=== PATIENT | female | born 1950 | race Caucasian/White ===

== ENCOUNTER 2023-02-02 08:36 | Outpatient (OUT) | payer MEDICARE, SELFPAY ==
[2023-02-02 08:59] LABS: Basophils Percent Auto 0.5 % (0.2-2.0); Eosinophils Absolute Auto 0.2 10^3/uL (0.0-0.7); Eosinophils Percent Auto 3.7 % (0.9-7.0); Hematocrit 41.5 % (36.0-48.0); Hemoglobin 13.6 g/dL (12.0-16.0); Lymphocytes Absolute Auto 1.5 10^3/uL (1.2-3.8); Lymphocytes Percent Auto 38.3 % (20.5-60.0); Mean Corpuscular HGB Conc 32.8 g/dL (29.9-35.2); Mean Corpuscular Hemoglobin 31.3 pg (26.7-34.0); Mean Corpuscular Volume 95.6 fL (81.0-99.0); Mean Platelet Volume 9.3 fL (9.5-13.5); Monocytes Absolute Auto 0.3 10^3/uL (0.3-0.8); Monocytes Percent Auto 7.7 % (1.7-12.0); Neutrophils Percent Auto 49.8 % (43.0-75.0); Platelet Count 244 10^3/uL (150-450); Red Blood Count 4.34 10^6/uL (4.20-5.40); Red Cell Distribution Width 13.1 % (11.0-15.0)
[2023-02-02 09:21] LABS: Estimated Average Glucose 111 mg/dL; Glycohemoglobin A1C 5.5 % (4.5-6.2)
[2023-02-02 10:05] LABS: Alanine Aminotransferase 24 U/L (14-59); Albumin Globulin Ratio 0.9; Albumin Level 3.5 g/dL (3.4-5.0); Alkaline Phosphatase 68 U/L (46-116); Anion Gap 12.9; Aspartate Amino Transferase 20 U/L (15-37); BUN Creatinine Ratio 22.3; Bilirubin Total 0.5 mg/dL (0.2-1.0); Calcium 8.8 mg/dL (8.5-10.1); Carbon Dioxide 26.5 mmol/L (21.0-32.0); Chloride 105 mmol/L (98-107); Chol HDL Ratio 3.3; Cholesterol 225 mg/dL (<=200); Estimated GFR (African America >60 (>=60); Estimated GFR (Non-African Ame 52 (>=60); Free T3 2.35 pg/mL (2.18-3.98); Glucose 94 mg/dL (74-106); HDL Cholesterol 68 mg/dL (40-60); Potassium 4.4 mmol/L (3.5-5.1); Sodium 140 mmol/L (136-145); Total Protein 7.5 g/dL (6.4-8.2); Triglycerides 143 mg/dL (<=150); VLDL CHOLESTEROL 28.6 mg/dL
== END 2023-02-02 08:37 | disposition home or self-care (01) ==
PROVIDERS: PCP Family Medicine; Visit Provider Family Medicine
DX: E78.00 Pure hypercholesterolemia, unspecified (principal); R53.83 Other fatigue; Z12.12 Encounter for screening for malignant neoplasm of rectum; R73.09 Other abnormal glucose
CPT/HCPCS: 36415; 80053; 80061; 83036; 84436; 84443; 84481; 85025

== ENCOUNTER 2023-02-03 10:23 | Outpatient (REF) | payer MEDICARE, SELFPAY ==
[2023-02-03 15:48] LABS: Occult Blood Negative
== END 2023-02-03 10:24 | disposition home or self-care (01) ==
LOC: LAB 10:23
PROVIDERS: PCP Family Medicine; Visit Provider Family Medicine
DX: Z12.12 Encounter for screening for malignant neoplasm of rectum (principal)
CPT/HCPCS: G0328

== ENCOUNTER 2023-07-15 14:00 | Outpatient (OUT) | payer MEDICARE, SELFPAY ==
--- NOTE | 2023-07-15 14:08 | XR_ITS ---
The [address] [address] Patient Name: MAGALI ALDRICH MRN: [id number] date: 1950 Sex: F Assigned Patient Location: [facility] Current Patient Location: Accession/Order Number: [id number] Exam Date: 07/15/2023 14:10 Report Date: 07/16/2023 11:09 At the request of: KERRIE ALVARES Procedure: XR cervical spine 2-3V PROCEDURE: XR cervical spine 2-3V DATE: 07/15/2023 2:10 PM EDT COMPARISONS: None. CLINICAL INDICATION: 72 years Female left arm numbness R20.0 FINDINGS: There is no evidence of fractures, subluxation or other acute osseous abnormalities. There is mild intervertebral disc space degenerative changes C5-6 and C6-7. There is minimal anterior subluxation C7 on T1, probably secondary to facet degenerative changes. There is mild scattered cervical facet degenerative changes. XR/XR cervical spine 2-3V IMPRESSION: These radiographic views of the cervical spine show no evidence of acute abnormalities. Scattered degenerative spondylosis. Electronically authenticated by: BK PARK Date: 07/16/2023 11:09
== END 2023-07-15 14:01 | disposition home or self-care (01) ==
LOC: RAD 14:03
PROVIDERS: PCP Family Medicine; Visit Provider Family Medicine
DX: R20.0 Anesthesia of skin (principal); M47.812 Spondylosis without myelopathy or radiculopathy, cervical region
CPT/HCPCS: 72040

== ENCOUNTER 2023-07-22 08:48 | Outpatient (RCR) | payer MEDICARE, SELFPAY | END 2023-08-20 17:10 | disposition home or self-care (01) | LOC: PT 08:48 | PROVIDERS: PCP Family Medicine; Visit Provider Family Medicine | DX: M54.9 Dorsalgia, unspecified (principal); R20.0 Anesthesia of skin | CPT/HCPCS: 97110; 97140; 97162 ==

== ENCOUNTER 2023-08-06 09:18 | Outpatient (OUT) | payer MEDICARE, SELFPAY ==
--- NOTE | 2023-08-06 09:23 | MM_ITS ---
Patient Name: MAGALI ALDRICH MR#: [id number] : 1950 Exam Date: 08/06/2023 Ordering Doctor: DR Rico Hammer . RADIOLOGY REPORT PROCEDURE: MM TOMOSYNTHESIS SCREENING BI COMPARISON: MG MAMM SCREEN 3D SANTANA CAD, 07/22/2021. MG MAMM SCREEN 3D SANTANA CAD, 07/24/2022. INDICATIONS: screening Calculator Name NCI Breast Cancer Risk Assessment Tool 5 Year Breast Cancer Risk 2.00% Lifetime Breast Cancer Risk 4.50% Personal Breast Cancer No Personal Ovarian Cancer No Treatments None Family Cancers Mother with lung cancer at age 80; Grandfather-maternal with colon cancer at age ~90. LOCATION: The [facility] BREAST COMPOSITION: The breasts are almost entirely fatty. FINDINGS: DIAGNOSTIC CATEGORY 1--NEGATIVE. NO CHANGE FROM COMPARISON ASSESSMENT. Scattered benign-appearing calcifications are present. Scattered benign-appearing lymph nodes are present. RIGHT BREAST: No significant suspicious finding. LEFT BREAST: No significant suspicious finding. RECOMMENDATIONS: ROUTINE MAMMOGRAM AND CLINICAL EVALUATION IN 12 MONTHS. PLEASE NOTE: A NORMAL MAMMOGRAM DOES NOT EXCLUDE THE POSSIBILITY OF BREAST CANCER. A CLINICALLY SUSPICIOUS PALPABLE LUMP SHOULD BE BIOPSIED. Dictated by: Ford Painter MD on 08/06/2023 at 10:21 Approved by: Ford Painter MD on 08/06/2023 at 10:22
--- OUTSIDE RECORDS SUMMARY | 2023-08-06 09:28 | XMS_ITS | CCD ---
Author Organization [facility] Care Team Providers Care Foam Fabricator Name Role Phone Kerrie Hammer Primary Care Physician Kerrie Hammer Referring Unavailable NILLNoam Attending Unavailable NILL, Noam Peter Attending Unavailable LueLorena Attending Unavailable LueLorena Attending Unavailable LueLorena Attending Unavailable LueLorena Attending Unavailable HOY ., DR SY Admitting Unavailable HOY ., DR SY Attending Unavailable HOY ., DR SY Consulting Unavailable HOY ., DR SY Primary Care Unavailable NILL ., DR JEONG Attending Unavailable NILL ., DR JEONG Consulting Unavailable NILL ., DR JEONG Admitting Unavailable HOY ., DR SY Primary Care Unavailable YARITZA II, TYLER Consulting Unavailable KOMA, SHANTHI Consulting Unavailable HOY ., DR SY Admitting Unavailable HOY ., DR SY Attending Unavailable HOY ., DR SY Consulting Unavailable HOY ., DR SY Primary Care Unavailable ZIEBER, DR RUTH Peter Consulting Unavailable HOY ., DR SY Primary Care Unavailable HOY ., DR SY Admitting Unavailable HOY ., DR SY Attending Unavailable HOY ., DR SY Consulting Unavailable [place], DR KENN Loyd Consulting Unavailable HOY ., DR SY Primary Care Unavailable HOY ., DR SY Admitting Unavailable HOY ., DR SY Attending Unavailable HOY ., DR SY Consulting Unavailable Allergies Allergy Classification Reported Allergen(s) Allergy Type Date of Onset Reaction(s) Facility (3 sources) Pseudoephedrine; Translations: [pseudoephedrine] Drug Allergy Eruption (morphologic abnormality) [facility] (3 sources) Sulfonamides (Antibiotic); Translations: [sulfa drugs] Drug allergy Unknown (qualifier value), Eruption of skin (disorder) [facility] (1 source) Pseudoephedrine Drug Allergy [facility] (1 source) Sulfonamides (Antibiotic) Drug allergy (disorder) [facility] Medications Current Medications Medication Drug Class(es) Dates Sig (Normalized) Sig (Original) cetirizine hydrochloride 10 mg oral tablet (1 source) Histamine-1 Receptor Antagonist Start: 04-08-2022 take 1 tablet by mouth at bedtime cetirizine 10 mg Tab 10 mg = 1 tab(s), Oral, Bedtime, Refills(s) 0 Start Date: 04/08/22 Status: Ordered fluticasone propionate 0.05 mg/actuat metered dose nasal spray (3 sources) Corticosteroid Start: 04-08-2022 Flonase 0.05 mg/inh [place] 1 spray(s), Nasal, BID, Refill(s) 0 Start Date: 04/08/22 Status: Ordered Start: 06-04-2021 fluticasone pr opionate Inhalation, Refills(s) 0 Start Date: 06/04/21 Status: Ordered Start: 06-04-2021 fluticasone fu roate 50 mcg inhalation powder Inhalation, q24hr, Refills(s) 0 Start Date: 06/04/21 Status: Ordered ICaps AREDS 2 (2 sources) Start: 06-04-2021 ICaps AREDS 2 Refill(s) 0 Start Date: 06/04/21 Status: Ordered predniSONE (1 source) Start: 10-08-2021 predniSONE Ora l, Daily, Refills(s) 0 Start Date: 10/08/21 Status: Ordered simvastatin 20 mg oral tablet (2 sources) HMG-CoA Reductase Inhibitor Start: 06-04-2021 take 1 mg by mouth once daily at bedtime simvastatin 20 mg Tab mg tab(s), Oral, Once a day (at bedtime), Refills(s) 0 Start Date: 06/04/21 Status: Ordered Problems Active Problems Problem Classification Problem Date Documented Da te Episodic/Chronic Abdominal pain (3 sources) Pelvic and perineal pain; Translations: [Pelvic and perineal pain] Onset: 10-08-2021 Episodic Asthma (1 source) Asthma 04-08-2022 Chronic Congestive heart failure; nonhypertensive (1 source) Unspecified diastolic (congestive) heart failure; Translations: [UNSPECIFIED DIASTOLIC HEART FAILURE] Onset: 07-30-2022 Chronic Disorders of lipid metabolism (5 sources) Hypercholesterolemia ; Translations: [Hyperlipidemia] Onset: 05-28-2022 06-04-2021 Chronic Diverticulosis and diverticulitis (1 source) Diverticulosis of large intestine without perforation or abscess without bleeding; Translations: [DVRTCLOS LG INT NO PERF/ABSC W/O BL] Onset: 05-28-2022 Chronic Hypertension with complications and secondary hypertension (1 source) Hypertensive heart disease with heart failure; Translations: [HTN HEART DISEASE W/HEART FAIL] Onset: 07-30-2022 Chronic Malaise and fatigue (4 sources) Other fatigue; Translations: [OTHER FATIGUE] Onset: 07-25-2022 Episodic Menopausal disorders (7 sources) Atrophic vaginitis; Translations: [Postmenopausal atrophic vaginitis] Onset: 10-08-2021 Chronic Nutritional deficiencies (4 sources) Vitamin D deficiency, unspecified; Translations: [VITAMIN D DEFICIENCY UNSPECIFIED] Onset: 12-02-2021 Chronic Osteoarthritis (3 sources) Arthritis; Translations: [Unspecified osteoarthritis, unspecified site] Onset: 05-28-2022 06-04-2021 Chronic Other aftercare (1 source) Other shelter (current) drug therapy; Translations: [OTH CUSTODIAL CURRENT DRUG THERAPY] Onset: 05-28-2022 Episodic Other diseases of bladder and urethra (3 sources) Urethral caruncle; Translations: [Urethral caruncle] Onset: 10-08-2021 Episodic Other diseases of veins and lymphatics (1 source) Venous insufficiency of leg 04-08-2022 Episodic Other diseases of veins and lymphatics (1 source) Other specified disorders of veins; Translations: [OTHER SPECIFIED DISORDERS OF VEINS] Onset: 05-28-2022 Episodic Other diseases of veins and lymphatics (1 source) Venous insufficiency (chronic) (peripheral); Translations: [VENOUS INSUFF CHRONIC PERIPHERAL] Onset: 05-28-2022 Episodic Other female genital disorders (1 source) Adenomatous polyp of cervix; Translations: [Polyp of cervix uteri] Onset: 10-08-2021 Episodic Other female genital disorders (2 sources) Polyp of cervix 06-24-2021 Episodic Other nutritional; endocrine; and metabolic disorders (1 source) Body mass index 30+ - obesity 06-04-2021 Chronic Other nutritional; endocrine; and metabolic disorders (1 source) Body mass index 40+ - severely obese 04-24-2022 Chronic Other screening for suspected conditions (not mental disorders or infectious disease) (6 sources) Screening for malignant neoplasm of colon done; Translations: [Encounter for screening for malignant neoplasm of colon] Onset: 04-24-2022 Episodic Other upper respiratory disease (1 source) Seasonal allergic rhinitis 04-08-2022 Chronic Prolapse of female genital organs (2 sources) Cystocele 06-24-2021 Chronic Residual codes; unclassified (1 source) Dependent edema 04-08-2022 Episodic Residual codes; unclassified (1 source) Family history of malignant neoplasm of digestive organs; Translations: [FAM HX MALIG NEOPLASM DIGESTIV ORGN] Onset: 07-29-2022 Episodic Residual codes; unclassified (1 source) Family history of malignant neoplasm of trachea, bronchus and lung; Translations: [FAM HX MALIG NEOPLSM TRACH BRON LNG] Onset: 07-29-2022 Episodic Residual codes; unclassified (1 source) Acquired absence of other specified parts of digestive tract; Translations: [ACQ ABSENCE OTH PART DIGESTV TRACT] Onset: 05-28-2022 Episodic Unclassified (1 source) Patient encounter status 04-24-2022 Past or Other Problems Problem Classification Problem Date Documented Da te Episodic/Chronic Deficiency and other anemia (1 source) Anemia, unspecified; Translations: [ANEMIA UNSPECIFIED] Onset: 12-04-2021 Episodic Diabetes mellitus without complication (1 source) Other abnormal glucose; Translations: [OTHER ABNORMAL GLUCOSE] Onset: 12-04-2021 Episodic Other nutritional; endocrine; and metabolic disorders (1 source) Overweight; Translations: [OVERWEIGHT] Onset: 12-04-2021 Episodic Residual codes; unclassified (1 source) Localized edema; Translations: [LOCALIZED EDEMA] Onset: 12-04-2021 Episodic Unclassified (2 sources) Finding of sensation of bladder 06-24-2021 Results Test Name Value Interpretation Reference Range Facility C. DIFF PCRon 07-25-2022 C. DIFFICILE PCR Negative Normal NEGATIVE [facility] Comment on above: Performed By: #### [facility] #### [facility] [address] [place] [address] Dr. Bhumi Lewis BNPon 07-24-2022 Natriuretic peptide B (Bld) [Mass/Vol] 381.0 pg/mL Normal <=900.0 [facility] Comment on above: Performed By: #### T SH, LIVER, T7, BNP, BMP #### [facility] [address] [place] [address] Dr. Bhumi Lewis CBC AUTO DIFFon 07-24-2022 BASO # 0.0 103/ul Normal 0.0-0.1 [facility] Comment on above: Performed By: #### C BC #### [facility] [address] [place] [address] Dr. Bhumi Lewis Basophils/100 WBC (Bld) 0.4 % Normal 0.2-2.0 [facility] Comment on above: Performed By: #### C BC #### [facility] [address] [place] [address] Dr. Bhumi Lewis EO # 0.1 103/ul Normal 0.0-0.7 [facility] Comment on above: Performed By: #### C BC #### [facility] [address] [place] [address] Dr. Bhumi Lewis Eosinophils/100 WBC (Bld) 2.7 % Normal 0.9-7.0 [facility] Comment on above: Performed By: #### C BC #### [facility] [address] [place] [address] Dr. Bhumi Lewis Erythrocyte distribution width (RBC) [Ratio] 13.1 % Normal 11.0-15.0 [facility] Comment on above: Performed By: #### C BC #### [facility] [address] [place] [address] Dr. Bhumi Lewis Hematocrit (Bld) [Volume fraction] 40.0 % Normal 36.0-48.0 [facility] Comment on above: Performed By: #### C BC #### [facility] [address] [place] [address] Dr. Bhumi Lewis Hemoglobin (Bld) [Mass/Vol] 13.2 g/dL Normal 12.0-16.0 [facility] Comment on above: Performed By: #### C BC #### [facility] [address] [place] [address] Dr. Bhumi Lewis IG # 0.02 10e3/ul Normal 0.00-0.03 [facility] Comment on above: Performed By: #### C BC #### [facility] [address] [place] [address] Dr. Bhumi Lewis IG % 0.4 % Normal 0.0-0.5 [facility] Comment on above: Performed By: #### C BC #### [facility] [address] [place] [address] Dr. Bhumi Lewis LYMPH # 1.4 103/ul Normal 1.2-3.8 [facility] Comment on above: Performed By: #### C BC #### [facility] [address] [place] [address] Dr. Bhumi Lewis Lymphocytes/100 WBC (Bld) 30.3 % Normal 20.5-60.0 [facility] Comment on above: Performed By: #### C BC #### [facility] [address] [place] [address] Dr. Bhumi Lewis MANUAL DIFF REQ NO Normal [facility] Comment on above: Performed By: #### C BC #### [facility] [address] [place] [address] Dr. Bhumi Lewis MCH (RBC) [Entitic mass] 31.1 pg Normal 26.7-34.0 [facility] Comment on above: Performed By: #### C BC #### [facility] [address] [place] [address] Dr. Bhumi Lewis MCHC (RBC) [Mass/Vol] 33.0 g/dL Normal 29.9-35.2 [facility] Comment on above: Performed By: #### C BC #### [facility] [address] [place] [address] Dr. Bhumi Lewis MCV (RBC) [Entitic vol] 94.3 fL Normal 81.0-99.0 [facility] Comment on above: Performed By: #### C BC #### [facility] [address] [place] [address] Dr. Bhumi Lewis MONO # 0.4 103/ul Normal 0.3-0.8 [facility] Comment on above: Performed By: #### C BC #### [facility] [address] [place] [address] Dr. Bhumi Lewis Monocytes/100 WBC (Bld) 9.3 % Normal 1.7-12.0 [facility] Comment on above: Performed By: #### C BC #### [facility] [address] [place] [address] Dr. Bhumi Lewis NEUT # 2.6 103/ul Normal 1.4-6.5 [facility] Comment on above: Performed By: #### C BC #### [facility] [address] [place] [address] Dr. Bhumi Lewis Neutrophils/100 WBC (Bld) 56.9 % Normal 43.0-75.0 [facility] Comment on above: Performed By: #### C BC #### [facility] [address] [place] [address] Dr. Bhumi Lewis Platelet mean volume (Bld) [Entitic vol] 9.2 fL Critically low 9.5-13.5 [facility] Comment on above: Performed By: #### C BC #### [facility] [address] [place] [address] Dr. Bhumi Lewis PLT 249 103/ul Normal 150-450 [facility] Comment on above: Performed By: #### C BC #### [facility] [address] [place] [address] Dr. Bhumi Lewis RBC 4.24 106/ul Normal 4.20-5.40 [facility] Comment on above: Performed By: #### C BC #### [facility] [address] [place] [address] Dr. Bhumi Lewis WBC 4.5 103/ul Normal 4.0-11.0 [facility] Comment on above: Performed By: #### C BC #### [facility] [address] [place] [address] Dr. Bhumi Lewis FREE THYROXINE INDEX T7on 04 -14-2023 FTI 2.18 Normal 1.30-4.50 [facility] Comment on above: Performed By: #### T SH, LIVER, T7, BNP, BMP #### [facility] [address] [address] [address] Bhumi Lewis T3U 33.0 % Normal 30.0-39.0 [facility] Comment on above: Performed By: #### T SH, LIVER, T7, BNP, BMP #### [facility] [address] [place] [address] Dr. Bhumi Lewis T4 [Mass/Vol] 6.60 ug/dL Normal 4.80-13.90 [facility] Comment on above: Performed By: #### T SH, LIVER, T7, BNP, BMP #### [facility] [address] [place] [address] Dr. Bhumi Lewis LIVER PROFILEon 07-24-2022 Albumin [Mass/Vol] 3.4 g/dL Normal 3.4-5.0 [facility] Comment on above: Performed By: #### T SH, LIVER, T7, BNP, BMP #### [facility] [address] [address] [address] Bhumi Lewis Albumin/Globulin [Mass ratio] 0.9 {ratio} Normal [facility] Comment on above: Performed By: #### T SH, LIVER, T7, BNP, BMP #### [facility] [address] [address] [address] Bhumi Lewis ALP [Catalytic activity/Vol] 66 U/L Normal 46-116 [facility] Comment on above: Performed By: #### T SH, LIVER, T7, BNP, BMP #### [facility] [address] [address] [address] Bhumi Lewis ALT [Catalytic activity/Vol] 26 U/L Normal 14-59 [facility] Comment on above: Performed By: #### T SH, LIVER, T7, BNP, BMP #### [facility] [address] [address] [address] Bhumi Lewis AST [Catalytic activity/Vol] 21 U/L Normal 15-37 [facility] Comment on above: Performed By: #### T SH, LIVER, T7, BNP, BMP #### [facility] [address] [place] [address] Dr. Bhumi DILLONI, CONJUGATED 0.1 mg/dL Normal 0.0-0.2 [facility] Comment on above: Performed By: #### T SH, LIVER, T7, BNP, BMP #### [facility] [address] [place] [address] Dr. Bhumi Lewis Bilirubin [Mass/Vol] 0.2 mg/dL Normal 0.2-1.0 [facility] Comment on above: Performed By: #### T SH, LIVER, T7, BNP, BMP #### [facility] [address] [place] [address] Dr. Bhumi Lewis Globulin (S) [Mass/Vol] 4.0 g/dL Normal [facility] Comment on above: Performed By: #### T SH, LIVER, T7, BNP, BMP #### [facility] [address] [place] [address] Dr. Bhumi Lewis Protein [Mass/Vol] 7.4 g/dL Normal 6.4-8.2 [facility] Comment on above: Performed By: #### T SH, LIVER, T7, BNP, BMP #### [facility] [address] [place] [address] Dr. Bhumi Lewis MG MAMM SCREEN 3D SANTANA CADon 07-24-2022 MG MAMM SCREEN 3D SANTANA CAD Patient: MAGALI ALDRICH Exam Date: 07/24/2022 : 1950 Gender:F Ordering : DR KERRIE HAMMER . Admission #: [id number] Family : Order #: [id number] CLICK HERE TO VIEW EXAM RADIOLOGY REPORT PROCEDURE: MAMMOGRAM SCREENING 3D BILATERAL CAD COMPARISON: MG MAMM SCREEN 3D SANTANA CAD, 07/16/2020. MG MAMM SCREEN 3D SANTANA CAD, 07/22/2021. INDICATIONS: Screening mammography Calculator Name NCI Breast Cancer Risk Assessment Tool 5 Year Breast Cancer Risk 2.00% Lifetime Breast Cancer Risk 4.80% Personal Breast Cancer No Personal Ovarian Cancer No Treatments None Family Cancers Mother with lung cancer at age 80; Grandfather-maternal with colon cancer at age 90. LOCATION: [facility] BREAST COMPOSITION: Almost entirely fatty. FINDINGS: DIAGNOSTIC CATEGORY 1--NEGATIVE. NO CHANGE FROM COMPARISON ASSESSMENT. Scattered benign-appearing calcifications are present. Scattered benign-appearing lymph nodes are present. RIGHT BREAST: No significant suspicious finding. LEFT BREAST: No significant suspicious finding. RECOMMENDATIONS: ROUTINE MAMMOGRAM AND CLINICAL EVALUATION IN 12 MONTHS. PLEASE NOTE: A NORMAL MAMMOGRAM DOES NOT EXCLUDE THE POSSIBILITY OF BREAST CANCER. A CLINICALLY SUSPICIOUS PALPABLE LUMP SHOULD BE BIOPSIED. Dictated by: Kenn Painter MD on 07/27/2022 at 09:51 Approved by: Kenn Pain[place] MD on 07/27/2022 at 09:52 Normal [facility] PROF CHEM 8 (BAS METB)on Anion gap [Moles/Vol] 15.0 mmol/L Normal [facility] Comment on above: Performed By: #### T SH, LIVER, T7, BNP, BMP #### [facility] [address] [place] [address] Dr. Bhumi Lewis Calcium [Mass/Vol] 9.0 mg/dL Normal 8.5-10.1 [facility] Comment on above: Performed By: #### T SH, LIVER, T7, BNP, BMP #### [facility] [address] [place] [address] Dr. Bhumi Lewis Chloride [Moles/Vol] 107 mmol/L Normal 98-107 [facility] Comment on above: Performed By: #### T SH, LIVER, T7, BNP, BMP #### [facility] [address] [place] [address] Dr. Bhumi Lewis CO2 [Moles/Vol] 26.7 mmol/L Normal 21.0-32.0 [facility] Comment on above: Performed By: #### T SH, LIVER, T7, BNP, BMP #### [facility] [address] [place] [address] Dr. Bhumi Lewis Creatinine [Mass/Vol] 1.01 mg/dL Normal 0.55-1.02 [facility] Comment on above: Performed By: #### T SH, LIVER, T7, BNP, BMP #### [facility] [address] [place] [address] Dr. Bhumi Lewis EGFR-AF [place] >60 Normal >=60 [facility] Comment on above: Performed By: #### T SH, LIVER, T7, BNP, BMP #### [facility] [address] [address] [address] Bhumi Lewis EGFR-NON AF [place] 54 mL/min/1.73m2 Critically low >=60 [facility] Comment on above: Performed By: #### T SH, LIVER, T7, BNP, BMP #### [facility] [address] [place] [address] Dr. Bhumi Lewis Glucose [Mass/Vol] 100 mg/dL Normal 74-106 [facility] Comment on above: Performed By: #### T SH, LIVER, T7, BNP, BMP #### [facility] [address] [place] [address] Dr. Bhumi Lewis Potassium [Moles/Vol] 4.7 mmol/L Normal 3.5-5.1 [facility] Comment on above: Performed By: #### T SH, LIVER, T7, BNP, BMP #### [facility] [address] [place] [address] Dr. Bhumi Lewis Sodium [Moles/Vol] 144 mmol/L Normal 136-145 [facility] Comment on above: Performed By: #### T SH, LIVER, T7, BNP, BMP #### [facility] [address] [place] [address] Dr. Bhumi Lewis Urea nitrogen [Mass/Vol] 22.0 mg/dL Critically high 7.0-18.0 [facility] Comment on above: Performed By: #### T SH, LIVER, T7, BNP, BMP #### [facility] [address] [place] [address] Dr. Bhumi Lewis Urea nitrogen/Creatinine [Mass ratio] 21.8 mg/mg Normal [facility] Comment on above: Performed By: #### T SH, LIVER, T7, BNP, BMP #### [facility] [address] [place] [address] Dr. Bhumi Lewis TSHon 07-24-2022 TSH 2.303 uIU/mL Normal 0.358-3.740 [facility] Comment on above: Performed By: #### T SH, LIVER, T7, BNP, BMP #### [facility] [address] [address] [address] Bhumi Lewis Reminderson 05-29-2022 Reminders - From: Hien White LPN To: GSN - Clinical; Sent: 05/29/2022 13:21:17 EST Show up: 04/26/2032 07:00:00 EST Subject: colonoscopy recall Due Date/Time: 05/27/2032 07:00:00 EST Reminder/Recall Patient is due for screening colonoscopy 05/27/2032. Normal [facility] Outside Colonoscopyon 2022 Outside Colonoscopy [id number] .[id number]:127 Normal [facility] Consent for Procedure/Surger yon 04-27-2022 Consent for Procedure/Surgery [id number] .[id number]:127 Normal [facility] XR DEXA BONE DENSITYon 02-25 XR DEXA BONE DENSITY EXAMINATION: XR DEX A BONE DENSITY, 02/25/2022 8:04 AM EST HISTORY: Primary ovarian failure COMPARISON: DEXA bone densitometry 09/25/2005 TECHNIQUE: Dual-energy X-ray absorptiometry (DEXA) bone density study performed for the axial skeleton. FINDINGS: SPINE ANALYSIS: Average bone mineral density is 1.155 g/cm2. T-score (standard deviation relative to young adult mean): -0.2 . +0.2% change since prior study. HIP ANALYSIS: Lowest bone mineral density is within the right femoral neck, 0.936 g/cm2. T-score (standard deviation relative to young adult mean): -0.7 . -10.0% change since prior study. IMPRESSION: World [employer] Organization Classification: Normal - Low Fracture Risk Electronically authenticated by: RUTH CARTER Date: 2022-02-25 08:56 Normal [facility] Physician Referralon 022 Physician Referral [id number] .[id number]:127 Normal [facility] INSULINon 12-03-2021 Insulin 10.4 uIU/mL Normal 2.6-24.9 [facility] Comment on above: Performed By: #### I NSULIN ####[facility] [id number] [place], [place] [address]GiDr. Bhumi Lewis T4, T3U, FTI [facility] 12-03 Free Thyroxine Index 1.4 Normal 1.2-4.9 [facility] Comment on above: Performed By: #### T HYLC #### [facility] [address] [address] [address] Bhumi Lewis T3 Uptake 23 % Critically low 24-39 [facility] Comment on above: Performed By: #### T HYLC #### [facility] [address] [address] [address] Bhumi Lewis T4 [Mass/Vol] 6.2 ug/dL Normal 4.5-12.[address] [facility] Comment on above: Performed By: #### T HYLC #### [facility] [address] [address] [address] Bhumi Lewis VIT D 25-OH [facility] 2021 Vitamin D, 25-Hydroxy 34.6 ng/mL Normal 30.0-100.0 [facility] Comment on above: Result Comment: Romy min D deficiency has been defined by the [place] of [employer] and an Endocrine Society practice guideline as a level of serum 25-OH vitamin D less than 20 ng/mL (1,2). The Endocrine Society went on to further define vitamin D insufficiency as a level between 21 and 29 ng/mL (2). 1. IOM ([place] [employer]). 2010. Dietary reference intakes for calcium and D. [place]: The National Academies Press. 2. Elizabeth BULLOCK, [place], Yumi JAIMES, et al. Evaluation, treatment, and prevention of vitamin D deficiency: an Endocrine Society clinical practice guideline. JCEM. 2011 Karl[place]; 96(7):1911-30. Performed By: #### V ITADLC ####[facility] [id number] [place], [place] [address]Dr. Bhumi Lewis BNPon 12-02-2021 Natriuretic peptide B (Bld) [Mass/Vol] 225.0 pg/mL Normal <=900.0 [facility] Comment on above: Performed By: #### T SH, BNP, CMP, LIPID ####[facility] [id number] [place], [place] [address]Dr. Bhumi Joshua CBC AUTO DIFFon 12-02-2021 BASO # 0.0 103/ul Normal 0.0-0.1 [facility] Comment on above: Performed By: #### C BC ####[facility] [id number] [place], [place] [address]Dr. Bhumi Lewis Basophils/100 WBC (Bld) 0.2 % Normal 0.2-2.0 [facility] Comment on above: Performed By: #### C BC ####[facility] [id number] [place], [place] [address]Dr. Bhumi Lewis EO # 0.1 103/ul Normal 0.0-0.7 [facility] Comment on above: Performed By: #### C BC ####[facility] [id number] [place], [place] [address]Dr. Bhumi Lewis Eosinophils/100 WBC (Bld) 2.9 % Normal 0.9-7.0 [facility] Comment on above: Performed By: #### C BC ####[facility] [address] [place], [place] [address]Dr. Bhumi Lewis Erythrocyte distribution width (RBC) [Ratio] 13.2 % Normal 11.0-15.0 [facility] Comment on above: Performed By: #### C BC ####[facility] [address] [place], [place] [address]Dr. Bhumi Lewis Hematocrit (Bld) [Volume fraction] 41.6 % Normal 36.0-48.0 [facility] Comment on above: Performed By: #### C BC ####[facility] [address] [place] [id number]. Bhumi Lewis Hemoglobin (Bld) [Mass/Vol] 13.4 g/dL Normal 12.0-16.0 [facility] Comment on above: Performed By: #### C BC ####[facility] [address]desykt[address] [place] [id number]. Bhumi Lewsi IG # 0.01 10e3/ul Normal 0.00-0.03 [facility] Comment on above: Performed By: #### C BC ####[facility] Qtwklxiygo0534 [place] [address]Dr. Bhumi Lewis IG % 0.2 % Normal 0.0-0.5 [facility] Comment on above: Performed By: #### C BC ####[facility] [address] [place] [address]Dr. Bhumi Lewis LYMPH # 1.5 103/ul Normal 1.2-3.8 [facility] Comment on above: Performed By: #### C BC ####[facility] Dyauvqeqfx[address] [place] [address]Dr. Bhumi Lewis Lymphocytes/100 WBC (Bld) 32.2 % Normal 20.5-60.0 [facility] Comment on above: Performed By: #### C BC ####[facility] [address]gcbl[address] [place] [address]Dr. Bhumi Lewis MANUAL DIFF REQ NO Normal [facility] Comment on above: Performed By: #### C BC ####[facility] Zr[address]uqeosp[address] [place] [address]Dr. Bhumi Lewis MCH (RBC) [Entitic mass] 31.7 pg Normal 26.7-34.0 [facility] Comment on above: Performed By: #### C BC ####[facility] [address]fly[address] [place] [address]Dr. Bhumi Lewis MCHC (RBC) [Mass/Vol] 32.2 g/dL Normal 29.9-35.2 [facility] Comment on above: Performed By: #### C BC ####[facility] [address] [place], [place] [address]Dr. Bhumi Joshua MCV (RBC) [Entitic vol] 98.3 fL Normal 81.0-99.0 [facility] Comment on above: Performed By: #### C BC ####[facility] [address]riwy[address] [place] [address]Dr. Bhumi Lewis MONO # 0.4 103/ul Normal 0.3-0.8 [facility] Comment on above: Performed By: #### C BC ####[facility] [address]tdc[address] [place] [address]Dr. Bhumi Joshua Monocytes/100 WBC (Bld) 7.4 % Normal 1.7-12.0 [facility] Comment on above: Performed By: #### C BC ####[facility] E[address] [place] [address]Dr. Bhumi Lewis NEUT # 2.7 103/ul Normal 1.4-6.5 [facility] Comment on above: Performed By: #### C BC ####[facility] Xpuysxmrcr[address] [place] [address]Dr. Kortneynanette Lewis Neutrophils/100 WBC (Bld) 57.1 % Normal 43.0-75.0 [facility] Comment on above: Performed By: #### C BC ####[facility] [address]xobsx[address] [place] [address]Dr. Bhumi Joshua Platelet mean volume (Bld) [Entitic vol] 9.1 fL Critically low 9.5-13.5 [facility] Comment on above: Performed By: #### C BC ####[facility] [address] [place] [address]Dr. Bhumi Joshua PLT 243 103/ul Normal 150-450 [facility] Comment on above: Performed By: #### C BC ####[facility] [address]ywcqwxx[address] [place] [address]Dr. Kortneynanette Joshua RBC 4.23 106/ul Normal 4.20-5.40 [facility] Comment on above: Performed By: #### C BC ####[facility] [address]ury[address] [place] [address]DrSuzy Lewis WBC 4.8 103/ul Normal 4.0-11.0 [facility] Comment on above: Performed By: #### C BC ####[facility] [address]xdxkp[address] [place] [address]Dr. Bhumi Lewis GLYCOHEMOGLOBIN A1Con 2021 ADA RECOMMENDATION SEE BELOW Normal [facility] Comment on above: Result Comment: ADA RECOMMENDED LIMIT 4.0 - 6.0 ADA THERAPEUTIC TARGET < 7.0 ACTION SUGGESTED > 7.0 Performed By: #### A 1C ####[facility] [address] [place] [address]Dr. Bhumi Lewis Glucose [Mass/Vol] 120 mg/dL Normal [facility] Comment on above: Performed By: #### A 1C ####[facility] [address] [place] [address]DrSuzy Lewis HbA1c (Bld) [Mass fraction] 5.8 % Normal 4.5-6.2 [facility] Comment on above: Performed By: #### A 1C ####[facility] [address] [place] [address]Dr. Bhumi Lewis IRONon 12-02-2021 Iron [Mass/Vol] 95.0 ug/dL Normal 50.0-170.0 [facility] Comment on above: Performed By: #### I HIWOT #### [facility] [address] [place], [place] [address] Dr. Bhumi Lewis LIPID PROFILEon 12-02-2021 CHOL-HDL RATIO NORM SEE BELOW Normal [facility] Comment on above: Result Comment: 3.3 - 4.4 LOW RISK 4.4 - 7.1 AVERAGE RISK 7.1 - 11.0 MODERATE RISK >11.0 HIGH RISK Performed By: #### T SH, BNP, CMP, LIPID ####[facility] [address]ks[address]ost[address] [place] [address]DrSuzy Lewis Cholesterol [Mass/Vol] 218 mg/dL Critically high <=200 [facility] Comment on above: Performed By: #### T SH, BNP, CMP, LIPID ####[facility] Ajvoxxkelz17[address] [place] [address]Dr. Bhumi Lewis Cholesterol in HDL [Mass/Vol] 62 mg/dL Critically high 40-60 [facility] Comment on above: Performed By: #### T SH, BNP, CMP, LIPID ####[facility] Uelvmircdc6916 [place] [address]Dr. Bhumi Lewis Cholesterol in LDL [Mass/Vol] 126.6 mg/dL Normal [facility] Comment on above: Performed By: #### T SH, BNP, CMP, LIPID ####[facility] Otdjmxyfkg23[address] [place] [address]Dr. Bhumi Lewis Cholesterol.total/Ch olesterol in HDL [Mass ratio] 3.5 {ratio} Normal [facility] Comment on above: Performed By: #### T SH, BNP, CMP, LIPID ####[facility] [address]xxjmj[address] [place] [address]Dr. Bhumi Lewis HDL NORMAL > or = 60 mg/dl - LO W CARDIOVASCULAR RISK <40 mg/dl - HIGH CARDIOVASCULAR RISK Normal [facility] Comment on above: Performed By: #### T SH, BNP, CMP, LIPID ####[facility] [address] [place] [address]Dr. Bhumi Lewis LDL CALC NORMAL SEE BELOW Normal [facility] Comment on above: Result Comment: <100 mg/dl OPTIMAL 100 - 129 mg/dl NEAR OR ABOVE OPTIMAL 130 - 159 mg/dl BORDERLINE HIGH 160 - 189 mg/dl HIGH >190 mg/dl VERY HIGH Performed By: #### T SH, BNP, CMP, LIPID ####[facility] [address] [place] [address]Dr. Bhumi Lewis Triglyceride [Mass/Vol] 147 mg/dL Normal <=150 [facility] Comment on above: Performed By: #### T SH, BNP, CMP, LIPID ####[facility] Vicxhwskji[address] [place] [address]Dr. Bhumi Lewis VLDL CALC 29.4 mg/dL Normal [facility] Comment on above: Performed By: #### T SH, BNP, CMP, LIPID ####[facility] M[address]vzoi[address] [place] [address]Dr. Bhumi Lewis PROF 14(COMP METB)on 022 Albumin [Mass/Vol] 3.6 g/dL Normal 3.4-5.0 [facility] Comment on above: Performed By: #### T SH, BNP, CMP, LIPID ####[facility] Ek[address]loob[address] [place] [address]Dr. Bhumi Lewis Albumin/Globulin [Mass ratio] 1.0 {ratio} Normal [facility] Comment on above: Performed By: #### T SH, BNP, CMP, LIPID ####[facility] [address]bi[address]ji[address] [place] [address]Dr. Bhumi Lewis ALP [Catalytic activity/Vol] 64 U/L Normal 46-116 [facility] Comment on above: Performed By: #### T SH, BNP, CMP, LIPID ####[facility] [address] [place], [place] [address]Dr. Bhumi Lewis ALT [Catalytic activity/Vol] 21 U/L Normal 14-59 [facility] Comment on above: Performed By: #### T SH, BNP, CMP, LIPID ####[facility] [address]mjosa[address] [place] [address]Dr. Bhumi Lewis Anion gap [Moles/Vol] 13.5 mmol/L Normal [facility] Comment on above: Performed By: #### T SH, BNP, CMP, LIPID ####[facility] [address] [place], [place] [address]Dr. Bhumi Lewis AST [Catalytic activity/Vol] 21 U/L Normal 15-37 [facility] Comment on above: Performed By: #### T SH, BNP, CMP, LIPID ####[facility] [address] [place] [address]Dr. Bhumi Lewis Bilirubin [Mass/Vol] 0.4 mg/dL Normal 0.2-1.0 [facility] Comment on above: Performed By: #### T SH, BNP, CMP, LIPID ####[facility] Ep[address]zail[address] [place] [address]Dr. Bhumi Lewis Calcium [Mass/Vol] 9.0 mg/dL Normal 8.5-10.1 [facility] Comment on above: Performed By: #### T SH, BNP, CMP, LIPID ####[facility] [address] [place] [address]Dr. Bhumi Lewis Chloride [Moles/Vol] 105 mmol/L Normal 98-107 [facility] Comment on above: Performed By: #### T SH, BNP, CMP, LIPID ####[facility] Ziel[address]xiflm[address] [place] [address]Dr. Bhumi Lewis CO2 [Moles/Vol] 24.7 mmol/L Normal 21.0-32.0 [facility] Comment on above: Performed By: #### T SH, BNP, CMP, LIPID ####[facility] Ed[address]dphl[address] [place] [address]Dr. Bhumi Lewis Creatinine [Mass/Vol] 1.04 mg/dL Critically high 0.55-1.02 [facility] Comment on above: Performed By: #### T SH, BNP, CMP, LIPID ####[facility] [address]ekl[address] [place] [address]Dr. Bhumi Lewis EGFR-AF JAMAICAN >60 Normal >=60 [facility] Comment on above: Performed By: #### T SH, BNP, CMP, LIPID ####[facility] [address]xdh[address] [place] [address]Dr. Bhumi Lewis EGFR-NON AF J[place] 52 mL/min/1.73m2 Critically low >=60 [facility] Comment on above: Performed By: #### T SH, BNP, CMP, LIPID ####[facility] [address]ismh[address] [place] [address]Dr. Bhumi Lewis Globulin (S) [Mass/Vol] 3.6 g/dL Normal [facility] Comment on above: Performed By: #### T SH, BNP, CMP, LIPID ####[facility] [address]cfyvl[address] [place] [address]Dr. Bhumi Lewis Glucose [Mass/Vol] 96 mg/dL Normal 74-106 [facility] Comment on above: Performed By: #### T SH, BNP, CMP, LIPID ####[facility] R[address]tf[address] [place] [address]Dr. Bhumi Lewis Potassium [Moles/Vol] 4.2 mmol/L Normal 3.5-5.1 [facility] Comment on above: Performed By: #### T SH, BNP, CMP, LIPID ####[facility] [address]teyevj[address] [place] [address]Dr. Bhumi Lewis Protein [Mass/Vol] 7.2 g/dL Normal 6.4-8.2 [facility] Comment on above: Performed By: #### T SH, BNP, CMP, LIPID ####[facility] [address]cfqca[address] [place] [address]Dr. Bhumi Lewis Sodium [Moles/Vol] 139 mmol/L Normal 136-145 [facility] Comment on above: Performed By: #### T SH, BNP, CMP, LIPID ####[facility] [address]fw[address] [place] [address]Dr. Bhumi Lewis Urea nitrogen [Mass/Vol] 20.0 mg/dL Critically high 7.0-18.0 [facility] Comment on above: Performed By: #### T SH, BNP, CMP, LIPID ####[facility] [address]trpp[address] [place] [address]Dr. Bhumi Lewis Urea nitrogen/Creatinine [Mass ratio] 19.2 mg/mg Normal [facility] Comment on above: Performed By: #### T SH, BNP, CMP, LIPID ####[facility] [address] [place] [address]Dr. Bhumi Lewis TSHon 12-02-2021 TSH 2.178 uIU/mL Normal 0.358-3.[address] [facility] Comment on above: Performed By: #### T SH, BNP, CMP, LIPID ####[facility] [address] [place] [address]Dr. Bhumi Lewis MRI Shoulder w/o Lefton 3 MRI Shoulder w/o Left HISTORY: Lateral left shoulder pain. Bruising laterally. TECHNIQUE: Routine non-contrast MRI of the shoulder , left side COMPARISON: Radiographs 10/08/2021. RESULT: Rotator Cuff Tendons: Mild to moderate tendinosis involving supraspinatus with area of high-grade partial-thickness articular sided tearing of the distal anterior fibers near the footplate measuring approximately 1.3 x 1.0 cm, with apparent few intact bursal sided fibers. Mild to moderate tendinosis involving infraspinatus with small areas of interstitial tearing. Mild tendinosis involving subscapularis, without tear. Teres minor appears intact. Long Head Biceps Tendon: Not visualized, likely torn with distal retraction. Muscle: Muscle bulk and signal intensity are within normal limits. Labrum: Areas of fraying/tearing. Bones and Marrow: No evidence of fracture or bone marrow replacing process. Glenohumeral Joint: Osteophytes without distinct full-thickness chondral defect. No joint effusion. Acromioclavicular Joint: Moderate degenerative changes with undersurface osteophytes. Other: No other significant abnormality. IMPRESSION: Rotator cuff tendinosis with area of high-grade partial-thickness tearing involving distal anterior supraspinatus as discussed, with few intact bursal sided fibers. Long head biceps tendon not well-visualized, likely torn with distal retraction. Report reported and signed by Claudio Rollins on 10/10/2021 1356 Normal [facility] Specialist Ambulatory Visit Summaryon 0 10-08-2021 Ambulatory Visit Summary MAGALI ALDRICH :1950 Visit Date:10/08/2021 Ambulatory Visit Instructions Your Diagnosis Urethral caruncle Vaginal atrophy Pelvic pain Cervical polyp Tests Performed Urnls Dip Stick Auto w/o Microscopy POC 42269 Your Care Team Attending Physician - Lorena Lee MD Primary Care Physician - Kerrie Hammer MD This Is Your Medications List estradiol topical (Estrace 0.1 mg/g Cream) Contact prescribing physician if questions or concerns fluticasone (fluticasone furoate 50 mcg inhalation powder) fluticasone (fluticasone propionate) multivitamin with minerals (ICaps AREDS 2) predniSONE simvastatin (simvastatin 20 mg Tab) Procedures Performed Cystoscopy (06/24/2021), Cholecystectomy, Colonoscopy, Hip replacement. Discharge Vitals Heart Rate (Peripheral) 61 Respiratory Rate 16 Blood Pressure 130/67 Height 160 cm Height 160.0 cm Weight 99 kg Weight 99.0 kg BMI 38.67 What to do next You Need to Schedule the Following Appointments Follow Up with Jesus WALSH, DOREEN Story, [facility] When: Where: [address] [place] [address] [phone] Medications What How Much When Instructions Unchanged estradiol topical (Estrace 0.1 mg/ g Cream) See instructions Apply pea size amount 3x a week for 2 weeks then 2x a week thereafter Unchanged fluticasone (fluticasone furoate 50 mcg inhalation powder) Inhalation Every 24 hours Contact prescribing physician if questions or concerns Unchanged fluticasone (fluticasone propionate) Inhalation Contact prescribing physician if questions or concerns Unchanged multivitamin with minerals (ICaps AREDS 2) Contact prescribing physician if questions or concerns Unchanged predniSONE By Mouth Every day Contact prescribing physician if questions or concerns Unchanged simvastatin (simvastatin 20 mg Tab) By Mouth Once a day (at bedtime) Contact prescribing physician if questions or concerns Test Results Urnls Dip Stick Auto w/o Microscopy POC 27478 (10/08/2021) Bilirubin Urine Dipstick - Negative Blood Urine Dipstick - Trace-intact Glucose Urine Dipstick - Negative Ketones Urine Dipstick - Negative Leukocytes Urine Dipstick - Negative Nitrite Urine Dipstick - Negative Protein Urine Dipstick - Negative Specific Tucker Urine Dipstick - >=1.030 Urine Appearance Urine Dipstick - Clear Urine Color Urine Dipstick - Yellow Urobilinogen Urine Dipstick - Normal 0.2-1 EU/dl pH Urine Dipstick - 5.5 Allergies Sudafed (Rash) sulfa drugs (Unknown) Problems Ongoing - Any problem that you are currently receiving treatment for. Arthritis BMI 38.0-38.9,adult Cervical polyp High cholesterol Pelvic pain Urethral caruncle Vaginal atrophy Historical - Any problem that you are no longer receiving treatment for. Female cystocele Incomplete bladder emptying Education Materials Abdominal Pain, Adult Many things can cause belly (abdominal) pain. Most times, belly pain is not dangerous. Many cases of belly pain can be watched and treated at home. Sometimes, though, belly pain is serious. Your doctor will try to find the cause of your belly pain. Follow these instructions at home: Medicines ? Take doqx-rdv-fvlbluf and prescription medicines only as told by your doctor. ? Do not take medicines that help you poop (laxatives) unless told by your doctor. General instructions ? Watch your belly pain for any changes. ? Drink enough fluid to keep your pee (urine) pale yellow. ? Keep all follow-up visits as told by your doctor. This is important. Contact a doctor if: ? Your belly pain changes or gets worse. ? You are not hungry, or you lose weight without trying. ? You are having trouble pooping (constipated) or have watery poop (diarrhea) for more than 2?3 days. ? You have pain when you pee or poop. ? Your belly pain wakes you up at night. ? Your pain gets worse with meals, after eating, or with certain foods. ? You are vomiting and cannot keep anything down. ? You have a fever. ? You have blood in your pee. Get help right away if: ? Your pain does not go away as soon as your doctor says it should. ? You cannot stop vomiting. ? Your pain is only in areas of your belly, such as the right side or the left lower part of the belly. ? You have bloody or black poop, or poop that looks like tar. ? You have very bad pain, cramping, or bloating in your belly. ? You have signs of not having enough fluid or water in your body (dehydration), such as: ? Dark pee, very little pee, or no pee. ? Cracked lips. ? Dry mouth. ? Sunken eyes. ? Sleepiness. ? Weakness. ? You have trouble breathing or chest pain. Summary ? Many cases of belly pain can be watched and treated at home. ? Watch your belly pain for any changes. ? Take twmp-axp-mxgnnbe and prescription medicines only as told by your do (more content not included)... Normal [facility] Patient Educationon 10-09-19 Patient Education Gastroenterology Abdominal Pain, Adult Many things can cause belly (abdominal) pain. Most times, belly pain is not dangerous. Many cases of belly pain can be watched and treated at home. Sometimes, though, belly pain is serious. Your doctor will try to find the cause of your belly pain. Follow these instructions at home: Medicines ? Take eykd-mjg-qaadune and prescription medicines only as told by your doctor. ? Do not take medicines that help you poop (laxatives) unless told by your doctor. General instructions ? Watch your belly pain for any changes. ? Drink enough fluid to keep your pee (urine) pale yellow. ? Keep all follow-up visits as told by your doctor. This is important. Contact a doctor if: ? Your belly pain changes or gets worse. ? You are not hungry, or you lose weight without trying. ? You are having trouble pooping (constipated) or have watery poop (diarrhea) for more than 2?3 days. ? You have pain when you pee or poop. ? Your belly pain wakes you up at night. ? Your pain gets worse with meals, after eating, or with certain foods. ? You are vomiting and cannot keep anything down. ? You have a fever. ? You have blood in your pee. Get help right away if: ? Your pain does not go away as soon as your doctor says it should. ? You cannot stop vomiting. ? Your pain is only in areas of your belly, such as the right side or the left lower part of the belly. ? You have bloody or black poop, or poop that looks like tar. ? You have very bad pain, cramping, or bloating in your belly. ? You have signs of not having enough fluid or water in your body (dehydration), such as: ? Dark pee, very little pee, or no pee. ? Cracked lips. ? Dry mouth. ? Sunken eyes. ? Sleepiness. ? Weakness. ? You have trouble breathing or chest pain. Summary ? Many cases of belly pain can be watched and treated at home. ? Watch your belly pain for any changes. ? Take hfph-vta-hxrqseg and prescription medicines only as told by your doctor. ? Contact a doctor if your belly pain changes or gets worse. ? Get help right away if you have very bad pain, cramping, or bloating in your belly. This information is not intended to replace advice given to you by your health care provider. Make sure you discuss any questions you have with your health care provider. Document Released: 09/14/2008 Document Revised: 08/07/2019 Document Reviewed: 08/07/2019 Elsevier Patient Education ? 2020 [employer] [facility] Urology Office/Clinic Noteon 10-08-2021 Urology Office/Clinic Note Chief Complaint 3 month f/u HPI Staff Pt is here for 3 month f/u. Previous dx of urethral caruncle, vaginal atrophy, pelvic pain and cervical polyp. Pt discontinued using the Estradiol cream after using it for about 2-3 weeks due to nausea and vertigo. She was concerned these were side effects from the cream. She states she is doing well at this time. She has not seen her disease management nurse as of yet for the cervical polyp. Dysuria: no Incomplete bladder emptying: rare Hematuria: no Frequency: no Urgency: no Nocturia: 1x Stream: good stream no straining Leaking: no Post void dripping: no Wearing pads/ Depends: no Urge incontinence: no Stress incontinence: no Incontinence without Sensory Awareness: no Abdominal pain: no Flank pain: no Sexual complaints: no History of Present Illness I have reviewed and verified the staff HPI to be accurate for this encounter. Review of Systems PHQ Score Initial Depression Screen Score: 0 ROS - Provider Constitutional: denies weight loss, denies hot flashes. Eyes: denies eye problems. Gastrointestinal: denies nausea, denies vomiting. Cardiovascular: denies chest pain or angina. Integumentary: no dryness Musculoskeletal: denies musculoskeletal symptoms. ENMT: denies otolaryngeal symptoms. Respiratory: no shortness of breath. Heme/Lymph: denies easy bleeding tendency, denies easy bruising tendency. Psychiatric: no confusion, no anxiety. Genitourinary: see HPI Physical Exam Vitals & Measurements HR: 61(Peripheral) RR: 16 BP: 130/67 HT: 160 cm HT: 160.0 cm WT: 99 kg WT: 99.0 kg BMI: 38.67 General Appearance: alert , no acute distress, well nourished, well developed female. Genitourinary: bladder nonpalpable, no flank pain. Assessment/Plan 1. Urethral caruncle (N36.2: Urethral caruncle) Cysto done 06/24/2021. Pt states that she has no urinary sxs at this time. Likely cause of prior urinary sx. Pt discontinued using the Estradiol cream after using it for about 2-3 weeks due to nausea and vertigo. She was concerned these were side effects from the cream. Discussed tx options, pt would like to observe at this time given asx. Will call for any concerns or issues 2. Vaginal atrophy (N95.2: Postmenopausal atrophic vaginitis) Pt discontinued using the Estradiol cream after using it for about 2-3 weeks due to nausea and vertigo. Asx 3. Pelvic pain (R10.2: Pelvic and perineal pain) Pt has no complaints at this time. pt stopped Estradiol. 4. Cervical polyp (N84.1: Polyp of cervix uteri) Noted on vaginoscopy has not seen her disease management nurse as of yet for the cervical polyp. Educated pt that she needs to see her APPLICATION SECURITY ENGINEER to f/u with this. Follow-up With When Contact Information Jesus WALSH, Lorena Morocho, URL, [facility] [address], [place] [address] [phone] Additional Instructions: PRN Patient Education Abdominal Pain, Adult, Wgje-br-[id number] I, Beba Rodriguez, personally scribed for Dr. Lee on 10/08/2021 10:05:52. . Documentation recorded by the scribe, Beba Rodriguez, accurately reflects the services(s) I performed and decisions made by me. Authenticated by Dr. Lee on 10/08/2021 10:13:02. Problem List/Past Medical History Ongoing Arthritis BMI 38.0-38.9,adult Cervical polyp High cholesterol Pelvic pain Urethral caruncle Vaginal atrophy Historical Female cystocele Incomplete bladder emptying Procedure/Surgical History Cystoscopy (06/24/2021), Cholecystectomy, Colonoscopy, Hip replacement. Medications Estrace 0.1 mg/g Cream, See Instructions, 2 refills, Not taking fluticasone furoate 50 mcg inhalation powder, Inhalation, q24hr fluticasone propionate, Inhalation ICaps AREDS 2 predniSONE, Oral, Daily simvastatin 20 mg Tab, Oral, Once a day (at bedtime) Allergies Sudafed (Rash) sulfa drugs (Unknown) Social History Tobacco Never (less than 100 in lifetime) Tobacco Use:. Never Smokeless Tobacco Use:., 06/04/2021 Family History Arthritis: Mother. Migraine: Father. Primary malignant neoplasm of lung: Mother. Immunizations Vaccine Date Status SARS-CoV-2 (COVID-19) Ad26 vaccine 01/2021 Recorded SARS-CoV-2 (COVID-19) Ad26 vaccine 06/2020 Recorded SARS-CoV-2 (COVID-19) Ad26 vaccine 05/2020 Recorded Lab Results Ambulatory Point of Care Results Bilirubin Urine Dipstick: Negative (10/08/21 09:46:00) Blood Urine Dipstick: Trace-intact (10/08/21 09:46:00) Glucose Urine Dipstick: Negative (10/08/21 09:46:00) Ketones Urine Dipstick: Negative (10/08/21 09:46:00) Leukocytes Urine Dipstick: Negative (10/08/21 09:46:00) Nitrite Urine Dipstick: Negative (10/08/21 09:46:00) Protein Urine Dipstick: Negative (10/08/21 09:46:00) Specific Tucker Urine Dipstick: >=1.030 (10/08/21 09:46:00) Urine Appearance Urine Dipstick: Clear (10/08/21 09:46:00) Urine Color Urine Dipstick: Yellow (10/08/21 09:46:00) Urobilinogen Urine Dipstick: Normal 0.2-1 EU/dl (10/08/21 0 (more content not included)... [facility] Comment on above: Result Comment: Elec tronically Signed By: Lorena Lee MD\.br\Date and Time Signed: 10/08/21 10:13 EDT\.br\Electronically Co-Signed By: Beba Rodriguez MA\.br\Date and Time Co-Signed: 10/08/21 10:06 EDT Consent for Procedure/Surger yon 06-24-2021 Consent for Procedure/Surgery [id number] .00CD:127 [facility] Urology Office/Clinic Noteon 06-24-2021 Urology Office/Clinic Note Chief Complaint Cystoscopy HPI Staff Cystoscopy. Abx taken Review of Systems PHQ Score Initial Depression Screen Score: 0 Physical Exam Vitals & Measurements HR: 70(Peripheral) RR: 16 BP: 125/82 HT: 160 cm HT: 160.0 cm WT: 98.9 kg WT: 98.9 kg BMI: 38.63 Procedure Operative Information Anesthesia Type: Local Procedure: Local Cystoscopy Complications: None Surgical risks, benefits, details of the procedure have been explained to the patient. Full informed consent has been obtained. Intraoperative Information Prepped: Patient is brought back to the endoscopy suite. Patient is placed in supine position. Patient prepped in the usual fashion with Betadine solution. 2% Xylocaine Jelly is placed per Urethra. After waiting several minutes, the Cystoscope is introduced. The Urethra is: patent, retracted. Ventral dark mucosa protrusion consistent with caruncle, non tender, not friable. Urethra otherwise normal, no strictures, no lesions or tumors. The Bladder: Normal, Trabeculated: None (0) The Ureteral orifices: Show efflux of clear urine Specimens Removed: None Removal: Cystoscope is removed. The patient tolerated it well. Vaginal exam: Tight introitus, severe vaginal atrophy. Vaginoscopy with various polyps vs cysts overlying cervix, largest 1 cm. Unable to see cervix. No HENRI, no anterior, posterior prolapse. Postoperative Information Patient is discharged home with antibiotic coverage. Follow up arranged. Assessment/Plan 1. Urethral caruncle (N36.2: Urethral caruncle) Likely cause of prior urinary sx. Recommend continued topical estrogen. 3 times a week for 2 more weeks then twice week after for maintenance. If no improvement and remains symptomatic, will discuss excision. 2. Vaginal atrophy (N95.2: Postmenopausal atrophic vaginitis) Prior urinary symptoms have improved now on topical estrogen, currently third week. Continue as above 3. Pelvic pain (R10.2: Pelvic and perineal pain) Improved on topical estrogen. Ordered: Cystourethroscopy 12075 4. Cervical polyp (N84.1: Polyp of cervix uteri) Noted on vaginoscopy today. Recommend follow-up with gynecology for further evaluation. Follow-up With When Contact Information Jesus WALSH, Lorena Morocho, DOREEN, URO In 3 months 09/24/2021 EDT Additional Instructions: Patient Education Cystoscopy Darlin Senior, personally scribed for Dr. Lee on 06/24/2021 09:13:39. . Documentation recorded by the scribe, Darlin Moralez, accurately reflects the services(s) I performed and decisions made by me. Authenticated by Dr. Lee on 06/24/2021 09:23:57. Problem List/Past Medical History Ongoing Arthritis BMI 38.0-38.9,adult Female cystocele High cholesterol Incomplete bladder emptying Pelvic pain Urethral caruncle Vaginal atrophy Historical No qualifying data Procedure/Surgical History Cystoscopy (06/24/2021), Cholecystectomy, Colonoscopy, Hip replacement. Medications Estrace 0.1 mg/g Cream, See Instructions, 2 refills fluticasone furoate 50 mcg inhalation powder, Inhalation, q24hr fluticasone propionate, Inhalation ICaps AREDS 2 Keflex 500 mg Cap, 500 mg= 1 cap(s), Oral, As Directed simvastatin 20 mg Tab, Oral, Once a day (at bedtime) Allergies sulfa drugs (Unknown) Social History Tobacco Never (less than 100 in lifetime) Tobacco Use:. Never Smokeless Tobacco Use:., 06/04/2021 Family History Arthritis: Mother. Migraine: Father. Primary malignant neoplasm of lung: Mother. Immunizations Vaccine Date Status SARS-CoV-2 (COVID-19) Ad26 vaccine 01/2021 Recorded SARS-CoV-2 (COVID-19) Ad26 vaccine 06/2020 Recorded SARS-CoV-2 (COVID-19) Ad26 vaccine 05/2020 Recorded New finding of cervical polyps vs cysts. Does not appear friable however minimally probed. 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 Denies vaginal bleeding or spotting. Pelvic pain improved now on topical estrogen, however given new findings on vaginoscopy, recommend further evaluation with Operator Receptionist. [facility] Comment on above: Result Comment: Elec tronically Signed By: Jesus WALSH, Lorena Randhawa.br\Date and Time Signed: 06/24/21 09:27 EDT [employer] 06-12-2021 Forms [id number] .[id number]:127 [facility] Physician Referralon 022 Physician Referral [id number]:127 [facility] Vital Signs Date Time Vital Sign Value Performing Clinician Lavern bangura 04-24-2022 14:15-0500 Blood Pressure Location Noam NILL [facility] [place] 04-24-2022 14:15-0500 Diastolic blood pressure 76 mm[Hg] Noam NILL [facility] [place] 04-24-2022 14:15-0500 Heart rate 68 /min Noam NILL [facility] [place] 04-24-2022 14:15-0500 Respiratory rate 16 /min Noam NILL [facility] 04-24-2022 14:15-0500 Systolic blood pressure 120 mm[Hg] Noma NILL [facility] 10-08-2021 09:47-0400 Blood Pressure Location Lorena Lue [facility] 10-08-2021 09:47-0400 Diastolic blood pressure 67 mm[Hg] Lorena Lue [facility] 10-08-2021 09:47-0400 Heart rate 61 /min Lorena Lue [facility] 10-08-2021 09:47-0400 Respiratory rate 16 /min Lorena Lue [facility] 10-08-2021 09:47-0400 Systolic blood pressure 130 mm[Hg] Lorena Lue [facility] Encounters Encounter Date Encounter Type Care Provider Facility Start: 07-25-2022 End: 07-25-[address] KERRIE HAMMER . Facility:[facility] Start: 07-24-2022 End: 07-25-[address] KERRIE HAMMER . Facility:[facility] Start: 05-27-2022 End: 05-28-2022 ambulatory Noam LEDESMA Facility:[id number] Start: 04-24-2022 End: 04-25-2022 ambulatory Kerrie Hammer Facility:[facility] Start: 04-24-2022 End: 04-24-2022 Patient encounter procedure Noam LEDESMA [facility] Start: 02-25-2022 End: 02-26-[address] KERRIE HAMMER . Facility:[facility] Start: 02-13-2022 ambulatory Kerrie Hammer Facility:[facility] Start: 12-02-2021 End: 12-03-[address] KERRIE HAMMER . Facility: Start: 10-08-2021 End: 10-09-2021 ambulatory Lorena Lee Facility:[facility] Start: 10-08-2021 End: 10-08-2021 Patient encounter procedure [facility] Start: 10-03-2021 ambulatory Lorena Lee Facility:[facility] Start: 09-26-2021 ambulatory Lorena Lee Facility:[facility] Start: 06-24-2021 ambulatory Kerrie Hammer Facility:[facility] Start: 06-24-2021 End: 06-25-2021 ambulatory Lorena MSuzy Umanae Facility:[facility] Start: 06-23-2021 ambulatory Kerrie Hammer Facility:[facility] Procedures Date Procedure Procedure Detail Performing Clinician Start: 06-24-2021 Cystoscopy Lorena Lee Start: 10-12-2007 Colonoscopy Noam WOLF Cholecystectomy Lorena Lee Colonoscopy Lorena Lee Decompression of med greta nerve Noam LEDESMA Hammer toe operation Noam LEDESMA History of nasal sin us surgery Noam LEDESMA Insertion of hip prosthesis Lorena Lee Repair of hip Noam LEDESMA Immunizations Immunization Date Immunization Notes Care Provider Fa cili 01-08-2022 SARS-CoV-2 (COVID-19 ) mRNAMUL.[id number] Noam LEDESMA [facility] [place] 12-12-2021 influenza virus vaccine, unspecified formulation Noam LEDESMA [facility] 07-22-2021 SARS-CoV-2 (COVID-19 ) mRNA-1273 vaccine Noam LEDESMA [facility] [place] 02-12-2021 SARS-CoV-2 (COVID-19 ) mRNA-1273 vaccine Noam LEDESMA [facility] [place] 01-10-2021 SARS-CoV-2 (COVID-19 ) Ad26 vaccine, recombinant Lorena Lue [facility] 06-10-2020 SARS-CoV-2 (COVID-19 ) Ad26 vaccine, recombinant Lorena Lue [facility] 05-13-2020 SARS-CoV-2 (COVID-19 ) Ad26 vaccine, recombinant Lorena Lue [facility] Payers Date Payer Category Payer Medicare [id number] 1961 Unknown [id number] 1950 Unknown [id number] 2.16.8 [id number] 1950 Unknown [id number] 2.16.8 [id number] 1948 Unknown [id number] 2.16.8 [id number] 1948 Unknown [id number] 2.16.8 [id number] 1948 Unknown [id number] 2.16.8 [id number] 1948 Unknown [id number] 2.16.8 [id number] 1948 Unknown [id number] 2.16.8 [id number] 1948 Unknown [id number] 2.16.8 [id number] 1948 Unknown [id number] 2.16.84 [id number] 1948 Unknown [id number] 2.16.84 [id number] 1948 Unknown [id number] 2.16.84 [id number] 1948 Unknown [id number] 2.16.84 [id number] 1948 Unknown [id number] 2.16.84 [id number] Medicare [id number] Social History Date Type Detail Facility Start: 06-04-2021 End: 04-24-2022 Tobacco smoking status Never smoked tobacco (finding) [facility] Tobacco smoking status Never [facility] Sex Assigned At Female [facility] Functional Status Date Assessment Result Facility 04-24-2022 Functional Status N/A [facility] [place] 10-08-2021 Functional Status N/A [facility] Clinical Note 05-27-2022 Note Date & Type Note Facility 05-27-2022 Note OPERATIVE NOTE OPERATION DATE: 05/27/2022 PREOPERATIVE DIAGNOSIS: Colorectal screening. POSTOPERATIVE DIAGNOSIS: Severe diverticulosis, particularly in the descending and sigmoid colon, but also some in the right colon. PROCEDURE: Colonoscopy to cecum. SURGEON: Noam Ledesma M.D. ANESTHESIA: Monitored anesthesia care. ESTIMATED BLOOD LOSS: Zero. INDICATIONS AND CONSENT: Patient is a 71-year-old female presents for colorectal screening. Indications, risks, benefits, alternatives of proceeding with colonoscopy were explained extensively to the patient, including the risks of bleeding, colon perforation or anesthetic complications. All of her questions were answered. Informed consent was obtained. PROCEDURE: Patient brought to the operating room, placed in the left lateral decubitus position. Monitored anesthesia care was provided. Rectal exam was performed which showed no masses or blood. The scope was inserted into the anal canal. Under direct visualization was advanced. With the aid of abdominal compression and positional changes, it was able to be advanced to the cecum where cecal markings were clearly identified. There was a good prep. Upon withdrawal of the scope, mucosal surfaces were carefully examined. There were no mass lesions or polyps. No inflammatory changes or ulcerations. There was severe diverticulosis in the descending and sigmoid colon, as well as some scattered diverticula in the right colon without inflammatory changes or scarring. There was redundancy of the colon. In the rectum, there was no significant hemorrhoidal disease. There were some prominent rectal veins. The scope was then withdrawn. Patient tolerated procedure well, was sent to recovery room in good condition. CC: Kerrie Hammer M.D. [facility] Clinical Note 04-24-2022 Note Date & Type Note Facility 04-24-2022 Note Chief Complaint consultation for colonoscopy HPI Staff 71 year old female presents on consultation from Dr. Hammer for screening colonoscopy. Denies abdominal or rectal pain. No rectal bleeding or change in bowel habits. Denies nausea or vomiting. No unexplained weight loss. Last colonoscopy completed 10/2007 with internal hemorrhoid. No known family history of colon cancer. History of Present Illness 71 yo female with h/o hyperlipidemia, arthritis, referred for colorectal screening; denies change in bms or blood in stools; no abdominal complaints; denies asa or NSAID use, no SBE prophylaxis; abdominal operations significant for cholecystectomy, last colonoscopy 2007, wnl; no fmhx of GI malignancy or IBD; no tobacco use. Review of Systems PHQ Score Initial Depression Screen Score: 0 ROS - Provider Constitutional: no fever, no sweats, no weight loss. Eyes: yes glasses, no blurred vision, no visual loss. ENMT: no dentures, no hoarseness, no swallowing difficulties, no hearing loss, no ear infection(s), no nose bleeds. Cardiovascular: normal blood pressure, no chest pain, regular heartbeat, no heart murmur. Respiratory: no shortness of breath, no cough, no asthma, no wheezing. Gastrointestinal: no nausea, no vomiting, no diarrhea, no constipation, no blood in stool, no change in bowel habits, no abdominal pain, no hepatitis. Genitourinary: no kidney stones, no urine infection, no dysuria. Musculoskeletal: no pain, no weakness. Skin: no changing moles, no rash, no skin lumps. Neurologic: no seizures, no epilepsy, no headache. Psychiatric: no emotional or psychiatric problem. Heme/Lymph: no bleeding problems, no anemia, no blood clots, no transfusions. Allergy/Immunologic: no swollen lymph nodes/glands, no IV drug abuse. Other: Additional ROS info: Except as noted in the above Review of Systems and in the History of Present Illness, all other systems have been reviewed and are negative or noncontributory. Physical Exam Vitals & Measurements HR: 68(Peripheral) RR: 16 BP: 120/76 HT: 64 in HT: 162.5 cm WT: 107 kg WT: 235.4 lb BMI: 40.52 HEENT: normal conjunctiva, sclera clear, no scleral icterus, EOM intact, PERRLA, oral mucosa moist without lesions. Neck: trachea midline, no mass, symmetric, no thyromegaly or nodules, no adenopathy Respiratory: lungs CTA, respirations non labored. Cardiovascular: regular rate and rhythm, no murmur, no pedal edema or varicosities. Gastrointestinal: soft, non distended, no tenderness, no masses, no palpable hernias, diastasis recti no, no hepatosplenomegaly; normal bs Lymphatic: no cervical adenopathy, Musculoskeletal: normal gait, digits and nails without infection, nodes, cyanosis, clubbing. Skin: no rashes, no lesions, no ulcers, no subcutaneous nodules, induration. Psychiatric/Neuro: oriented to time, place, person, judgement normal, affect appropriate for age, insight intact, no focal deficits. Tests: review of old records completed, Discussed surgical options, risks, and possible complications with patient. Assessment/Plan 1. Screening for malignant neoplasm of colon (Z12.11: Encounter for screening for malignant neoplasm of colon) plan colonoscopy under anesthesia, informed consent obtained. Follow-up No qualifying data available Problem List/Past Medical History Ongoing Arthritis BMI 40.0-44.9, adult Bronchial asthma Cervical polyp Chronic venous insufficiency of lower extremity Dependent edema Hyperlipidemia Pure hypercholesterolemia Screening for malignant neoplasm of colon Seasonal allergic rhinitis Urethral caruncle Vaginal atrophy Historical Female cystocele Incomplete bladder emptying Pelvic pain Procedure/Surgical History Cystoscopy (06/24/2021), Colonoscopy (10/12/2007), Arthroplasty of the hip, Carpal tunnel release, Carpal tunnel release, Cholecystectomy, History of nasal sinus surgery, Repair of hammer toe. Medications cetirizine 10 mg Tab, 10 mg= 1 tab(s), Oral, Bedtime Flonase 0.05 mg/inh [place], 1 spray(s), Nasal, BID ICaps AREDS 2 simvastatin 20 mg Tab, Oral, Once a day (at bedtime) Allergies Sudafed (Rash) sulfa drugs (Rash) Social History Alcohol - Denies Alcohol Use, 04/24/2022 Substance Abuse - Denies Substance Abuse, 04/24/2022 Tobacco Never (less than 100 in lifetime) Tobacco Use:. Never Smokeless Tobacco Use:., 04/24/2022 Family History Arthritis: Mother. Migraine: Father. Primary malignant neoplasm of lung: Mother. Immunizations Vaccine Date Status SARS-CoV-2 (COVID-19) mRNAMUL.ORD![id number] 01/08/2022 Recorded influenza virus vaccine, inactivated 12/12/2021 Recorded SARS-CoV-2 (COVID-19) mRNA-1273 vaccine 07/22/2021 Recorded SARS-CoV-2 (COVID-19) mRNA-1273 vaccine 02/12/2021 Recorded SARS-CoV-2 (COVID-19) Ad26 vaccine 01/2021 Recorded SARS-CoV-2 (COVID-19) Ad26 vaccine 06/2020 Recorded SARS-CoV-2 (COVID-19) Ad26 vaccine 05/2020 Recorded [facility] Comment on above: Result Comment: Elec tronically Signed By: CORAL WALSH, Noam Shen\Date and Time Signed: 04/24/22 14:42 EST Hospital Discharge instructions 10-08-2021 Note Date & Type Note Facility 10-08-2021 Hospital Discharg e instructions Patient Education 10/08/2021 10:00:26 Abdominal Pain, Adult, [id number] Abdominal Pain, Adult Many things can cause belly (abdominal) pain. Most times, belly pain is not dangerous. Many cases of belly pain can be watched and treated at home. Sometimes, though, belly pain is serious. Your doctor will try to find the cause of your belly pain. Follow these instructions at home: Medicines Take rvyx-dvq-bwakatu and prescription medicines only as told by your doctor. Do not take medicines that help you poop (laxatives) unless told by your doctor. General instructions Watch your belly pain for any changes. Drink enough fluid to keep your pee (urine) pale yellow. Keep all follow-up visits as told by your doctor. This is important. Contact a doctor if: Your belly pain changes or gets worse. You are not hungry, or you lose weight without trying. You are having trouble pooping (constipated) or have watery poop (diarrhea) for more than 2 3 days. You have pain when you pee or poop. Your belly pain wakes you up at night. Your pain gets worse with meals, after eating, or with certain foods. You are vomiting and cannot keep anything down. You have a fever. You have blood in your pee. Get help right away if: Your pain does not go away as soon as your doctor says it should. You cannot stop vomiting. Your pain is only in areas of your belly, such as the right side or the left lower part of the belly. You have bloody or black poop, or poop that looks like tar. You have very bad pain, cramping, or bloating in your belly. You have signs of not having enough fluid or water in your body (dehydration), such as: ?Dark pee, very little pee, or no pee. ?Cracked lips. ?Dry mouth. ?Sunken eyes. ?Sleepiness. ?Weakness. You have trouble breathing or chest pain. Summary Many cases of belly pain can be watched and treated at home. Watch your belly pain for any changes. Take elpg-frs-smqpzof and prescription medicines only as told by your doctor. Contact a doctor if your belly pain changes or gets worse. Get help right away if you have very bad pain, cramping, or bloating in your belly. This information is not intended to replace advice given to you by your health care provider. Make sure you discuss any questions you have with your health care provider. Document Released: 09/14/2008 Document Revised: 08/07/2019 Document Reviewed: 08/07/2019 [employer] Patient Education 2019 [employer]. Follow Up Care 09/04/2021 10:44:24 With:Jesus WALSH, DOREEN Story, URO Address: [address] [place] [address]- [phone] When: Unknown [facility] Clinical Note 06-24-2021 Note Date & Type Note Facility 06-24-2021 Note Urology Cystoscopy Cystoscopy is a procedure that is used to help diagnose and sometimes treat conditions that affect the lower urinary tract. The lower urinary tract includes the bladder and the urethra. The urethra is the tube that drains urine from the bladder. Cystoscopy is done using a thin, tube-shaped instrument with a light and camera at the end (cystoscope). The cystoscope may be hard or flexible, depending on the goal of the procedure. The cystoscope is inserted through the urethra, into the bladder. Cystoscopy may be recommended if you have: ? Urinary tract infections that keep coming back. ? Blood in the urine (hematuria). ? An inability to control when you urinate (urinary incontinence) or an overactive bladder. ? Unusual cells found in a urine sample. ? A blockage in the urethra, such as a urinary stone. ? Painful urination. ? An abnormality in the bladder found during an intravenous pyelogram (IVP) or CT scan. Cystoscopy may also be done to remove a sample of tissue to be examined under a microscope (biopsy). Tell a health care provider about: ? Any allergies you have. ? All medicines you are taking, including vitamins, herbs, eye drops, creams, and djel-jvu-uqjcsvy medicines. ? Any problems you or family members have had with anesthetic medicines. ? Any blood disorders you have. ? Any surgeries you have had. ? Any medical conditions you have. ? Whether you are or may be . What are the risks? Generally, this is a safe procedure. However, problems may occur, including: ? Infection. ? Bleeding. ? Allergic reactions to medicines. ? Damage to other structures or organs. What happens before the procedure? ? Ask your health care provider about: ? Changing or stopping your regular medicines. This is especially important if you are taking diabetes medicines or blood thinners. ? Taking medicines such as aspirin and ibuprofen. These medicines can thin your blood. Do not take these medicines unless your health care provider tells you to take them. ? Taking elqe-jjv-dhkkjwc medicines, vitamins, herbs, and supplements. ? Follow instructions from your health care provider about eating or drinking restrictions. ? Ask your health care provider what steps will be taken to help prevent infection. These may include: ? Washing skin with a germ-killing soap. ? Taking antibiotic medicine. ? You may have an exam or testing, such as: ? X-rays of the bladder, urethra, or kidneys. ? Urine tests to check for signs of infection. ? Plan to have someone take you home from the hospital or clinic. What happens during the procedure? ? You will be given one or more of the following: ? A medicine to help you relax (sedative). ? A medicine to numb the area (local anesthetic). ? The area around the opening of your urethra will be cleaned. ? The cystoscope will be passed through your urethra into your bladder. ? Germ-free (sterile) fluid will flow through the cystoscope to fill your bladder. The fluid will stretch your bladder so that your health care provider can clearly examine your bladder benjamin. ? Your doctor will look at the urethra and bladder. Your doctor may take a biopsy or remove stones. ? The cystoscope will be removed, and your bladder will be emptied. The procedure may vary among health care providers and hospitals. What can I expect after the procedure? After the procedure, it is common to have: ? Some soreness or pain in your abdomen and urethra. ? Urinary symptoms. These include: ? Mild pain or burning when you urinate. Pain should stop within a few minutes after you urinate. This may last for up to 1 week. ? A small amount of blood in your urine for several days. ? Feeling like you need to urinate but producing only a small amount of urine. Follow these instructions at home: Medicines ? Take [id number] and prescription medicines only as told by your health care provider. ? If you were prescribed an antibiotic medicine, take it as told by your health care provider. Do not stop taking the antibiotic even if you start to feel better. General instructions ? Return to your normal activities as told by your health care provider. Ask your health care provider what activities are safe for you. ? Do not drive for 24 hours if you were given a sedative during your procedure. ? Watch for any blood in your urine. If the amount of blood in your urine increases, call your health care provider. ? Follow instructions from your health care provider about eating or drinking restrictions. ? If a tissue sample was removed for testing (biopsy) during your procedure, it is up to you to get your test results. Ask your health care provider, or the department that is doing the test, when your results will be ready. ? Drink enough fluid to keep your urine pale yellow. ? Keep all follow-up visits as told by your health care provider. This is importa (more content not included)... [facility] Evaluation + Plan note Note Date & Type Note Facility Evaluation + Plan note No data available for this section [facility] Hospital Discharge instructions Note Date & Type Note Facility Hospital Discharge instructions No data available for this section [facility] [place] [facility] note Note Date & Type Note Facility Progress note No data available for this section [facility] Summary Purpose Family History No Family History Records FoundNo Family History Records FoundNo Family History Records Found Advance Directives No Advanced Directives Records FoundNo Advanced Directives Records FoundNo Advanced Directives Records Found Additional Source Comments Care Team (unrecognized sect ion and content) Personnel Name: Kerrie Hammer MD Address: [address] [place] [address] Personnel Name: Kerrie Hammer MD Address: Address: [address] [place] [address] INFORMATION SOURCE (unrecogn ized section and content) DATE CREATED AUTHOR 10/11/[address] [facility] dical Specialist DATE CREATED AUTHOR AUTHOR'S ORGANIZ ATION 06/05/2022 [facility] DATE CREATED AUTHOR AUTHOR'S ORGANIZ ATION 07/30/2022 [facility] FOR RECORDS PERTAINING TO PATIENTS WHO ARE OR HAVE BEEN ENROLLED IN A CHEMICAL DEPENDENCY/SUBSTANCEABUSE PROGRAM, SOME INFORMATION MAY BE OMITTED. This clinical summary was aggregated from multiple sources. Caution should be exercised in using it in the provision of clinical care. This summary normalizes information from multiple sources, and as a consequence, information in this document may materially change the coding, format and clinical context of patient data. In addition, data may be omitted in some cases. CLINICAL DECISIONS SHOULD BE BASED ON THE PRIMARY CLINICAL RECORDS. [facility] provides no warranty or guarantee of the accuracy or completeness of information in this document.
== END 2023-08-06 09:19 | disposition home or self-care (01) ==
LOC: MAMMO 09:18
PROVIDERS: PCP Family Medicine; Visit Provider Family Medicine
DX: Z12.31 Encounter for screening mammogram for malignant neoplasm of breast (principal); Z80.0 Family history of malignant neoplasm of digestive organs; Z80.1 Family history of malignant neoplasm of trachea, bronchus and lung
CPT/HCPCS: 77063; 77067

== ENCOUNTER 2024-02-18 07:20 | Outpatient (OUT) | payer MEDICARE, SELFPAY ==
--- OUTSIDE RECORDS SUMMARY | 2024-02-18 07:27 | XMS_ITS | CCD ---
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 Role Phone Kerrie Hammer Primary Care Physician Kerrie Hammer Referring Unavailable NILLNoam Attending Unavailable NILL, Noam Peter Attending Unavailable LueLorena Attending Unavailable LueLorena Attending Unavailable LueLorena Attending Unavailable LuLorena huerta Attending Unavailable HOY ., DR SY Admitting [...] Unavailable HOY ., DR SY Consulting Unavailable WAYNOKA, DR KENN Loyd Consulting Unavailable HOY ., DR SY Primary Care Unavailable HOY ., DR SY Admitting Unavailable HOY ., DR SY Attending Unavailable HOY ., DR SY Consulting Unavailable Allergies Allergy Classification Reported Allergen(s) Allergy Type Date of Onset Reaction(s) Facility (3 sources) Pseudoephedrine; Translations: [pseudoephedrine] Drug Allergy Eruption (morphologic abnormality) [facility] (3 sources) Sulfonamides (Antibiotic); Translations: [sulfa drugs] Drug allergy Unknown (qualifier value), Eruption of skin (disorder) [facility] (1 source) Pseudoephedrine Drug Allergy [facility] (1 source) Sulfonamides (Antibiotic) Drug allergy (disorder) [facility] Medications Current Medications Medication Drug Class(es) [...] sources) Corticosteroid Start: 04-08-2022 Flonase 0.05 mg/inh Outing 1 spray(s), Nasal, BID, Refill(s) 0 Start [...] 06-04-2021 Chronic Other aftercare (1 source) 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 Bhumi Lewis BNPon 07-24-2022 Natriuretic peptide B (Bld) [Mass/Vol] 381.0 pg/mL Normal <=900.0 [facility] Comment on above: Performed By: #### T SH, LIVER, T7, BNP, BMP #### [facility] [address] [place] [address] Dr. Bhumi Lewis CBC AUTO DIFFon 07-24-2022 BASO # 0.0 103/ul Normal 0.0-0.1 [facility] Comment on above: Performed By: #### C BC #### [facility] [address] [place] [address] Dr. Bhumi Lewis Basophils/100 WBC (Bld) 0.4 % Normal 0.2-2.0 [facility] Comment on above: Performed By: #### C BC #### [facility] [address] [place] [address] Dr. Bhumi Lewis EO # 0.1 103/ul Normal 0.0-0.7 [facility] Comment on above: Performed By: #### C BC #### [facility] [address] [place] [address] Dr. Bhumi Lewis Eosinophils/100 WBC (Bld) 2.7 % Normal 0.9-7.0 [facility] Comment on above: Performed By: #### C BC #### [facility] [address] [place] [address] Dr. Bhumi Lewis Erythrocyte distribution width (RBC) [Ratio] 13.1 % Normal 11.0-15.0 [facility] Comment on above: Performed By: #### C BC #### [facility] [address] [place] [address] Dr. Bhumi Lewis Hematocrit (Bld) [Volume fraction] 40.0 % Normal 36.0-48.0 [facility] Comment on above: Performed By: #### C BC #### [facility] [address] [place] [address] Dr. Bhumi Lewis Hemoglobin (Bld) [Mass/Vol] 13.2 g/dL Normal 12.0-16.0 [facility] Comment on above: Performed By: #### C BC #### [facility] [address] [place] [address] Dr. Bhumi Lewis IG # 0.02 10e3/ul Normal 0.00-0.03 [facility] Comment on above: Performed By: #### C BC #### [facility] [address] [place] [address] Dr. Bhumi Lewis IG % 0.4 % Normal 0.0-0.5 [facility] Comment on above: Performed By: #### C BC #### [facility] [address] [place] [address] Dr. Bhumi Lewis LYMPH # 1.4 103/ul Normal 1.2-3.8 [facility] Comment on above: Performed By: #### C BC #### [facility] [address] [place] [address] Dr. Bhumi Lewis Lymphocytes/100 WBC (Bld) 30.3 % Normal 20.5-60.0 [facility] Comment on above: Performed By: #### C BC #### [facility] [address] [place] [address] Dr. Bhumi Lewis MANUAL DIFF REQ NO Normal [facility] Comment on above: Performed By: #### C BC #### [facility] [address] [place] [address] Dr. Bhumi Lewis MCH (RBC) [Entitic mass] 31.1 pg Normal 26.7-34.0 [facility] Comment on above: Performed By: #### C BC #### [facility] [address] [place] [address] Dr. Bhumi Lewis MCHC (RBC) [Mass/Vol] 33.0 g/dL Normal 29.9-35.2 [facility] Comment on above: Performed By: #### C BC #### [facility] [address] [place] [address] Dr. Bhumi Lewis MCV (RBC) [Entitic vol] 94.3 fL Normal 81.0-99.0 [facility] Comment on above: Performed By: #### C BC #### [facility] [address] [place] [address] Dr. Bhumi Lewis MONO # 0.4 103/ul Normal 0.3-0.8 [facility] Comment on above: Performed By: #### C BC #### [facility] [address] [place] [address] Dr. Bhumi Lewis Monocytes/100 WBC (Bld) 9.3 % Normal 1.7-12.0 [facility] Comment on above: Performed By: #### C BC #### [facility] [address] [place] [address] Dr. Bhumi Lewis NEUT # 2.6 103/ul Normal 1.4-6.5 [facility] Comment on above: Performed By: #### C BC #### [facility] [address] [place] [address] Dr. Bhumi Lewis Neutrophils/100 WBC (Bld) 56.9 % Normal 43.0-75.0 [facility] Comment on above: Performed By: #### C BC #### [facility] [address] [place] [address] Dr. Bhumi Lewis Platelet mean volume (Bld) [Entitic vol] 9.2 fL Critically low 9.5-13.5 [facility] Comment on above: Performed By: #### C BC #### [facility] [address] [place] [address] Dr. Bhumi Lewis PLT 249 103/ul Normal 150-450 [facility] Comment on above: Performed By: #### C BC #### [facility] [address] [place] [address] Dr. Bhumi Lewis RBC 4.24 106/ul Normal 4.20-5.40 [facility] Comment on above: Performed By: #### C BC #### [facility] [address] [place] [address] Dr. Bhumi Lewis WBC 4.5 103/ul Normal 4.0-11.0 [facility] Comment on above: Performed By: #### C BC #### [facility] [address] [place] [address] Dr. Bhumi Lewis FREE THYROXINE INDEX T7on FTI 2.18 Normal 1.30-4.50 [facility] Comment on above: Performed By: #### T SH, LIVER, T7, BNP, BMP #### [facility] [address] [place] [address] Dr. Bhumi Lewis T3U 33.0 % Normal 30.0-39.0 [facility] Comment on above: Performed By: #### T SH, LIVER, T7, BNP, BMP #### [facility] [address] [place] [address] Dr. Bhumi Lewis T4 [Mass/Vol] 6.60 ug/dL Normal 4.80-13.90 [facility] Comment on above: Performed By: #### T SH, LIVER, T7, BNP, BMP #### [facility] [address] [place] [address] Dr. Bhumi Lewis LIVER PROFILEon 07-24-2022 Albumin [Mass/Vol] 3.4 g/dL Normal 3.4-5.0 [facility] Comment on above: Performed By: #### T SH, LIVER, T7, BNP, BMP #### [facility] [address] [place] [address] Dr. Bhumi Lewis Albumin/Globulin [Mass ratio] 0.9 {ratio} Normal [facility] Comment on above: Performed By: #### T SH, LIVER, T7, BNP, BMP #### [facility] [address] [place] [address] Dr. Bhumi Lewis ALP [Catalytic activity/Vol] 66 U/L Normal 46-116 [facility] Comment on above: Performed By: #### T SH, LIVER, T7, BNP, BMP #### [facility] [address] [place] [address] Dr. Bhumi Lewis ALT [Catalytic activity/Vol] 26 U/L Normal 14-59 [facility] Comment on above: Performed By: #### T SH, LIVER, T7, BNP, BMP #### [facility] [address] [place] [address] Dr. Bhumi Lewis AST [Catalytic activity/Vol] 21 U/L Normal 15-37 [facility] Comment on above: Performed By: #### T SH, LIVER, T7, BNP, BMP #### [facility] [address] [address] [address] Bhumi Lewis BILI, CONJUGATED 0.1 mg/dL Normal 0.0-0.2 [facility] Comment on above: Performed By: #### T SH, LIVER, T7, BNP, BMP #### [facility] [address] [address] [address] Bhumi Lewis Bilirubin [Mass/Vol] 0.2 mg/dL Normal 0.2-1.0 [facility] Comment on above: Performed By: #### T SH, LIVER, T7, BNP, BMP #### [facility] [address] [place] [address] Dr. Bhumi Lewis Globulin (S) [Mass/Vol] 4.0 g/dL Normal [facility] Comment on above: Performed By: #### T SH, LIVER, T7, BNP, BMP #### [facility] [address] [place] [address] Dr. Bhumi Lewis Protein [Mass/Vol] 7.4 g/dL Normal 6.4-8.2 [facility] Comment on above: Performed By: #### T SH, LIVER, T7, BNP, BMP #### [facility] [address] [place] [address] Dr. Bhumi Lewis MG MAMM SCREEN 3D SANTANA CADon 07-24-2022 MG MAMM SCREEN 3D SANTANA CAD Patient: MAGALI ALDRICH Exam Date: 07/24/2022 : 1950 Gender:F Ordering : DR KERRIE HAMMER . Admission #: [id number] Family : Order #: [id number] CLICK HERE TO VIEW EXAM RADIOLOGY REPORT [...] colon cancer at age 88. LOCATION: [facility] BREAST COMPOSITION: Almost entirely fatty. FINDINGS: DIAGNOSTIC [...] MD on 07/27/2022 at 09:52 Normal [facility] PROF CHEM 8 (BAS METB)on Anion gap [Moles/Vol] 15.0 mmol/L Normal [facility] Comment on above: Performed By: #### T SH, LIVER, T7, BNP, BMP #### [facility] [address] [place] [address] Dr. Bhumi Lewis Calcium [Mass/Vol] 9.0 mg/dL Normal 8.5-10.1 [facility] Comment on above: Performed By: #### T SH, LIVER, T7, BNP, BMP #### [facility] [address] [place] [address] Dr. Bhumi Lewis Chloride [Moles/Vol] 107 mmol/L Normal 98-107 [facility] Comment on above: Performed By: #### T SH, LIVER, T7, BNP, BMP #### [facility] [address] [place] [address] Dr. Bhumi Lewis CO2 [Moles/Vol] 26.7 mmol/L Normal 21.0-32.0 [facility] Comment on above: Performed By: #### T SH, LIVER, T7, BNP, BMP #### [facility] [address] [place] [address] Dr. Bhumi Lewis Creatinine [Mass/Vol] 1.01 mg/dL Normal 0.55-1.02 [facility] Comment on above: Performed By: #### T SH, LIVER, T7, BNP, BMP #### [facility] [address] [address] [address] Bhumi Lewis EGFR-AF ANGOLAN >60 Normal >=60 [facility] Comment on above: Performed By: #### T SH, LIVER, T7, BNP, BMP #### [facility] [address] [address] [address] Bhumi Lewis EGFR-NON AF ANGOLAN 54 mL/min/1.73m2 Critically low >=60 [facility] Comment on above: Performed By: #### T SH, LIVER, T7, BNP, BMP #### [facility] [address] [address] [address] Bhumi Lewis Glucose [Mass/Vol] 100 mg/dL Normal 74-106 [facility] Comment on above: Performed By: #### T SH, LIVER, T7, BNP, BMP #### [facility] [address] [place] [address] Dr. Bhumi Lewis Potassium [Moles/Vol] 4.7 mmol/L Normal 3.5-5.1 [facility] Comment on above: Performed By: #### T SH, LIVER, T7, BNP, BMP #### [facility] [address] [place] [address] Dr. Bhumi Lewis Sodium [Moles/Vol] 144 mmol/L Normal 136-145 [facility] Comment on above: Performed By: #### T SH, LIVER, T7, BNP, BMP #### [facility] [address] [place] [address] Dr. Bhumi Lewis Urea nitrogen [Mass/Vol] 22.0 mg/dL Critically high 7.0-18.0 [facility] Comment on above: Performed By: #### T SH, LIVER, T7, BNP, BMP #### [facility] [address] [place] [address] Dr. Bhumi Lewis Urea nitrogen/Creatinine [Mass ratio] 21.8 mg/mg Normal [facility] Comment on above: Performed By: #### T SH, LIVER, T7, BNP, BMP #### [facility] [address] [place] [address] Dr. Bhumi Lewis TSHon 07-24-2022 TSH 2.303 uIU/mL Normal 0.358-3.740 [facility] Comment on above: Performed By: #### T SH, LIVER, T7, BNP, BMP #### [facility] [address] [address] [address] Bhumi Lewis Reminderson 05-29-2022 Reminders - From: Hien White LPN To: GSN - Clinical; Sent: 05/29/2022 13:21:17 EST Show up: 04/26/2032 07:00:00 EST Subject: colonoscopy recall Due Date/Time: 05/27/2032 07:00:00 EST Reminder/Recall Patient is due for screening colonoscopy 05/27/2032. Normal [facility] Outside Colonoscopyon 2022 Outside Colonoscopy [id number] .00CD:127 Normal [facility] Consent for Procedure/Surger yon 04-27-2022 Consent for Procedure/Surgery [id number] .00CD:127 Normal [facility] XR DEXA BONE DENSITYon 02-25 XR DEXA [...] by: RUTH CARTER Date: 2022-02-25 08:56 Normal [facility] Physician Referralon 022 Physician Referral [id number] .00CD:127 Normal [facility] INSULINon 12-03-2021 Insulin 10.4 uIU/mL Normal 2.6-24.9 [facility] Comment on above: Performed By: #### I NSULIN ####[facility] [address] [place], [place] [address]PrDr. Bhumi Lewis T4, T3U, FTI LABCORPon 12-03 Free Thyroxine Index 1.4 Normal 1.2-4.9 [facility] Comment on above: Performed By: #### T HYLC #### [facility] [address] [address] [address] Bhumi Lewis T3 Uptake 23 % Critically low 24-39 [facility] Comment on above: Performed By: #### T HYLC #### [facility] [address] [address] [address] Bhumi Lewis T4 [Mass/Vol] 6.2 ug/dL Normal 4.5-12.0 [facility] Comment on above: Performed By: #### T HYLC #### [facility] [address] [address] [address] Bhumi Lewis VIT D 25-OH LABCORPon 2021 Vitamin D, 25-Hydroxy 34.6 ng/mL Normal 30.0-100.0 [facility] Comment on above: Result Comment: Romy min D deficiency has been defined by the [place] [employer] and an Endocrine Society practice guideline as a level of serum 25-OH vitamin D less than 20 ng/mL (1,2). The Endocrine Society went on to further define vitamin D insufficiency as a level between 21 and 29 ng/mL (2). 1. IOM ([place] [employer]). 2010. Dietary reference intakes for calcium and D. [place]: The National Academies Press. 2. Elizabeth MF, [place], Yumi JAIMES, et al. Evaluation, treatment, and prevention of vitamin D deficiency: an Endocrine Society clinical practice guideline. JCEM. 2010; 96(7):1911-30. Performed By: #### V ITADLC ####[facility] [address] [address]Dr. Bhumi Lewis BNPon 12-02-2021 Natriuretic peptide B (Bld) [Mass/Vol] 225.0 pg/mL Normal <=900.0 [facility] Comment on above: Performed By: #### T SH, BNP, CMP, LIPID ####[facility] [address] [place], [place] [address]Dr. Bhumi Lewis CBC AUTO DIFFon 12-02-2021 BASO # 0.0 103/ul Normal 0.0-0.1 [facility] Comment on above: Performed By: #### C BC ####[facility] [address] [place], [place] [address]Dr. Kortneynanette Lewis Basophils/100 WBC (Bld) 0.2 % Normal 0.2-2.0 [facility] Comment on above: Performed By: #### C BC ####[facility] [address] [place], [place] [address]Dr. Bhumi Lewis EO # 0.1 103/ul Normal 0.0-0.7 [facility] Comment on above: Performed By: #### C BC ####[facility] [address] [place], [place] [address]Dr. Bhumi Joshua Eosinophils/100 WBC (Bld) 2.9 % Normal 0.9-7.0 [facility] Comment on above: Performed By: #### C BC ####[facility] [address] [place], [place] [address]Dr. Bhumi Lewis Erythrocyte distribution width (RBC) [Ratio] 13.2 % Normal 11.0-15.0 [facility] Comment on above: Performed By: #### C BC ####[facility] [address] [place], [place] [address]Dr. Bhumi Joshua Hematocrit (Bld) [Volume fraction] 41.6 % Normal 36.0-48.0 [facility] Comment on above: Performed By: #### C BC ####[facility] [address] [id number]. Bhumi Lewis Hemoglobin (Bld) [Mass/Vol] 13.4 g/dL Normal 12.0-16.0 [facility] Comment on above: Performed By: #### C BC ####[facility] [address] [address]Dr. Bhumi Lewis IG # 0.01 10e3/ul Normal 0.00-0.03 [facility] Comment on above: Performed By: #### C BC ####[facility] [address] [address]Dr. Bhumi Lewis IG % 0.2 % Normal 0.0-0.5 [facility] Comment on above: Performed By: #### C BC ####[facility] [address] [address]Dr. Bhumi Lewis LYMPH # 1.5 103/ul Normal 1.2-3.8 [facility] Comment on above: Performed By: #### C BC ####[facility] [address] [place], [place] [address]Dr. Bhumi Lewis Lymphocytes/100 WBC (Bld) 32.2 % Normal 20.5-60.0 [facility] Comment on above: Performed By: #### C BC ####[facility] [address] [address]Dr. Bhumi Lewis MANUAL DIFF REQ NO Normal [facility] Comment on above: Performed By: #### C BC ####[facility] [address] [place], [place] [address]Dr. Bhumi Lewis MCH (RBC) [Entitic mass] 31.7 pg Normal 26.7-34.0 [facility] Comment on above: Performed By: #### C BC ####[facility] [address] [place], [place] [address]Dr. Bhumi Lewis MCHC (RBC) [Mass/Vol] 32.2 g/dL Normal 29.9-35.2 [facility] Comment on above: Performed By: #### C BC ####[facility] [address] [id number]. Bhumi Lewis MCV (RBC) [Entitic vol] 98.3 fL Normal 81.0-99.0 [facility] Comment on above: Performed By: #### C BC ####[facility] [address] [address]Dr. Bhumi Lewis MONO # 0.4 103/ul Normal 0.3-0.8 [facility] Comment on above: Performed By: #### C BC ####[facility] [address] [address]Dr. Bhumi Lewis Monocytes/100 WBC (Bld) 7.4 % Normal 1.7-12.0 [facility] Comment on above: Performed By: #### C BC ####[facility] [address] [place], [place] [address]Dr. Bhumi Lewis NEUT # 2.7 103/ul Normal 1.4-6.5 [facility] Comment on above: Performed By: #### C BC ####[facility] [address] [address]Dr. Bhumi Lewis Neutrophils/100 WBC (Bld) 57.1 % Normal 43.0-75.0 [facility] Comment on above: Performed By: #### C BC ####[facility] [address] [address]Dr. Bhumi Lewis Platelet mean volume (Bld) [Entitic vol] 9.1 fL Critically low 9.5-13.5 [facility] Comment on above: Performed By: #### C BC ####[facility] [address] [address]Dr. Bhumi Lewis PLT 243 103/ul Normal 150-450 [facility] Comment on above: Performed By: #### C BC ####[facility] [address] [id number]. Bhumi Lewis RBC 4.23 106/ul Normal 4.20-5.40 [facility] Comment on above: Performed By: #### C BC ####[facility] [address] [place], [place] [address]Dr. Bhumi Lewis WBC 4.8 103/ul Normal 4.0-11.0 [facility] Comment on above: Performed By: #### C BC ####[facility] [address] [id number] Lewis GLYCOHEMOGLOBIN A1Con 2021 ADA RECOMMENDATION SEE BELOW Normal [facility] Comment on above: Result Comment: ADA RECOMMENDED LIMIT 4.0 - 6.0 ADA THERAPEUTIC TARGET < 7.0 ACTION SUGGESTED > 7.0 Performed By: #### A 1C ####[facility] [address] [address]DrSuzy Lewis Glucose [Mass/Vol] 120 mg/dL Normal [facility] Comment on above: Performed By: #### A 1C ####[facility] [address] [address]DrSuzy Lewis HbA1c (Bld) [Mass fraction] 5.8 % Normal 4.5-6.2 [facility] Comment on above: Performed By: #### A 1C ####[facility] [address] [address]DrSuzy Lewis IRONon 12-02-2021 Iron [Mass/Vol] 95.0 ug/dL Normal 50.0-170.0 [facility] Comment on above: Performed By: #### I HIWOT #### [facility] [address] [address] [address] Bhumi Lewis LIPID PROFILEon 12-02-2021 CHOL-HDL RATIO NORM SEE BELOW Normal [facility] Comment on above: Result Comment: 3.3 - 4.4 LOW RISK 4.4 - 7.1 AVERAGE RISK 7.1 - 11.0 MODERATE RISK >11.0 HIGH RISK Performed By: #### T SH, BNP, CMP, LIPID ####[facility] [address] [id number] Lewis Cholesterol [Mass/Vol] 218 mg/dL Critically high <=200 [facility] Comment on above: Performed By: #### T SH, BNP, CMP, LIPID ####[facility] [address] [address]Dr. Bhumi Lewis Cholesterol in HDL [Mass/Vol] 62 mg/dL Critically high 40-60 [facility] Comment on above: Performed By: #### T SH, BNP, CMP, LIPID ####[facility] [address] [place], [place] [address]Xq. Bhumi Lewis Cholesterol in LDL [Mass/Vol] 126.6 mg/dL Normal [facility] Comment on above: Performed By: #### T SH, BNP, CMP, LIPID ####[facility] [address] [address]Dr. Bhumi Lewis Cholesterol.total/Ch olesterol in HDL [Mass ratio] 3.5 {ratio} Normal [facility] Comment on above: Performed By: #### T SH, BNP, CMP, LIPID ####[facility] [address] [id number]. Bhumi Lewis HDL NORMAL > or = 60 mg/dl - LO W CARDIOVASCULAR RISK <40 mg/dl - HIGH CARDIOVASCULAR RISK Normal [facility] Comment on above: Performed By: #### T SH, BNP, CMP, LIPID ####[facility] [address] [place] [id number]. Bhumi Lewis LDL CALC NORMAL SEE BELOW Normal [facility] Comment on above: Result Comment: <100 mg/dl OPTIMAL 100 - 129 mg/dl NEAR OR ABOVE OPTIMAL 130 - 159 mg/dl BORDERLINE HIGH 160 - 189 mg/dl HIGH >190 mg/dl VERY HIGH Performed By: #### T SH, BNP, CMP, LIPID ####[facility] [address] [place] [id number]. Bhumi Lewis Triglyceride [Mass/Vol] 147 mg/dL Normal <=150 [facility] Comment on above: Performed By: #### T SH, BNP, CMP, LIPID ####[facility] [address] [place] [id number]. Bhumi Lewis VLDL CALC 29.4 mg/dL Normal [facility] Comment on above: Performed By: #### T SH, BNP, CMP, LIPID ####[facility] [address] [place] [address]Dr. Bhumi Lewis PROF 14(COMP METB)on 022 Albumin [Mass/Vol] 3.6 g/dL Normal 3.4-5.0 [facility] Comment on above: Performed By: #### T SH, BNP, CMP, LIPID ####[facility] [address] [place] [address]Dr. Bhumi Lewis Albumin/Globulin [Mass ratio] 1.0 {ratio} Normal [facility] Comment on above: Performed By: #### T SH, BNP, CMP, LIPID ####[facility] [address] [place] [address]Dr. Bhumi Lewis ALP [Catalytic activity/Vol] 64 U/L Normal 46-116 [facility] Comment on above: Performed By: #### T SH, BNP, CMP, LIPID ####[facility] [address] [place], [place] [address]Dr. Bhumi Lewis ALT [Catalytic activity/Vol] 21 U/L Normal 14-59 [facility] Comment on above: Performed By: #### T SH, BNP, CMP, LIPID ####[facility] [address] [place], [place] [address]Dr. Bhumi Lewis Anion gap [Moles/Vol] 13.5 mmol/L Normal [facility] Comment on above: Performed By: #### T SH, BNP, CMP, LIPID ####[facility] [address] [place] [address]Dr. Bhumi Lewis AST [Catalytic activity/Vol] 21 U/L Normal 15-37 [facility] Comment on above: Performed By: #### T SH, BNP, CMP, LIPID ####[facility] [address] [place], [place] [address]Dr. Bhumi Lewis Bilirubin [Mass/Vol] 0.4 mg/dL Normal 0.2-1.0 [facility] Comment on above: Performed By: #### T SH, BNP, CMP, LIPID ####[facility] [address] [place] [address]Dr. Bhumi Lewis Calcium [Mass/Vol] 9.0 mg/dL Normal 8.5-10.1 [facility] Comment on above: Performed By: #### T SH, BNP, CMP, LIPID ####[facility] [address] [place] [address]Dr. Bhumi Lewis Chloride [Moles/Vol] 105 mmol/L Normal 98-107 [facility] Comment on above: Performed By: #### T SH, BNP, CMP, LIPID ####[facility] [address] [place] [address]Dr. Bhumi Lewis CO2 [Moles/Vol] 24.7 mmol/L Normal 21.0-32.0 [facility] Comment on above: Performed By: #### T SH, BNP, CMP, LIPID ####[facility] [address] [place] [address]Dr. Bhumi Lewis Creatinine [Mass/Vol] 1.04 mg/dL Critically high 0.55-1.02 [facility] Comment on above: Performed By: #### T SH, BNP, CMP, LIPID ####[facility] [address] [place] [address]Dr. Bhumi Lewis EGFR-AF ANGOLAN >60 Normal >=60 [facility] Comment on above: Performed By: #### T SH, BNP, CMP, LIPID ####[facility] [address] [place] [address]Dr. Bhumi Lewis EGFR-NON AF ANGOLAN 52 mL/min/1.73m2 Critically low >=60 [facility] Comment on above: Performed By: #### T SH, BNP, CMP, LIPID ####[facility] [address] [place] [address]Dr. Bhumi Lewis Globulin (S) [Mass/Vol] 3.6 g/dL Normal [facility] Comment on above: Performed By: #### T SH, BNP, CMP, LIPID ####[facility] [address] [place] [address]Dr. Bhumi Lewis Glucose [Mass/Vol] 96 mg/dL Normal 74-106 [facility] Comment on above: Performed By: #### T SH, BNP, CMP, LIPID ####[facility] [address] [place] [address]Dr. Bhumi Lewis Potassium [Moles/Vol] 4.2 mmol/L Normal 3.5-5.1 [facility] Comment on above: Performed By: #### T SH, BNP, CMP, LIPID ####[facility] [address] [place] [address]Dr. Bhumi Lewis Protein [Mass/Vol] 7.2 g/dL Normal 6.4-8.2 [facility] Comment on above: Performed By: #### T SH, BNP, CMP, LIPID ####[facility] [address] [place] [address]Dr. Bhumi Lewis Sodium [Moles/Vol] 139 mmol/L Normal 136-145 [facility] Comment on above: Performed By: #### T SH, BNP, CMP, LIPID ####[facility] [address] [place] [address]Dr. Bhumi Lewis Urea nitrogen [Mass/Vol] 20.0 mg/dL Critically high 7.0-18.0 [facility] Comment on above: Performed By: #### T SH, BNP, CMP, LIPID ####[facility] [address] [place] [address]Dr. Bhumi Lewis Urea nitrogen/Creatinine [Mass ratio] 19.2 mg/mg Normal [facility] Comment on above: Performed By: #### T SH, BNP, CMP, LIPID ####[facility] [address] [place] [address]Dr. Bhumi Lewis TSHon 12-02-2021 TSH 2.178 uIU/mL Normal 0.358-3.740 [facility] Comment on above: Performed By: #### T SH, BNP, CMP, LIPID ####[facility] [address] [place] [address]Dr. 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 Summaryon 0 10-08-2021 Ambulatory Visit Summary MAGALI ALDRICH :1950 Visit Date:10/08/2021 Ambulatory Visit Instructions Your Diagnosis Urethral caruncle Vaginal atrophy Pelvic pain Cervical polyp Tests Performed Urnls Dip Stick Auto w/o Microscopy POC 66518 Your Care Team Attending Physician - Lorena [...] DOREEN Story, URO When: Where: [address] [place] [address] [phone] Medications What How Much When Instructions Unchanged [...] Urnls Dip Stick Auto w/o Microscopy POC 30416 (10/08/2021) Bilirubin Urine Dipstick - Negative Blood Urine Dipstick - Trace-intact Glucose Urine Dipstick - Negative Ketones Urine Dipstick - Negative Leukocytes Urine Dipstick - Negative Nitrite Urine Dipstick - Negative Protein Urine Dipstick - Negative Specific Dalton Urine Dipstick - >=1.030 Urine Appearance Urine [...] these instructions at home: Medicines ? Take hudv-zpi-pfstfpo and prescription medicines only as told by [...] belly pain for any changes. ? Take dyci-sju-nttjgvm and prescription medicines only as told by your do (more content not included)... Normal [facility] Patient Educationon 10-09-19 22 Patient Education Gastroenterology Abdominal Pain, Adult Many things can cause belly (abdominal) pain. Most times, belly pain is not dangerous. Many cases of belly pain can be watched and treated at home. Sometimes, though, belly pain is serious. Your doctor will try to find the cause of your belly pain. Follow these instructions at home: Medicines ? Take poeo-tqy-cufxznk and prescription medicines only as told by [...] belly pain for any changes. ? Take vjrp-hqk-qsjuxaz and prescription medicines only as told by [...] 09/14/2008 Document Revised: 08/07/2019 Document Reviewed: 08/07/2019 [employer] Patient Education ? 2019 [employer]. Mehul [facility] Urology Office/Clinic Noteon 10-08-2021 Urology Office/Clinic Note [...] this time. She has not seen her broadcasting equipment mechanic as of yet for the cervical polyp. [...] Noted on vaginoscopy has not seen her broadcasting equipment mechanic as of yet for the cervical polyp. Educated pt that she needs to see her WINDOWS SUPPORT ENGINEER to f/u with this. Follow-up With When Contact Information Jesus WALSH, Lorena Morocho, URL, URO [address], [place] [phone] Additional Instructions: PRN Patient Education Abdominal Pain, Adult, Dgvc-it-Tljv I, Beba Rodriguez, personally scribed for Dr. [...] Protein Urine Dipstick: Negative (10/08/21 09:46:00) Specific Dalton Urine Dipstick: >=1.030 (10/08/21 09:46:00) Urine Appearance Urine Dipstick: Clear (10/08/21 09:46:00) Urine Color Urine Dipstick: Yellow (10/08/21 09:46:00) Urobilinogen Urine Dipstick: Normal 0.2-1 EU/dl (10/08/21 0 (more content not included)... [facility] Comment on above: Result Comment: Elec tronically Signed By: Lorena Lee MD\.br\Date and Time Signed: 10/08/21 10:13 EDT\.br\Electronically Co-Signed By: Beba Rodriguez MA\.br\Date and Time Co-Signed: 10/08/21 10:06 EDT Consent for Procedure/Surger yon 06-24-2021 Consent for Procedure/Surgery [id number] .00CD:127 [facility] Urology Office/Clinic Noteon 06-24-2021 Urology Office/Clinic Note [...] pain) Improved on topical estrogen. Ordered: Cystourethroscopy 30672 4. Cervical polyp (N84.1: Polyp of cervix uteri) Noted on vaginoscopy today. Recommend follow-up with gynecology for further evaluation. Follow-up With When Contact Information Lorena Lee MD, URL, URO In 3 months 09/24/2021 EDT Additional Instructions: Patient Education Cystoscopy IDarlin, personally scribed for Dr. Lee on 06/24/2021 [...] denies prior gynecologic surgeries or prior abnormal WINDOWS SUPPORT ENGINEER workups. Denies vaginal bleeding or spotting. Pelvic pain improved now on topical estrogen, however given new findings on vaginoscopy, recommend further evaluation with Brazing Machine Operator Helper. Normal [facility] Comment on above: Result Comment: Elec tronically Signed By: Jesus WALSH, Lorena Morocho\.br\Date and Time Signed: 06/24/21 09:27 EDT Formson 06-12-2021 Forms [id number] .[id number]:127 [facility] Physician Referralon 022 Physician Referral [id number]:127 Normal [facility] Vital Signs Date Time Vital Sign Value Performing Clinician Lavern bangura 04-24-2022 14:15-0500 Blood Pressure Location Noam NILL [facility] 04-24-2022 14:15-0500 Diastolic blood pressure 76 mm[Hg] Noam NILL [facility] 04-24-2022 14:15-0500 Heart rate 68 /min Noam NILL [facility] 04-24-2022 14:15-0500 Respiratory rate 16 /min Noam NILL [facility] 04-24-2022 14:15-0500 Systolic blood pressure 120 mm[Hg] Noam NILL [facility] 10-08-2021 09:47-0400 Blood Pressure [facility]-08-[facility]21 09:47-0400 Diastolic blood pressure 67 mm[Hg] [facility]ue [facility] 10-08-2021 09:47-0400 Heart rate 61 /min [facility]orena Lue [facility] 10-08-2021 09:47-0400 Respiratory rate 16 /min Lorena Lue [facility] 10-08-2021 09:47-0400 Systolic blood pressure 130 mm[Hg] Lorena Lue [facility] Encounters Encounter Date Encounter Type Care Provider Facility Start: 07-25-2022 End: 07-25-[address] KERRIE HAMMER . Facility:[facility] Start: 07-24-2022 End: 07-25-[address] KERRIE HAMMER . Facility:[facility] Start: 05-27-2022 End: 05-28-2022 ambulatory Noam Brittani CORAL Facility:CD:[id number] Start: 04-24-2022 End: 04-25-2022 ambulatory Kerrie Hammer Facility: [facility] Start: 04-24-2022 End: 04-24-2022 Patient encounter procedure Noam LEDESMA [facility] Nill[facility] Start: 02-25-2022 End: 02-26-[address] KERRIE HAMMER . Facility:[facility] Start: 02-13-2022 ambulatory Kerrie Hammer Facility:[facility] Start: 12-02-2021 End: 12-03-[address] KERRIE HAMMER . Facility: Start: 10-08-2021 End: 10-09-2021 ambulatory Lorena Lee Facility:[facility] [place] Start: 10-08-2021 End: 10-08-2021 Patient encounter procedure Lorena Lee [facility] [place] Start: 10-03-2021 ambulatory Lorena Lee Facility:[facility] Start: 09-26-2021 ambulatory Loerna Lee Facility:[facility] [place] Start: 06-24-2021 ambulatory Kerrie Hammer Facility:[facility] Start: 06-24-2021 End: 06-25-2021 ambulatory Lorena Lee Facility:[facility] Start: 06-23-2021 ambulatory Kerrie Hammer Facility:[facility] Procedures Date Procedure Procedure Detail Performing Clinician Start: 06-24-2021 Cystoscopy Lorena Lee Start: 10-12-2007 Colonoscopy Noam WOLF Cholecystectomy Lornea Lee Colonoscopy Lorena Lee Decompression of med greta nerve Noam LEDESMA Hammer toe operation Noam LEDESMA History of nasal sin us surgery Noam LEDESMA Insertion of hip prosthesis Lornea Lee Repair of hip Noam LEDESMA Immunizations Immunization Date Immunization Notes Care Provider Fa cili 01-08-2022 SARS-CoV-2 (COVID-19 ) mRNAMUL.ORD![id number] Noam LEDESMA [facility] [place] 12-12-2021 influenza virus vaccine, unspecified formulation Noam LEDESMA [facility] [place] 07-22-2021 SARS-CoV-2 (COVID-19 ) mRNA-1273 vaccine Noam VALENCIAL [facility] [place] 02-12-2021 SARS-CoV-2 (COVID-19 ) mRNA-1273 vaccine Noam VALENCIAL [facility] [place] 01-10-2021 SARS-CoV-2 (COVID-19 ) Ad26 vaccine, recombinant Lorena Lue [facility] 06-10-2020 SARS-CoV-2 (COVID-19 ) Ad26 vaccine, recombinant Lorena Lue [facility] 05-13-2020 SARS-CoV-2 (COVID-19 ) Ad26 vaccine, recombinant Lorena Lue [facility] Payers Date Payer Category Payer Medicare [id number] 1961 Unknown [id number] 1950 Unknown [id number] 2.16.8 [id number] 1950 Unknown [id number] 2.16.8 [id number] 1950 Unknown [id number] 2.16.8 40.1.968918.3.579.2.727 1950 Unknown [id number] 2.16.8 40.1.519630.3.579.2.727 1950 Unknown [id number] 2.16.8 40.1.118154.3.579.2.727 1950 Unknown [id number] 2.16.8 40.1.309532.3.579.2.727 1950 Unknown [id number] 2.16.8 40.1.197366.3.579.2.727 1950 Unknown [id number] 2.16.8 40.1.254956.3.579.2.727 1950 Unknown [id number] 2.16.84 0.1.220291.3.579.2.593 1950 Unknown [id number] 2.16.84 0.1.711947.3.579.2.593 1950 Unknown [id number] 2.16.84 0.1.967034.3.579.2.593 1950 Unknown [id number] 2.16.84 0.1.490006.3.579.2.593 1950 Unknown [id number] 2.16.84 0.1.848547.3.579.2.593 Medicare [id number] Social History Date Type Detail Facility Start: 06-04-2021 End: 04-24-2022 Tobacco smoking status Never smoked tobacco (finding) [facility] Tobacco smoking status Never [facility] Sex Assigned At Female [facility] Functional Status Date Assessment Result Facility 04-24-2022 Functional Status N/A [facility] [place] 10-08-2021 Functional Status N/A [facility] Clinical Note 05-27-2022 Note Date & Type [...] good condition. CC: Kerrie Hammer M.D. [facility] Clinical Note 04-24-2022 Note Date & Type [...] 1 tab(s), Oral, Bedtime Flonase 0.05 mg/inh Outing, 1 spray(s), Nasal, BID ICaps AREDS 2 [...] Mother. Immunizations Vaccine Date Status SARS-CoV-2 (COVID-19) mRNAMUL.ORD![id number] 01/08/2022 Recorded influenza virus vaccine, inactivated 12/12/2021 Recorded SARS-CoV-2 (COVID-19) mRNA-1273 vaccine 07/22/2021 Recorded SARS-CoV-2 (COVID-19) mRNA-1273 vaccine 02/12/2021 Recorded SARS-CoV-2 (COVID-19) Ad26 vaccine 01/2021 Recorded SARS-CoV-2 (COVID-19) Ad26 vaccine 06/2020 Recorded SARS-CoV-2 (COVID-19) Ad26 vaccine 05/2020 Recorded [facility] Comment on above: Result Comment: Elec tronically Signed By: CORAL WALSH, Noam Shen\Date and Time Signed: 04/24/22 14:42 EST Hospital Discharge instructions 10-08-2021 Note Date & Type Note Facility 10-08-2021 Hospital Discharg e instructions Patient Education 10/08/2021 10:00:26 Abdominal Pain, Adult, Kccx-hh-Kzoi Abdominal Pain, Adult Many things can cause belly (abdominal) pain. Most times, belly pain is not dangerous. Many cases of belly pain can be watched and treated at home. Sometimes, though, belly pain is serious. Your doctor will try to find the cause of your belly pain. Follow these instructions at home: Medicines Take cedc-jkk-wnmudoi and prescription medicines only as told by [...] your belly pain for any changes. Take qpwp-ocr-sabrrzo and prescription medicines only as told by [...] 09/14/2008 Document Revised: 08/07/2019 Document Reviewed: 08/07/2019 [employer] Patient Education 2019 [employer]. Follow Up Care 09/04/2021 10:44:24 With:Jesus WALSH, GIGI StoryL, URO Address: [address] [place] [address] [phone] When: Unknown [facility] Clinical Note 06-24-2021 Note Date & Type [...] including vitamins, herbs, eye drops, creams, and cyzb-ppl-nqygnng medicines. ? Any problems you or family [...] tells you to take them. ? Taking vxph-xca-fxjljgs medicines, vitamins, herbs, and supplements. ? Follow [...] these instructions at home: Medicines ? Take xguf-ufg-qcmgazh and prescription medicines only as told by [...] This is importa (more content not included)... [facility] Evaluation + Plan note Note Date & Type Note Facility Evaluation + Plan note No data available for this section [facility] Hospital Discharge instructions Note Date & Type Note Facility Hospital Discharge instructions No data available for this section General Surgery [place] Progress note Note Date & Type Note Facility Progress note No data available for this section [facility] Summary Purpose Family History No Family History Records FoundNo Family History Records FoundNo Family History Records Found Advance Directives No Advanced Directives Records FoundNo Advanced Directives Records FoundNo Advanced Directives Records Found Additional Source Comments Care Team (unrecognized sect ion and content) Personnel Name: Kerrie Hammer MD Address: [address] [place] [address] Personnel Name: Kerrie Hammer MD Address: Address: [address] [place] [address] INFORMATION SOURCE (unrecogn ized section and content) DATE CREATED AUTHOR 10/11/2021 [facility] dical Specialist DATE CREATED AUTHOR AUTHOR'S ORGANIZ ATION 06/05/2022 [facility] DATE CREATED AUTHOR AUTHOR'S ORGANIZ ATION 07/30/2022 [facility] FOR RECORDS PERTAINING TO PATIENTS [...] BE BASED ON THE PRIMARY CLINICAL RECORDS. [employer] provides no warranty or guarantee of the accuracy or completeness of information in this document.
[2024-02-18 07:40] LABS: Basophils Percent Auto 0.5 % (0.2-2.0); Eosinophils Absolute Auto 0.2 10^3/uL (0.0-0.7); Eosinophils Percent Auto 3.8 % (0.9-7.0); Hematocrit 41.7 % (36.0-48.0); Hemoglobin 13.5 g/dL (12.0-16.0); Immature Granulocytes Abs Auto 0.01 10^3/uL (0.00-0.03); Immature Granulocytes Pct Auto 0.3 % (0.0-0.5); Lymphocytes Absolute Auto 1.6 10^3/uL (1.2-3.8); Lymphocytes Percent Auto 39.9 % (20.5-60.0); Mean Corpuscular HGB Conc 32.4 g/dL (29.9-35.2); Mean Corpuscular Hemoglobin 31.2 pg (26.7-34.0); Mean Corpuscular Volume 96.3 fL (81.0-99.0); Mean Platelet Volume 9.4 fL (9.5-13.5); Monocytes Absolute Auto 0.3 10^3/uL (0.3-0.8); Monocytes Percent Auto 8.1 % (1.7-12.0); Neutrophils Absolute Auto 1.9 10^3/uL (1.4-6.5); Neutrophils Percent Auto 47.4 % (43.0-75.0); Platelet Count 226 10^3/uL (150-450); Red Blood Count 4.33 10^6/uL (4.20-5.40); Red Cell Distribution Width 13.1 % (11.0-15.0)
[2024-02-18 07:59] LABS: Estimated Average Glucose 126 mg/dL
[2024-02-18 08:15] LABS: Alanine Aminotransferase 19 U/L (14-59); Albumin Globulin Ratio 0.8; Albumin Level 3.2 g/dL (3.4-5.0); Alkaline Phosphatase 66 U/L (46-116); Anion Gap 13.3; Aspartate Amino Transferase 19 U/L (15-37); BUN Creatinine Ratio 17.9; Bilirubin Total 0.5 mg/dL (0.2-1.0); Calcium 8.6 mg/dL (8.5-10.1); Carbon Dioxide 28.2 mmol/L (21.0-32.0); Chloride 110 mmol/L (98-107); Chol HDL Ratio 3.1; Cholesterol 208 mg/dL (<=200); Estimated GFR (African America >60 (>=60 mL/min/1.73m^2); Estimated GFR (Non-African Ame 51 (>=60 mL/min/1.73m^2); Free T3 2.08 pg/mL (2.18-3.98); Globulin 3.8 g/dL; Glucose 94 mg/dL (74-106); HDL Cholesterol 68 mg/dL (40-60); Potassium 4.5 mmol/L (3.5-5.1); Sodium 147 mmol/L (136-145); Thyroid Stimulating Hormone 4.419 uIU/mL (0.358-3.740); Triglycerides 151 mg/dL (<=150); VLDL CHOLESTEROL 30.2 mg/dL
== END 2024-02-18 07:21 | disposition home or self-care (01) ==
LOC: LAB 07:24
PROVIDERS: PCP Family Medicine; Visit Provider Family Medicine
DX: E78.00 Pure hypercholesterolemia, unspecified (principal); R53.83 Other fatigue; R42 Dizziness and giddiness; E28.39 Other primary ovarian failure
CPT/HCPCS: 36415; 80053; 80061; 83036; 84436; 84443; 84481; 85025

== ENCOUNTER 2024-02-22 08:13 | Outpatient (REF) | payer MEDICARE, SELFPAY ==
--- OUTSIDE RECORDS SUMMARY | 2024-02-22 08:21 | XMS_ITS | CCD ---
Author Organization [facility] Care Team Providers Care Service Coordinator Name Role Phone Kerrie Hammer Primary Care Physician [phone] Kerrie Hammer Referring Unavailable NILLNoam Attending Unavailable [...] Unavailable HOY ., DR SY Consulting Unavailable BOERNE, DR KENN Loyd Consulting Unavailable HOY ., DR SY Primary Care Unavailable HOY ., DR SY Admitting Unavailable HOY ., DR SY Attending Unavailable HOY ., DR SY Consulting Unavailable Allergies Allergy Classification Reported Allergen(s) Allergy Type Date of Onset Reaction(s) Facility (3 sources) Pseudoephedrine; Translations: [pseudoephedrine] Drug Allergy Eruption (morphologic abnormality) [facility] (3 sources) Sulfonamides (Antibiotic); Translations: [sulfa drugs] Drug allergy Unknown (qualifier value), Eruption of skin (disorder) [facility] (1 source) Pseudoephedrine Drug Allergy [facility] (1 source) Sulfonamides (Antibiotic) Drug allergy (disorder) [facility] Medications Current Medications Medication Drug [...] sources) Corticosteroid Start: 04-08-2022 Flonase 0.05 mg/inh [place] 1 spray(s), Nasal, BID, Refill(s) 0 Start [...] 06-04-2021 Chronic Other aftercare (1 source) 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 DIFFICILE PCR Negative Normal NEGATIVE [facility] Comment on above: Performed By: #### C DIFPO #### [facility] [address] [place] [address] Dr. Bhumi Lewis BNPon 07-24-2022 Natriuretic peptide B (Bld) [Mass/Vol] 381.0 pg/mL Normal <=900.0 [facility] Comment on above: Performed By: #### T SH, LIVER, T7, BNP, BMP #### [facility] [address] [place] [address] Dr. Bhumi Lewis CBC AUTO DIFFon 07-24-2022 BASO # 0.0 103/ul Normal 0.0-0.1 [facility] Comment on above: Performed By: #### C BC #### [facility] [address] [place] [address] Dr. Bhumi Lewis Basophils/100 WBC (Bld) 0.4 % Normal 0.2-2.0 [facility] Comment on above: Performed By: #### C BC #### [facility] [address] [place] [address] Dr. Bhumi Lewis EO # 0.1 103/ul Normal 0.0-0.7 [facility] Comment on above: Performed By: #### C BC #### [facility] [address] [place] [address] Dr. Bhumi Lewis Eosinophils/100 WBC (Bld) 2.7 % Normal 0.9-7.0 [facility] Comment on above: Performed By: #### C BC #### [facility] [address] [place] [address] Dr. Bhumi Lewis Erythrocyte distribution width (RBC) [Ratio] 13.1 % Normal 11.0-15.0 [facility] Comment on above: Performed By: #### C BC #### [facility] [address] [place] [address] Dr. Bhumi Lewis Hematocrit (Bld) [Volume fraction] 40.0 % Normal 36.0-48.0 [facility] Comment on above: Performed By: #### C BC #### [facility] [address] [place] [address] Dr. Bhumi Lewis Hemoglobin (Bld) [Mass/Vol] 13.2 g/dL Normal 12.0-16.0 [facility] Comment on above: Performed By: #### C BC #### [facility] [address] [place] [address] Dr. Bhumi Lewis IG # 0.02 10e3/ul Normal 0.00-0.03 [facility] Comment on above: Performed By: #### C BC #### [facility] [address] [place] [address] Dr. Bhumi Lewis IG % 0.4 % Normal 0.0-0.5 [facility] Comment on above: Performed By: #### C BC #### [facility] [address] [place] [address] Dr. Bhumi Lewis LYMPH # 1.4 103/ul Normal 1.2-3.8 [facility] Comment on above: Performed By: #### C BC #### [facility] [address] [place] [address] Dr. Bhumi Lewis Lymphocytes/100 WBC (Bld) 30.3 % Normal 20.5-60.0 [facility] Comment on above: Performed By: #### C BC #### [facility] [address] [place] [address] Dr. Bhumi Lewis MANUAL DIFF REQ NO Normal [facility] Comment on above: Performed By: #### C BC #### [facility] [address] [place] [address] Dr. Bhumi Lewis MCH (RBC) [Entitic mass] 31.1 pg Normal 26.7-34.0 [facility] Comment on above: Performed By: #### C BC #### [facility] [address] [place] [address] Dr. Bhumi Lewis MCHC (RBC) [Mass/Vol] 33.0 g/dL Normal 29.9-35.2 [facility] Comment on above: Performed By: #### C BC #### [facility] [address] [place] [address] Dr. Bhumi Lewis MCV (RBC) [Entitic vol] 94.3 fL Normal 81.0-99.0 [facility] Comment on above: Performed By: #### C BC #### [facility] [address] [place] [address] Dr. Bhumi Lewis MONO # 0.4 103/ul Normal 0.3-0.8 [facility] Comment on above: Performed By: #### C BC #### [facility] [address] [place] [address] Dr. Bhumi Lewis Monocytes/100 WBC (Bld) 9.3 % Normal 1.7-12.0 [facility] Comment on above: Performed By: #### C BC #### [facility] [address] [place] [address] Dr. Bhumi Lewis NEUT # 2.6 103/ul Normal 1.4-6.5 [facility] Comment on above: Performed By: #### C BC #### [facility] [address] [place] [address] Dr. Bhumi Lewis Neutrophils/100 WBC (Bld) 56.9 % Normal 43.0-75.0 [facility] Comment on above: Performed By: #### C BC #### [facility] [address] [place] [address] Dr. Bhumi Lewis Platelet mean volume (Bld) [Entitic vol] 9.2 fL Critically low 9.5-13.5 [facility] Comment on above: Performed By: #### C BC #### [facility] [address] [place] [address] Dr. Bhumi Lewis PLT 249 103/ul Normal 150-450 [facility] Comment on above: Performed By: #### C BC #### [facility] [address] [place] [address] Dr. Bhumi Lewis RBC 4.24 106/ul Normal 4.20-5.40 [facility] Comment on above: Performed By: #### C BC #### [facility] [address] [place] [address] Dr. Bhumi Lewis WBC 4.5 103/ul Normal 4.0-11.0 [facility] Comment on above: Performed By: #### C BC #### [facility] [address] [place] [address] Dr. Bhumi Lewis FREE THYROXINE INDEX T7on FTI 2.18 Normal 1.30-4.50 [facility] Comment on above: Performed By: #### T SH, LIVER, T7, BNP, BMP #### [facility] [address] [place] [address] Dr. Bhumi Lewis T3U 33.0 % Normal 30.0-39.0 [facility] Comment on above: Performed By: #### T SH, LIVER, T7, BNP, BMP #### [facility] [address] [place] [address] Dr. Bhumi Lewis T4 [Mass/Vol] 6.60 ug/dL Normal 4.80-13.90 [facility] Comment on above: Performed By: #### T SH, LIVER, T7, BNP, BMP #### [facility] [address] [place] [address] Dr. Bhumi Lewis LIVER PROFILEon 07-24-2022 Albumin [Mass/Vol] 3.4 g/dL Normal 3.4-5.0 [facility] Comment on above: Performed By: #### T SH, LIVER, T7, BNP, BMP #### [facility] [address] [place] [address] Dr. Bhumi Lewis Albumin/Globulin [Mass ratio] 0.9 {ratio} Normal [facility] Comment on above: Performed By: #### T SH, LIVER, T7, BNP, BMP #### [facility] [address] [place] [address] Dr. Bhumi Lewis ALP [Catalytic activity/Vol] 66 U/L Normal 46-116 [facility] Comment on above: Performed By: #### T SH, LIVER, T7, BNP, BMP #### [facility] [address] [place] [address] Dr. Bhumi Lewis ALT [Catalytic activity/Vol] 26 U/L Normal 14-59 [facility] Comment on above: Performed By: #### T SH, LIVER, T7, BNP, BMP #### [facility] [address] [place] [address] Dr. Bhumi Lewis AST [Catalytic activity/Vol] 21 U/L Normal 15-37 [facility] Comment on above: Performed By: #### T SH, LIVER, T7, BNP, BMP #### [facility] [address] [address] [address] Bhumi Lewis BILI, CONJUGATED 0.1 mg/dL Normal 0.0-0.2 [facility] Comment on above: Performed By: #### T SH, LIVER, T7, BNP, BMP #### [facility] [address] [address] [address] Bhumi Lewis Bilirubin [Mass/Vol] 0.2 mg/dL Normal 0.2-1.0 [facility] Comment on above: Performed By: #### T SH, LIVER, T7, BNP, BMP #### [facility] [address] [place] [address] Dr. Bhumi Lewis Globulin (S) [Mass/Vol] 4.0 g/dL Normal [facility] Comment on above: Performed By: #### T SH, LIVER, T7, BNP, BMP #### [facility] [address] [place] [address] Dr. Bhumi Lewis Protein [Mass/Vol] 7.4 g/dL Normal 6.4-8.2 [facility] Comment on above: Performed By: #### T SH, LIVER, T7, BNP, BMP #### [facility] [address] [place] [address] Dr. Bhumi Lewis MG MAMM SCREEN 3D SANTANA CADon 07-24-2022 MG MAMM SCREEN 3D SANTANA CAD Patient: MAGALI ALDRICH Exam Date: 07/24/2022 : 1950 Gender:F Ordering : DR KERRIE HAMMER . Admission #: [id number] Family : Order #: [id number] CLICK HERE TO VIEW EXAM RADIOLOGY REPORT [...] colon cancer at age 88. LOCATION: [facility] BREAST COMPOSITION: Almost entirely fatty. FINDINGS: [...] MD on 07/27/2022 at 09:52 Normal [facility] PROF CHEM 8 (BAS METB)on Anion gap [Moles/Vol] 15.0 mmol/L Normal [facility] Comment on above: Performed By: #### T SH, LIVER, T7, BNP, BMP #### [facility] [address] [place] [address] Dr. Bhumi Lewis Calcium [Mass/Vol] 9.0 mg/dL Normal 8.5-10.1 [facility] Comment on above: Performed By: #### T SH, LIVER, T7, BNP, BMP #### [facility] [address] [place] [address] Dr. Bhumi Lewis Chloride [Moles/Vol] 107 mmol/L Normal 98-107 [facility] Comment on above: Performed By: #### T SH, LIVER, T7, BNP, BMP #### [facility] [address] [place] [address] Dr. Bhumi Lewis CO2 [Moles/Vol] 26.7 mmol/L Normal 21.0-32.0 [facility] Comment on above: Performed By: #### T SH, LIVER, T7, BNP, BMP #### [facility] [address] [place] [address] Dr. Bhumi Lewis Creatinine [Mass/Vol] 1.01 mg/dL Normal 0.55-1.02 [facility] Comment on above: Performed By: #### T SH, LIVER, T7, BNP, BMP #### [facility] [address] [address] [address] Bhumi Lewis EGFR-AF GHANAIAN >60 Normal >=60 [facility] Comment on above: Performed By: #### T SH, LIVER, T7, BNP, BMP #### [facility] [address] [address] [address] Bhumi Lewis EGFR-NON AF GHANAIAN 54 mL/min/1.73m2 Critically low >=60 [facility] Comment on above: Performed By: #### T SH, LIVER, T7, BNP, BMP #### [facility] [address] [address] [address] Bhumi Lewis Glucose [Mass/Vol] 100 mg/dL Normal 74-106 [facility] Comment on above: Performed By: #### T SH, LIVER, T7, BNP, BMP #### [facility] [address] [place] [address] Dr. Bhumi Lewis Potassium [Moles/Vol] 4.7 mmol/L Normal 3.5-5.1 [facility] Comment on above: Performed By: #### T SH, LIVER, T7, BNP, BMP #### [facility] [address] [place] [address] Dr. Bhumi Lewis Sodium [Moles/Vol] 144 mmol/L Normal 136-145 [facility] Comment on above: Performed By: #### T SH, LIVER, T7, BNP, BMP #### [facility] [address] [place] [address] Dr. Bhumi Lewis Urea nitrogen [Mass/Vol] 22.0 mg/dL Critically high 7.0-18.0 [facility] Comment on above: Performed By: #### T SH, LIVER, T7, BNP, BMP #### [facility] [address] [place] [address] Dr. Buhmi Lewis Urea nitrogen/Creatinine [Mass ratio] 21.8 mg/mg Normal [facility] Comment on above: Performed By: #### T SH, LIVER, T7, BNP, BMP #### [facility] [address] [place] [address] Dr. Bhumi Lewis TSHon 07-24-2022 TSH 2.303 uIU/mL Normal 0.358-3.740 [facility] Comment on above: Performed By: #### T SH, LIVER, T7, BNP, BMP #### [facility] [address] [address] [address] Bhumi Lewis Reminderson 05-29-2022 Reminders - From: Hien White LPN To: GSN - Clinical; Sent: 05/29/2022 13:21:17 EST Show up: 04/26/2032 07:00:00 EST Subject: colonoscopy recall Due Date/Time: 05/27/2032 07:00:00 EST Reminder/Recall Patient is due for screening colonoscopy 05/27/2032. Normal [facility] Outside Colonoscopyon 2022 Outside Colonoscopy [id number] .[id number]:127 Normal [facility] Consent for Procedure/Surger yon 04-27-2022 Consent for Procedure/Surgery [id number] .[id number]:127 Normal [facility] XR DEXA BONE DENSITYon 02-25 XR [...] by: RUTH CARTER Date: 2022-02-25 08:56 Normal [facility] Physician Referralon 022 Physician Referral [id number] .[id number]:127 Normal [facility] INSULINon 12-03-2021 Insulin 10.4 uIU/mL Normal 2.6-24.9 [facility] Comment on above: Performed By: #### I NSULIN ####[facility] [address] [place], [place] [address]HmDr. Bhumi Lewis T4, T3U, FTI LABCORPon 12-03 Free Thyroxine Index 1.4 Normal 1.2-4.9 [facility] Comment on above: Performed By: #### T HYLC #### [facility] [address] [address] [address] Bhumi Lewis T3 Uptake 23 % Critically low 24-39 [facility] Comment on above: Performed By: #### T HYLC #### [facility] [address] [address] [address] Bhumi Lewis T4 [Mass/Vol] 6.2 ug/dL Normal 4.5-12.0 [facility] Comment on above: Performed By: #### T HYLC #### [facility] [address] [address] [address] Bhumi Lewis VIT D 25-OH LABCORPon 2021 Vitamin D, 25-Hydroxy 34.6 ng/mL Normal 30.0-100.0 [facility] Comment on above: Result Comment: Romy min D deficiency has been defined by the [place] [employer] and an Endocrine Society practice guideline as a level of serum 25-OH vitamin D less than 20 ng/mL (1,2). The Endocrine Society went on to further define vitamin D insufficiency as a level between 21 and 29 ng/mL (2). 1. IOM ([place] [employer]). 2010. Dietary reference intakes for calcium and D. [place]: The National Academies Press. 2. Elizabeth MF, [place], Yumi JAIMES, et al. Evaluation, treatment, and prevention of vitamin D deficiency: an Endocrine Society clinical practice guideline. JCEM. 2010; 96(7):1911-30. Performed By: #### V ITADLC ####[facility] [address] [address]Dr. Bhumi Lewis BNPon 12-02-2021 Natriuretic peptide B (Bld) [Mass/Vol] 225.0 pg/mL Normal <=900.0 [facility] Comment on above: Performed By: #### T SH, BNP, CMP, LIPID ####[facility] [address] [place], [place] [address]Dr. Bhumi Lewis CBC AUTO DIFFon 12-02-2021 BASO # 0.0 103/ul Normal 0.0-0.1 [facility] Comment on above: Performed By: #### C BC ####[facility] [address] [place], [place] [address]Dr. Kortneynanette Lewis Basophils/100 WBC (Bld) 0.2 % Normal 0.2-2.0 [facility] Comment on above: Performed By: #### C BC ####[facility] [address] [place], [place] [address]Dr. Bhumi Lewis EO # 0.1 103/ul Normal 0.0-0.7 [facility] Comment on above: Performed By: #### C BC ####[facility] [address] [place], [place] [address]Dr. Bhumi Joshua Eosinophils/100 WBC (Bld) 2.9 % Normal 0.9-7.0 [facility] Comment on above: Performed By: #### C BC ####[facility] [address] [place], [place] [address]Dr. Bhumi Lewis Erythrocyte distribution width (RBC) [Ratio] 13.2 % Normal 11.0-15.0 [facility] Comment on above: Performed By: #### C BC ####[facility] [address] [place], [place] [address]Dr. Bhumi Joshua Hematocrit (Bld) [Volume fraction] 41.6 % Normal 36.0-48.0 [facility] Comment on above: Performed By: #### C BC ####[facility] [address] [id number]. Bhumi Lewis Hemoglobin (Bld) [Mass/Vol] 13.4 g/dL Normal 12.0-16.0 [facility] Comment on above: Performed By: #### C BC ####[facility] [address] [id number]. Bhumi Lewis IG # 0.01 10e3/ul Normal 0.00-0.03 [facility] Comment on above: Performed By: #### C BC ####[facility] [address] [address]Dr. Bhumi Lewis IG % 0.2 % Normal 0.0-0.5 [facility] Comment on above: Performed By: #### C BC ####[facility] [address] [address]Dr. Bhumi Lewis LYMPH # 1.5 103/ul Normal 1.2-3.8 [facility] Comment on above: Performed By: #### C BC ####[facility] [address] [place], [place] [address]Dr. Bhumi Leiws Lymphocytes/100 WBC (Bld) 32.2 % Normal 20.5-60.0 [facility] Comment on above: Performed By: #### C BC ####[facility] [address] [address]Dr. Bhumi Lewis MANUAL DIFF REQ NO Normal [facility] Comment on above: Performed By: #### C BC ####[facility] [address] [place], [place] [address]Dr. Bhumi Lewis MCH (RBC) [Entitic mass] 31.7 pg Normal 26.7-34.0 [facility] Comment on above: Performed By: #### C BC ####[facility] [address] [place], [place] [address]Dr. Bhumi Lewis MCHC (RBC) [Mass/Vol] 32.2 g/dL Normal 29.9-35.2 [facility] Comment on above: Performed By: #### C BC ####[facility] [address] [id number]. Bhumi Lewis MCV (RBC) [Entitic vol] 98.3 fL Normal 81.0-99.0 [facility] Comment on above: Performed By: #### C BC ####[facility] [address] [id number]. Bhumi Lewis MONO # 0.4 103/ul Normal 0.3-0.8 [facility] Comment on above: Performed By: #### C BC ####[facility] [address] [id number]. Bhumi Lewis Monocytes/100 WBC (Bld) 7.4 % Normal 1.7-12.0 [facility] Comment on above: Performed By: #### C BC ####[facility] [address] [place], [place] [address]Dr. Bhumi Lewis NEUT # 2.7 103/ul Normal 1.4-6.5 [facility] Comment on above: Performed By: #### C BC ####[facility] [address] [id number]. Bhumi Lewis Neutrophils/100 WBC (Bld) 57.1 % Normal 43.0-75.0 [facility] Comment on above: Performed By: #### C BC ####[facility] [address] [address]Dr. Bhumi Lewis Platelet mean volume (Bld) [Entitic vol] 9.1 fL Critically low 9.5-13.5 [facility] Comment on above: Performed By: #### C BC ####[facility] [address] [id number]. Bhumi Lewis PLT 243 103/ul Normal 150-450 [facility] Comment on above: Performed By: #### C BC ####[facility] [address] [id number]. Bhumi Lewis RBC 4.23 106/ul Normal 4.20-5.40 [facility] Comment on above: Performed By: #### C BC ####[facility] [address] [place], [place] [address]Dr. Bhumi Lewis WBC 4.8 103/ul Normal 4.0-11.0 [facility] Comment on above: Performed By: #### C BC ####[facility] [address] [id number] Lewis GLYCOHEMOGLOBIN A1Con 2021 ADA RECOMMENDATION SEE BELOW Normal [facility] Comment on above: Result Comment: ADA RECOMMENDED LIMIT 4.0 - 6.0 ADA THERAPEUTIC TARGET < 7.0 ACTION SUGGESTED > 7.0 Performed By: #### A 1C ####[facility] [address] [address]DrSuzy Lewis Glucose [Mass/Vol] 120 mg/dL Normal [facility] Comment on above: Performed By: #### A 1C ####[facility] [address] [address]DrSuzy Lewis HbA1c (Bld) [Mass fraction] 5.8 % Normal 4.5-6.2 [facility] Comment on above: Performed By: #### A 1C ####[facility] [address] [address]DrSuzy Lewis IRONon 12-02-2021 Iron [Mass/Vol] 95.0 ug/dL Normal 50.0-170.0 [facility] Comment on above: Performed By: #### I HIWOT #### [facility] [address] [address] [address] Bhumi Lewis LIPID PROFILEon 12-02-2021 CHOL-HDL RATIO NORM SEE BELOW Normal [facility] Comment on above: Result Comment: 3.3 - 4.4 LOW RISK 4.4 - 7.1 AVERAGE RISK 7.1 - 11.0 MODERATE RISK >11.0 HIGH RISK Performed By: #### T SH, BNP, CMP, LIPID ####[facility] [address] [id number] Lewis Cholesterol [Mass/Vol] 218 mg/dL Critically high <=200 [facility] Comment on above: Performed By: #### T SH, BNP, CMP, LIPID ####[facility] [address] [id number]. Bhumi Lewis Cholesterol in HDL [Mass/Vol] 62 mg/dL Critically high 40-60 [facility] Comment on above: Performed By: #### T SH, BNP, CMP, LIPID ####[facility] [address] [place], [place] [address]Fv. Bhumi Lewis Cholesterol in LDL [Mass/Vol] 126.6 mg/dL Normal [facility] Comment on above: Performed By: #### T SH, BNP, CMP, LIPID ####[facility] [address] [id number]. Bhumi Lewis Cholesterol.total/Ch olesterol in HDL [Mass ratio] 3.5 {ratio} Normal [facility] Comment on above: Performed By: #### T SH, BNP, CMP, LIPID ####[facility] [address] [id number]. Bhumi Lewis HDL NORMAL > or = 60 mg/dl - LO W CARDIOVASCULAR RISK <40 mg/dl - HIGH CARDIOVASCULAR RISK Normal [facility] Comment on above: Performed By: #### T SH, BNP, CMP, LIPID ####[facility] [address] [id number]. Bhumi Lewis LDL CALC NORMAL SEE BELOW Normal [facility] Comment on above: Result Comment: <100 mg/dl OPTIMAL 100 - 129 mg/dl NEAR OR ABOVE OPTIMAL 130 - 159 mg/dl BORDERLINE HIGH 160 - 189 mg/dl HIGH >190 mg/dl VERY HIGH Performed By: #### T SH, BNP, CMP, LIPID ####[facility] [address] [place] [id number]. Bhumi Lewis Triglyceride [Mass/Vol] 147 mg/dL Normal <=150 [facility] Comment on above: Performed By: #### T SH, BNP, CMP, LIPID ####[facility] [address] [place] [id number]. Bhumi Lewis VLDL CALC 29.4 mg/dL Normal [facility] Comment on above: Performed By: #### T SH, BNP, CMP, LIPID ####[facility] [address] [place] [address]Dr. Bhumi Lewis PROF 14(COMP METB)on 022 Albumin [Mass/Vol] 3.6 g/dL Normal 3.4-5.0 [facility] Comment on above: Performed By: #### T SH, BNP, CMP, LIPID ####[facility] [address] [place] [address]Dr. Bhumi Lewis Albumin/Globulin [Mass ratio] 1.0 {ratio} Normal [facility] Comment on above: Performed By: #### T SH, BNP, CMP, LIPID ####[facility] [address] [place] [address]Dr. Bhumi Lewis ALP [Catalytic activity/Vol] 64 U/L Normal 46-116 [facility] Comment on above: Performed By: #### T SH, BNP, CMP, LIPID ####[facility] [address] [place], [place] [address]Dr. Bhumi Lewis ALT [Catalytic activity/Vol] 21 U/L Normal 14-59 [facility] Comment on above: Performed By: #### T SH, BNP, CMP, LIPID ####[facility] [address] [place], [place] [address]Dr. Bhumi Lewis Anion gap [Moles/Vol] 13.5 mmol/L Normal [facility] Comment on above: Performed By: #### T SH, BNP, CMP, LIPID ####[facility] [address] [place] [address]Dr. Bhumi Lewis AST [Catalytic activity/Vol] 21 U/L Normal 15-37 [facility] Comment on above: Performed By: #### T SH, BNP, CMP, LIPID ####[facility] [address] [place], [place] [address]Dr. Bhumi Lewis Bilirubin [Mass/Vol] 0.4 mg/dL Normal 0.2-1.0 [facility] Comment on above: Performed By: #### T SH, BNP, CMP, LIPID ####[facility] [address] [place] [address]Dr. Bhumi Lewis Calcium [Mass/Vol] 9.0 mg/dL Normal 8.5-10.1 [facility] Comment on above: Performed By: #### T SH, BNP, CMP, LIPID ####[facility] [address] [place] [address]Dr. Bhumi Lewis Chloride [Moles/Vol] 105 mmol/L Normal 98-107 [facility] Comment on above: Performed By: #### T SH, BNP, CMP, LIPID ####[facility] [address] [place] [address]Dr. Bhumi Lewis CO2 [Moles/Vol] 24.7 mmol/L Normal 21.0-32.0 [facility] Comment on above: Performed By: #### T SH, BNP, CMP, LIPID ####[facility] [address] [place] [address]Dr. Bhumi Lewis Creatinine [Mass/Vol] 1.04 mg/dL Critically high 0.55-1.02 [facility] Comment on above: Performed By: #### T SH, BNP, CMP, LIPID ####[facility] [address] [place] [address]Dr. Bhumi Lewis EGFR-AF GHANAIAN >60 Normal >=60 [facility] Comment on above: Performed By: #### T SH, BNP, CMP, LIPID ####[facility] [address] [place] [address]Dr. Bhumi Lewis EGFR-NON AF GHANAIAN 52 mL/min/1.73m2 Critically low >=60 [facility] Comment on above: Performed By: #### T SH, BNP, CMP, LIPID ####[facility] [address] [place] [address]Dr. Bhumi Lewis Globulin (S) [Mass/Vol] 3.6 g/dL Normal [facility] Comment on above: Performed By: #### T SH, BNP, CMP, LIPID ####[facility] [address] [place] [address]Dr. Bhumi Lewis Glucose [Mass/Vol] 96 mg/dL Normal 74-106 [facility] Comment on above: Performed By: #### T SH, BNP, CMP, LIPID ####[facility] [address] [place] [address]Dr. Bhumi Leiws Potassium [Moles/Vol] 4.2 mmol/L Normal 3.5-5.1 [facility] Comment on above: Performed By: #### T SH, BNP, CMP, LIPID ####[facility] [address] [place] [address]Dr. Bhumi Lewis Protein [Mass/Vol] 7.2 g/dL Normal 6.4-8.2 [facility] Comment on above: Performed By: #### T SH, BNP, CMP, LIPID ####[facility] [address] [place] [address]Dr. Bhumi Lewis Sodium [Moles/Vol] 139 mmol/L Normal 136-145 [facility] Comment on above: Performed By: #### T SH, BNP, CMP, LIPID ####[facility] [address] [place] [address]Dr. Bhumi Lewis Urea nitrogen [Mass/Vol] 20.0 mg/dL Critically high 7.0-18.0 [facility] Comment on above: Performed By: #### T SH, BNP, CMP, LIPID ####[facility] [address] [place] [address]Dr. Bhumi Lewis Urea nitrogen/Creatinine [Mass ratio] 19.2 mg/mg Normal [facility] Comment on above: Performed By: #### T SH, BNP, CMP, LIPID ####[facility] [address] [place] [address]Dr. Bhumi Lewis TSHon 12-02-2021 TSH 2.178 uIU/mL Normal 0.358-3.740 [facility] Comment on above: Performed By: #### T SH, BNP, CMP, LIPID ####[facility] [address] [place] [address]Dr. 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[employer] Ambulatory Visit Summaryon 0 10-08-2021 Ambulatory Visit Summary MAGALI ALDRICH :1950 Visit Date:10/08/2021 Ambulatory Visit Instructions Your Diagnosis Urethral caruncle Vaginal atrophy Pelvic pain Cervical polyp Tests Performed Urnls Dip Stick Auto w/o Microscopy POC 07847 Your Care Team Attending Physician - Lorena [...] URO When: Where: [address] [place] [phone] Medications What How Much When Instructions Unchanged [...] Urnls Dip Stick Auto w/o Microscopy POC 66264 (10/08/2021) Bilirubin Urine Dipstick - Negative Blood Urine Dipstick - Trace-intact Glucose Urine Dipstick - Negative Ketones Urine Dipstick - Negative Leukocytes Urine Dipstick - Negative Nitrite Urine Dipstick - Negative Protein Urine Dipstick - Negative Specific [place] Urine Dipstick - >=1.030 Urine Appearance Urine [...] these instructions at home: Medicines ? Take aiig-inm-ruwhvgd and prescription medicines only as told by [...] belly pain for any changes. ? Take kecc-tqq-fleofqv and prescription medicines only as told by your do (more content not included)... Normal [facility] Patient Educationon 10-09-19 22 Patient Education Gastroenterology Abdominal Pain, Adult Many things can cause belly (abdominal) pain. Most times, belly pain is not dangerous. Many cases of belly pain can be watched and treated at home. Sometimes, though, belly pain is serious. Your doctor will try to find the cause of your belly pain. Follow these instructions at home: Medicines ? Take gofx-mpj-pmcnrzx and prescription medicines only as told by [...] belly pain for any changes. ? Take bwth-htx-mhwueju and prescription medicines only as told by [...] 09/14/2008 Document Revised: 08/07/2019 Document Reviewed: 08/07/2019 Phreesia Patient Education ? 2019 KeepGo. Mehul [facility] Urology Office/Clinic Noteon 10-08-2021 Urology Office/Clinic [...] this time. She has not seen her substance abuse rn as of yet for the cervical polyp. [...] Noted on vaginoscopy has not seen her substance abuse rn as of yet for the cervical polyp. Educated pt that she needs to see her ELECTRICIAN STATION ASSISTANT to f/u with this. Follow-up With When Contact Information Jesus WALSH, Lorena Morocho, URL, [facility] [address], [place] [phone] Additional Instructions: PRN Patient Education Abdominal Pain, Adult, Vcdh-kj-Llyh I, Beba Rodriguez, personally scribed for Dr. [...] Protein Urine Dipstick: Negative (10/08/21 09:46:00) Specific [place] Urine Dipstick: >=1.030 (10/08/21 09:46:00) Urine Appearance Urine Dipstick: Clear (10/08/21 09:46:00) Urine Color Urine Dipstick: Yellow (10/08/21 09:46:00) Urobilinogen Urine Dipstick: Normal 0.2-1 EU/dl (10/08/21 0 (more content not included)... [facility] Comment on above: Result Comment: Elec tronically Signed By: Lorena Lee MD\.br\Date and Time Signed: 10/08/21 10:13 EDT\.br\Electronically Co-Signed By: Beba Rodriguez MA\.br\Date and Time Co-Signed: 10/08/21 10:06 EDT Consent for Procedure/Surger yon 06-24-2021 Consent for Procedure/Surgery [id number] .00CD:127 [facility] Urology Office/Clinic Noteon 06-24-2021 Urology Office/Clinic [...] pain) Improved on topical estrogen. Ordered: Cystourethroscopy 78742 4. Cervical polyp (N84.1: Polyp of cervix [...] denies prior gynecologic surgeries or prior abnormal ELECTRICIAN STATION ASSISTANT workups. Denies vaginal bleeding or spotting. Pelvic pain improved now on topical estrogen, however given new findings on vaginoscopy, recommend further evaluation with Dumbwaiter Operator. Normal [facility] Comment on above: Result Comment: Elec tronically Signed By: Jesus WALSH, Lorena Morocho\.br\Date and Time Signed: 06/24/21 09:27 EDT Formson 06-12-2021 Forms [id number] .00CD:127 [facility] Physician Referralon 022 Physician Referral [id number]:127 Normal [facility] Vital Signs Date Time Vital Sign Value Performing Clinician Lavern bangura 04-24-2022 14:15-0500 Blood Pressure Location Noam NILL [facility] 04-24-2022 14:15-0500 Diastolic blood pressure 76 mm[Hg] Noam NILL [facility] 04-24-2022 14:15-0500 Heart rate 68 /min Noam NILL [facility] 04-24-2022 14:15-0500 Respiratory rate 16 /min Noam NILL [facility] 04-24-2022 14:15-0500 Systolic blood pressure 120 mm[Hg] Noam NILL [facility] 10-08-2021 09:47-0400 Blood Pressure [facility]-08[facility]21 09:47-0400 Diastolic blood pressure 67 mm[Hg] [facility] 10-08-2021 09:47-0400 Heart rate 61 /min [facility] 10-08-2021 09:47-0400 Respiratory rate 16 /min Lorena Lue [facility] 47 10-08-2021 09:47-0400 Systolic blood pressure 130 mm[Hg] Lorena Lue [facility] 47 Encounters Encounter Date Encounter Type Care Provider Facility Start: 07-25-2022 End: 07-25-[address] KERRIE HAMMER . Facility:[facility] Start: 07-24-2022 End: 07-25-[address] KERRIE HAMMER . Facility:[facility] Start: 05-27-2022 End: 05-28-2022 ambulatory Noam Brittani CORAL Facility:CD:[id number] Start: 04-24-2022 End: 04-25-2022 ambulatory Kerrie Hammer Facility: [facility] Start: 04-24-2022 End: 04-24-2022 Patient encounter procedure Noam LEDESMA [facility] Start: 02-25-2022 End: 02-26-[address] KERRIE HAMMER . Facility:[facility] Start: 02-13-2022 ambulatory Kerrie Hammer Facility:[facility] Start: 12-02-2021 End: 12-03-[address] KERRIE HAMMER . Facility: Start: 10-08-2021 End: 10-09-2021 ambulatory Lorena Lee Facility:[facility] Start: 10-08-2021 End: 10-08-2021 Patient encounter procedure Lorena Lee [facility] Start: 10-03-2021 ambulatory Lorena Lee Facility:[facility] Start: 09-26-2021 ambulatory Lorena Lee Facility:[facility] [place] Start: 06-24-2021 ambulatory [...] Provider Fa cili 01-08-2022 SARS-CoV-2 (COVID-19 ) mRNAMUL.ORD![id number] Noam LEDESMA [facility] 12-12-2021 influenza virus vaccine, unspecified formulation Noam LEDESMA [facility] 07-22-2021 SARS-CoV-2 (COVID-19 ) mRNA-1273 vaccine Noam VALENCIAL [facility] [place] 02-12-2021 SARS-CoV-2 (COVID-19 ) mRNA-1273 vaccine Noam VALENCIAL [facility] [place] 01-10-2021 SARS-CoV-2 (COVID-19 ) Ad26 vaccine, recombinant Lorena Lue [facility] 06-10-2020 SARS-CoV-2 (COVID-19 ) Ad26 vaccine, recombinant Lorena Lue [facility] 05-13-2020 SARS-CoV-2 (COVID-19 ) Ad26 vaccine, recombinant Lorena Lue [facility] Payers Date Payer Category Payer Medicare [id number] 1961 Unknown [id number] 1950 Unknown [id number] 2.16.8 [id number] 1950 Unknown [id number] 2.16.8 40.1.948757.3.579.2.727 1950 Unknown [id number] 2.16.8 40.1.652515.3.579.2.727 1950 Unknown [id number] 2.16.8 40.1.027909.3.579.2.727 1950 Unknown [id number] 2.16.8 40.1.603989.3.579.2.727 1950 Unknown [id number] 2.16.8 40.1.698931.3.579.2.727 1950 Unknown [id number] 2.16.8 40.1.408634.3.579.2.727 1950 Unknown [id number] 2.16.8 40.1.351825.3.579.2.727 1950 Unknown [id number] 2.16.84 0.1.909699.3.579.2.593 1950 Unknown [id number] 2.16.84 0.1.214751.3.579.2.593 1950 Unknown [id number] 2.16.84 0.1.551976.3.579.2.593 1950 Unknown [id number] 2.16.84 0.1.984632.3.579.2.593 1950 Unknown [id number] 2.16.84 0.1.646873.3.579.2.593 Medicare [id number] Social History Date Type Detail Facility Start: 06-04-2021 End: 04-24-2022 Tobacco smoking status Never smoked tobacco (finding) [facility] Tobacco smoking status Never [facility] Sex Assigned At Female [facility] Functional Status Date Assessment Result Facility 04-24-2022 Functional Status N/A [facility] 10-08-2021 Functional Status N/A [facility] Clinical Note 05-27-2022 Note Date & [...] good condition. CC: Kerrie Hammer M.D. [facility] Clinical Note 04-24-2022 Note Date & [...] 1 tab(s), Oral, Bedtime Flonase 0.05 mg/inh [place], 1 spray(s), Nasal, BID ICaps AREDS 2 [...] Mother. Immunizations Vaccine Date Status SARS-CoV-2 (COVID-19) mRNAMUL.ORD![id number] 01/08/2022 Recorded influenza virus vaccine, inactivated 12/12/2021 Recorded SARS-CoV-2 (COVID-19) mRNA-1273 vaccine 07/22/2021 Recorded SARS-CoV-2 (COVID-19) mRNA-1273 vaccine 02/12/2021 Recorded SARS-CoV-2 (COVID-19) Ad26 vaccine 01/2021 Recorded SARS-CoV-2 (COVID-19) Ad26 vaccine 06/2020 Recorded SARS-CoV-2 (COVID-19) Ad26 vaccine 05/2020 Recorded [facility] Comment on above: Result Comment: Elec tronically Signed By: CORAL WALSH, Noam Shen\Date and Time Signed: 04/24/22 14:42 EST Hospital Discharge instructions 10-08-2021 Note Date & Type Note Facility 10-08-2021 Hospital Discharg e instructions Patient Education 10/08/2021 10:00:26 Abdominal Pain, Adult, Lwrx-ey-Ggzf Abdominal Pain, Adult Many things can cause belly (abdominal) pain. Most times, belly pain is not dangerous. Many cases of belly pain can be watched and treated at home. Sometimes, though, belly pain is serious. Your doctor will try to find the cause of your belly pain. Follow these instructions at home: Medicines Take wywb-gvw-sleoauz and prescription medicines only as told by [...] your belly pain for any changes. Take xwtk-pyx-nzjkuaw and prescription medicines only as told by [...] 09/14/2008 Document Revised: 08/07/2019 Document Reviewed: 08/07/2019 Phreesia Patient Education 2019 KeepGo. Follow Up Care 09/04/2021 10:44:24 With:Jesus WALSH, GIGI StoryL, [facility] Address: [address] [place] [address]- [phone] When: Unknown [facility] Clinical Note 06-24-2021 Note Date & [...] including vitamins, herbs, eye drops, creams, and bynx-lzc-qrohgvn medicines. ? Any problems you or family [...] tells you to take them. ? Taking sqfl-lmv-fkavmfe medicines, vitamins, herbs, and supplements. ? Follow [...] these instructions at home: Medicines ? Take rhki-wmd-cuerlnv and prescription medicines only as told by [...] This is importa (more content not included)... [facility] Evaluation + Plan note Note Date & Type Note Facility Evaluation + Plan note No data available for this section [facility] Hospital Discharge instructions Note Date & Type Note Facility Hospital Discharge instructions No data available for this section [facility] Progress note Note Date & Type Note Facility Progress note No data available for this section [facility] Summary Purpose Family History No Family History Records FoundNo Family History Records FoundNo Family History Records Found Advance Directives No Advanced Directives Records FoundNo Advanced Directives Records FoundNo Advanced Directives Records Found Additional Source Comments Care Team (unrecognized sect ion and content) Personnel Name: Kerrie Hammer MD Address: [address] [place] [address] Personnel Name: Kerrie Hammer MD Address: Address: [address] [place] [address] INFORMATION SOURCE (unrecogn ized section and content) DATE CREATED AUTHOR 10/11/2021 [facility] dical Specialist DATE CREATED AUTHOR AUTHOR'S ORGANIZ ATION 06/05/2022 [facility] DATE CREATED AUTHOR AUTHOR'S ORGANIZ [...] BE BASED ON THE PRIMARY CLINICAL RECORDS. [facility] [employer] provides no warranty or guarantee of the accuracy or completeness of information in this document.
[2024-02-22 15:17] LABS: Internal Control Within Normal Limits; Occult Blood Negative
== END 2024-02-22 08:14 | disposition home or self-care (01) ==
LOC: LAB 08:13
PROVIDERS: PCP Family Medicine; Visit Provider Family Medicine
DX: E78.00 Pure hypercholesterolemia, unspecified (principal); R53.83 Other fatigue; R42 Dizziness and giddiness; E28.39 Other primary ovarian failure
CPT/HCPCS: G0328

== ENCOUNTER 2024-03-01 08:49 | Outpatient (OUT) | payer MEDICARE, SELFPAY ==
--- NOTE | 2024-03-01 08:54 | XR_ITS ---
[address] [address] Patient Name: MAGALI ALDRICH MRN: [id number] date: 1950 Sex: F Assigned Patient Location: [facility] Current Patient Location: Accession/Order Number: [id number] Exam Date: 03/01/2024 09:00 Report Date: 03/02/2024 04:20 At the request of: KERRIE ALVARES Procedure: XR DEXA axial skeleton EXAMINATION: XR DEXA axial skeleton HISTORY: Screening COMPARISON: DEXA bone densitometry 02/25/2022 TECHNIQUE: Dual-energy X-ray absorptiometry (DXA) was performed. FINDINGS: SPINE ANALYSIS: Average bone mineral density is 1.211 g/cm2. T-score (standard deviation relative to young adult mean): 0.3 . +4.9% change since prior study. HIP ANALYSIS: Lowest bone mineral density is within the right femoral neck, 1.001 g/cm2. T-score (standard deviation relative to young adult mean): -0.3 . +6.9% change since prior study. XR/XR DEXA axial skeleton IMPRESSION: World Health Organization Classification: Normal - Low Fracture Risk FRAX: Cannot be calculated. Pharmacologic treatment recommendations * No uniform recommendation applies to all patients. Management plans must be individualized. * Consider initiating pharmacologic treatment in postmenopausal women and men >= 50 years of age who have the following: Primary fracture prevention: * T-score <= - 2.5 at the femoral neck, total hip, lumbar spine, 33% radius (some uncertainty with existing data) by DXA. * Low bone mass (osteopenia: T-score between - 1.0 and - 2.5) at the femoral neck or total hip by DXA with a 10-year hip fracture risk >= 3% or a 10-year major osteoporosis-related fracture risk >= 20% (i.e., clinical vertebral, hip, forearm, or proximal humerus) based on the US-adapted FRAXregistered model. Secondary fracture prevention: * Fracture of the hip or vertebra regardless of BMD [4, 5]. * Fracture of proximal humerus, pelvis, or distal forearm in persons with low bone mass (osteopenia: T-score between - 1.0 and - 2.5). The decision to treat should be individualized in persons with a fracture of the proximal humerus, pelvis, or distal forearm who do not have osteopenia or low BMD [12, 13]. Octavio MS, Rosemarie SL, Lanie KL, Prema EM, Leonard KG, AJ, Rose ES. The clinician's guide to prevention and treatment of osteoporosis. Osteoporos Int. 2021;33(10):3991-4167. doi: 10.1007/w54723-769-86687-n. Epub 2021Aug 07. Erratum in: Osteoporos Int. 2021Nov 06;: PMID: [id number]; PMCID: [id number]. Electronically authenticated by: RUTH CARTER Date: 03/02/2024 04:20
--- OUTSIDE RECORDS SUMMARY | 2024-03-01 09:02 | XMS_ITS | CCD ---
Author Organization [facility] Care Team Providers Care 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 Name Role Phone Kerrie Hammer Primary Care Physician Kerrie Hammer Referring Unavailable ANNIELNoam Attending Unavailable ANNIELNoam Attending Unavailable LueLorena Attending Unavailable LueLorena Attending Unavailable Lorena Lee Attending Unavailable Lorena Lee Attending Unavailable HOY ., DR SY Admitting Unavailable HOY ., DR SY Attending Unavailable HOY ., DR SY Consulting Unavailable HOY ., DR SY Primary Care Unavailable NILL ., DR JEONG Attending Unavailable NILL ., DR JEONG Consulting Unavailable NILL ., DR JEONG Admitting Unavailable HOY ., DR SY Primary Care Unavailable YARITZA II, TYLER Consulting Unavailable SHANTHI VÁZQUEZ Consulting Unavailable HOY ., DR SY Admitting Unavailable HOY ., DR SY Attending Unavailable HOY ., DR SY Consulting Unavailable HOY ., DR SY Primary Care Unavailable ZIEBER, DR RUTH Peter Consulting Unavailable HOY ., DR SY Primary Care Unavailable HOY ., DR SY Admitting Unavailable HOY ., DR SY Attending Unavailable HOY ., DR SY Consulting Unavailable LELAND, DR KENN Loyd Consulting Unavailable HOY ., DR SY Primary Care Unavailable HOY ., DR SY Admitting Unavailable HOY ., DR SY Attending Unavailable HOY ., DR SY Consulting Unavailable ALIX PONCE Attending Unavailable KERRIE HAMMER Referring Unavailable Kerrie Hammer MD Primary Care Provider [phone] Allergies Allergy Classification Reported Allergen(s) Allergy Type Date of Onset Reaction(s) Facility (6 sources) Pseudoephedrine; Translations: [pseudoephedrine] Drug Allergy 4 Eruption (morphologic abnormality), Rash [facility] (3 sources) Sulfonamides (Antibiotic); Translations: [sulfa drugs] Drug allergy Unknown (qualifier value), Eruption of skin (disorder) [facility] (1 source) Pseudoephedrine Drug Allergy [facility] (1 source) Sulfonamides (Antibiotic) Drug allergy (disorder) [facility] (3 sources) Sulfonamides (Antibiotic) Drug Allergy 3 Rash [facility] Medications Current Medications Medication Drug Class(es) Dates Sig (Normalized) Sig (Original) cetirizine hydrochloride 10 mg oral tablet (4 sources) Histamine-1 Receptor Antagonist Start: 04-08-2022 cetirizine (ZyrTEC) 10 MG tablet Take 10 mg by mouth 04/08/2022 Active fluticasone propionate 0.05 mg/actuat metered dose nasal spray (6 sources) Corticosteroid Start: 04-08-2022 fluticasone (Flonase) 50 MCG/ACT nasal spray Nasal for 90 04/08/2022 Active Start: 04-08-2022 Flonase 0.05 m g/inh [place] 1 spray(s), Nasal, BID, Refill(s) 0 Start Date: 04/08/22 Status: Ordered Start: 06-04-2021 fluticasone pr opionate Inhalation, Refills(s) 0 Start Date: 06/04/21 Status: Ordered Start: 06-04-2021 fluticasone fu roate 50 mcg inhalation powder Inhalation, q24hr, Refills(s) 0 Start Date: 06/04/21 Status: Ordered hydroCHLOROthiazide 25 mg / triamterene 37.5 mg oral capsule (3 sources) Potassium-sparing Diuretic, Thiazide Diuretic Start: 02-09-2024 take 1 capsule by mouth once daily triamterene-hydroCHLOROthiazide (Dyazide) 37.5-25 MG capsule Take 1 capsule by mouth Daily 02/09/2024 Active ICaps AREDS 2 (2 sources) Start: 06-04-2021 ICaps AREDS 2 Refill(s) 0 St art Date: 06/04/21 Status: Ordered liothyronine sodium 0.005 mg oral tablet (3 sources) l-Triiodothyronine Start: 02-21-2024 liothyronine (Cytomel) 5 MCG tablet 1 (one) time each day at the same time 02/21/2024 Active meloxicam 15 mg oral tablet (3 sources) Nonsteroidal Anti-inflammatory Drug Start: 11-18-2023 End: 02-29-2024 take 1 tablet by mouth once daily meloxicam (Mobic) 15 MG tablet Take 15 mg by mouth Daily 11/18/2023 02/29/2024 Discontinued (Therapy completed) Multiple Vitamins-Minerals (ICaps) capsule (3 sources) take 1 capsule by mouth in the morning Multiple Vitamins-Minerals (ICaps) capsule Take 1 capsule by mouth in the morning. Active predniSONE (1 source) Start: 10-08-2021 predniSONE Oral, Daily, Refills(s) 0 Start Date: 10/08/21 Status: Ordered simvastatin 20 mg oral tablet (5 sources) HMG-CoA Reductase Inhibitor Start: 06-04-2021 take 1 mg by mouth once daily at bedtime simvastatin 20 mg Tab mg tab(s), Oral, Once a day (at bedtime), Refills(s) 0 Start Date: 06/04/21 Status: Ordered tiZANidine 4 mg oral tablet (3 sources) Central alpha-2 Adrenergic Agonist Start: 07-12-2023 End: 02-29-2024 take 1 tablet by mouth at bedtime tiZANidine (Zanaflex) 4 MG tablet Take 4 mg by mouth at bedtime 07/12/2023 02/29/2024 Discontinued (Therapy completed) Problems Active Problems Problem Classification Problem Date Documented Da te Episodic/Chronic Abdominal pain (3 sources) Pelvic and perineal pain; Translations: [Pelvic and perineal pain] Onset: 10-08-2021 Episodic Asthma (4 sources) Asthma; Translations: [Unspecified asthma, uncomplicated] Onset: 02-24-2024 04-08-2022 Chronic Conditions associated with dizziness or vertigo (2 sources) Benign paroxysmal positional vertigo; Translations: [Benign paroxysmal vertigo, right ear] 02-29-2024 Episodic Congestive heart failure; nonhypertensive (1 source) Unspecified diastolic (congestive) heart failure; Translations: [UNSPECIFIED DIASTOLIC HEART FAILURE] Onset: 07-30-2022 Chronic Disorders of lipid metabolism (11 sources) Hypercholesterolemia ; Translations: [Hyperlipidemia] Onset: 05-28-2022 [...] [OTHER FATIGUE] Onset: 07-25-2022 Episodic Menopausal disorders (10 sources) Atrophic vaginitis; Translations: [Postmenopausal atrophic vaginitis] Onset: 10-08-2021 Chronic Nutritional deficiencies (4 sources) Vitamin D deficiency, unspecified; Translations: [VITAMIN D DEFICIENCY UNSPECIFIED] Onset: 12-02-2021 Chronic Osteoarthritis (6 sources) Arthritis; Translations: [Unspecified osteoarthritis, unspecified site] Onset: 05-28-2022 06-04-2021 Chronic Other aftercare (1 source) Other residential (current) drug therapy; Translations: [OTH NURSING HOME CURRENT DRUG THERAPY] Onset: 05-28-2022 Episodic Other connective tissue disease (3 sources) Full thickness rotator cuff tear; Translations: [Complete rotator cuff tear or rupture of left shoulder, not specified as traumatic] Onset: 02-24-2024 02-24-2024 Episodic Other diseases of bladder and urethra (6 sources) Urethral caruncle; Translations: [Urethral caruncle] Onset: 10-08-2021 Episodic Other diseases of veins and lymphatics (4 sources) Venous insufficiency of leg; Translations: [Venous insufficiency (chronic) (peripheral)] Onset: 02-24-2024 04-08-2022 Episodic Other diseases of veins and lymphatics (1 source) Other specified disorders of veins; Translations: [OTHER SPECIFIED DISORDERS OF VEINS] Onset: 05-28-2022 Episodic Other diseases of veins and lymphatics (1 source) Venous insufficiency (chronic) (peripheral); Translations: [VENOUS INSUFF CHRONIC PERIPHERAL] Onset: 05-28-2022 Episodic Other ear and sense organ disorders (2 sources) Sensorineural hearing loss, bilateral; Translations: [Sensorineural hearing loss, bilateral] 02-29-2024 Chronic Other ear and sense organ disorders (2 sources) Bilateral tinnitus; Translations: [Tinnitus, bilateral] 02-29-2024 Episodic Other female genital disorders (1 source) Adenomatous polyp of cervix; Translations: [Polyp of cervix uteri] Onset: 10-08-2021 Episodic Other female genital disorders (5 sources) Polyp of cervix; Translations: [Polyp of cervix uteri] Onset: 02-24-2024 06-24-2021 Episodic Other nervous system disorders (3 sources) Carpal tunnel syndrome; Translations: [Carpal tunnel syndrome, unspecified upper limb] Onset: 11-10-2022 11-10-2022 Chronic Other nutritional; endocrine; and metabolic disorders (1 source) Body mass index 30+ - obesity 06-04-2021 Chronic Other nutritional; endocrine; and metabolic disorders (4 sources) Body mass index 40+ - severely obese; Translations: [Body mass index (BMI) 40.0-44.9, adult] Onset: 11-10-2022 04-24-2022 Chronic Other screening for suspected conditions (not mental disorders or infectious disease) (9 sources) Screening for malignant neoplasm of colon done; Translations: [Encounter for screening for malignant neoplasm of colon] Onset: 04-24-2022 Episodic Other upper respiratory disease (4 sources) Seasonal allergic rhinitis; Translations: [Other seasonal allergic rhinitis] Onset: 02-24-2024 04-08-2022 Chronic Prolapse of female genital organs (2 sources) Cystocele 06-24-2021 Chronic Residual codes; unclassified (4 sources) Dependent edema; Translations: [Edema, unspecified] Onset: 02-24-2024 04-08-2022 Episodic Residual codes; unclassified (1 source) [...] OTH PART DIGESTV TRACT] Onset: 05-28-2022 Episodic Thyroid disorders (3 sources) Hypothyroidism; Translations: [Hypothyroidism, unspecified] Onset: 02-24-2024 02-24-2024 Chronic Unclassified (1 source) Patient encounter status 04-24-2022 [...] PCR Negative Normal NEGATIVE [facility] Comment on above: Performed By: #### C DIFPOC #### [facility] [address] [place] [address] Dr. Bhumi Lewis BNPon 07-24-2022 Natriuretic peptide B (Bld) [Mass/Vol] 381.0 pg/mL Normal <=900.0 [facility] Comment on above: Performed By: #### T SH, LIVER, T7, BNP, BMP #### [facility] [address] [address] [address] Bhumi Lewis CBC AUTO DIFFon 07-24-2022 BASO # 0.0 103/ul Normal 0.0-0.1 [facility] Comment on above: Performed By: #### C BC #### [facility] [address] [place] [address] Dr. Bhumi Lewis Basophils/100 WBC (Bld) 0.4 % Normal 0.2-2.0 [facility] Comment on above: Performed By: #### C BC #### [facility] [address] [place] [address] Dr. Bhumi Lewis EO # 0.1 103/ul Normal 0.0-0.7 [facility] Comment on above: Performed By: #### C BC #### [facility] [address] [place] [address] Dr. Bhumi Lewis Eosinophils/100 WBC (Bld) 2.7 % Normal 0.9-7.0 [facility] Comment on above: Performed By: #### C BC #### [facility] [address] [place] [address] Dr. Bhumi Lewis Erythrocyte distribution width (RBC) [Ratio] 13.1 % Normal 11.0-15.0 [facility] Comment on above: Performed By: #### C BC #### [facility] [address] [place] [address] Dr. Bhumi Lewis Hematocrit (Bld) [Volume fraction] 40.0 % Normal 36.0-48.0 [facility] Comment on above: Performed By: #### C BC #### [facility] [address] [place] [address] Dr. Bhumi Lewis Hemoglobin (Bld) [Mass/Vol] 13.2 g/dL Normal 12.0-16.0 [facility] Comment on above: Performed By: #### C BC #### [facility] [address] [place] [address] Dr. Bhumi Lewis IG # 0.02 10e3/ul Normal 0.00-0.03 [facility] Comment on above: Performed By: #### C BC #### [facility] [address] [place] [address] Dr. Bhumi Lewis IG % 0.4 % Normal 0.0-0.5 [facility] Comment on above: Performed By: #### C BC #### [facility] [address] [place] [address] Dr. Bhumi Lewis LYMPH # 1.4 103/ul Normal 1.2-3.8 [facility] Comment on above: Performed By: #### C BC #### [facility] [address] [place] [address] Dr. Bhumi Lewis Lymphocytes/100 WBC (Bld) 30.3 % Normal 20.5-60.0 [facility] Comment on above: Performed By: #### C BC #### [facility] [address] [place] [address] Dr. Bhumi Lewis MANUAL DIFF REQ NO Normal [facility] Comment on above: Performed By: #### C BC #### [facility] [address] [place] [address] Dr. Bhumi Lewis MCH (RBC) [Entitic mass] 31.1 pg Normal 26.7-34.0 [facility] Comment on above: Performed By: #### C BC #### [facility] [address] [place] [address] Dr. Bhumi Lewis MCHC (RBC) [Mass/Vol] 33.0 g/dL Normal 29.9-35.2 [facility] Comment on above: Performed By: #### C BC #### [facility] [address] [place] [address] Dr. Bhumi Lewis MCV (RBC) [Entitic vol] 94.3 fL Normal 81.0-99.0 [facility] Comment on above: Performed By: #### C BC #### [facility] [address] [place] [address] Dr. Bhumi Lewis MONO # 0.4 103/ul Normal 0.3-0.8 [facility] Comment on above: Performed By: #### C BC #### [facility] [address] [place] [address] Dr. Bhumi Lewis Monocytes/100 WBC (Bld) 9.3 % Normal 1.7-12.0 [facility] Comment on above: Performed By: #### C BC #### [facility] [address] [place] [address] Dr. Bhumi Lewis NEUT # 2.6 103/ul Normal 1.4-6.5 [facility] Comment on above: Performed By: #### C BC #### [facility] [address] [place] [address] Dr. Bhumi Lewis Neutrophils/100 WBC (Bld) 56.9 % Normal 43.0-75.0 [facility] Comment on above: Performed By: #### C BC #### [facility] [address] [address] [address] Bhumi Lewis Platelet mean volume (Bld) [Entitic vol] 9.2 fL Critically low 9.5-13.5 [facility] Comment on above: Performed By: #### C BC #### [facility] [address] [place] [address] Dr. Bhumi Lewis PLT 249 103/ul Normal 150-450 [facility] Comment on above: Performed By: #### C BC #### [facility] [address] [address] [address] Bhumi Lewis RBC 4.24 106/ul Normal 4.20-5.40 [facility] Comment on above: Performed By: #### C BC #### [facility] [address] [place] [address] Dr. Bhumi Lewis WBC 4.5 103/ul Normal 4.0-11.0 [facility] Comment on above: Performed By: #### C BC #### [facility] [address] [place] [address] Dr. Bhumi Lewis FREE THYROXINE INDEX T7on FTI 2.18 Normal 1.30-4.50 [facility] Comment on above: Performed By: #### T SH, LIVER, T7, BNP, BMP #### [facility] [address] [place] [address] Dr. Bhumi Lewis T3U 33.0 % Normal 30.0-39.0 [facility] Comment on above: Performed By: #### T SH, LIVER, T7, BNP, BMP #### [facility] [address] [place] [address] Dr. Bhumi Lewis T4 [Mass/Vol] 6.60 ug/dL Normal 4.80-13.[address] [facility] Comment on above: Performed By: #### T SH, LIVER, T7, BNP, BMP #### [facility] [address] [place] [address] Dr. Bhumi Lewis LIVER PROFILEon 07-24-2022 Albumin [Mass/Vol] 3.4 g/dL Normal 3.4-5.0 [facility] Comment on above: Performed By: #### T SH, LIVER, T7, BNP, BMP #### [facility] [address] [place] [address] Dr. Bhumi Lewis Albumin/Globulin [Mass ratio] 0.9 {ratio} Normal [facility] Comment on above: Performed By: #### T SH, LIVER, T7, BNP, BMP #### [facility] [address] [place] [address] Dr. Bhumi Lewis ALP [Catalytic activity/Vol] 66 U/L Normal 46-116 [facility] Comment on above: Performed By: #### T SH, LIVER, T7, BNP, BMP #### [facility] [address] [place] [address] Dr. Bhumi Lewis ALT [Catalytic activity/Vol] 26 U/L Normal 14-59 [facility] Comment on above: Performed By: #### T SH, LIVER, T7, BNP, BMP #### [facility] [address] [place] [address] Dr. Bhumi Lewis AST [Catalytic activity/Vol] 21 U/L Normal 15-37 [facility] Comment on above: Performed By: #### T SH, LIVER, T7, BNP, BMP #### [facility] [address] [place] [address] Dr. Bhumi Lewis BILI, CONJUGATED 0.1 mg/dL Normal 0.0-0.2 [facility] Comment on above: Performed By: #### T SH, LIVER, T7, BNP, BMP #### [facility] [address] [place] [address] Dr. Bhumi Lewis Bilirubin [Mass/Vol] 0.2 mg/dL Normal 0.2-1.0 [facility] Comment on above: Performed By: #### T SH, LIVER, T7, BNP, BMP #### [facility] [address] [place] [address] Dr. Bhumi Lewis Globulin (S) [Mass/Vol] 4.0 g/dL Normal [facility] Comment on above: Performed By: #### T SH, LIVER, T7, BNP, BMP #### [facility] [address] [place], [place] [address] Dr. Bhumi Lewis Protein [Mass/Vol] 7.4 g/dL Normal 6.4-8.2 [facility] Comment on above: Performed By: #### T SH, LIVER, T7, BNP, BMP #### [facility] [address] [place], [place] [address] Dr. Bhumi Lewis MG MAMM SCREEN 3D SANTANA CADon 07-24-2022 MG MAMM SCREEN 3D SANTANA CAD Patient: CORI LEES Exam Date: 07/24/2022 : 1950 Gender:F Ordering : DR KERRIE HAMMER . Admission #: [id number] Family : Order #: [id number] CLICK HERE TO VIEW EXAM RADIOLOGY REPORT [...] colon cancer at age 88. LOCATION: [facility] BREAST COMPOSITION: Almost entirely fatty. FINDINGS: DIAGNOSTIC [...] on 07/27/2022 at 09:51 Approved by: Kenn Paitner MD on 07/27/2022 at 09:52 Normal [facility] PROF CHEM 8 (BAS METB)on Anion gap [Moles/Vol] 15.0 mmol/L Normal [facility] Comment on above: Performed By: #### T SH, LIVER, T7, BNP, BMP #### [facility] [address] [address] [address] Bhumi Lewis Calcium [Mass/Vol] 9.0 mg/dL Normal 8.5-10.1 [facility] Comment on above: Performed By: #### T SH, LIVER, T7, BNP, BMP #### [facility] [address] [address] [address] Bhumi Lewis Chloride [Moles/Vol] 107 mmol/L Normal 98-107 [facility] Comment on above: Performed By: #### T SH, LIVER, T7, BNP, BMP #### [facility] [address] [address] [address] Bhumi Lewis CO2 [Moles/Vol] 26.7 mmol/L Normal 21.0-32.0 [facility] Comment on above: Performed By: #### T SH, LIVER, T7, BNP, BMP #### [facility] [address] [address] [address] Bhumi Lewis Creatinine [Mass/Vol] 1.01 mg/dL Normal 0.55-1.02 [facility] Comment on above: Performed By: #### T SH, LIVER, T7, BNP, BMP #### [facility] [address] [address] [address] Bhumi Lewis EGFR-AF BOTSWANAN >60 Normal >=60 [facility] Comment on above: Performed By: #### T SH, LIVER, T7, BNP, BMP #### [facility] [address] [address] [address] Bhumi Lewis EGFR-NON AF BOTSWANAN 54 mL/min/1.73m2 Critically low >=60 [facility] Comment on above: Performed By: #### T SH, LIVER, T7, BNP, BMP #### [facility] [address] [address] [address] Bhumi Lewis Glucose [Mass/Vol] 100 mg/dL Normal 74-106 [facility] Comment on above: Performed By: #### T SH, LIVER, T7, BNP, BMP #### [facility] [address] [address] [address] Bhumi Lewis Potassium [Moles/Vol] 4.7 mmol/L Normal 3.5-5.1 [facility] Comment on above: Performed By: #### T SH, LIVER, T7, BNP, BMP #### [facility] [address] [address] [address] Bhumi Lewis Sodium [Moles/Vol] 144 mmol/L Normal 136-145 [facility] Comment on above: Performed By: #### T SH, LIVER, T7, BNP, BMP #### [facility] [address] [address] [address] Bhumi Lewis Urea nitrogen [Mass/Vol] 22.0 mg/dL Critically high 7.0-18.0 [facility] Comment on above: Performed By: #### T SH, LIVER, T7, BNP, BMP #### [facility] [address] [address] [address] Bhumi Lewis Urea nitrogen/Creatinine [Mass ratio] 21.8 mg/mg Normal [facility] Comment on above: Performed By: #### T SH, LIVER, T7, BNP, BMP #### [facility] [address] [address] [address] Bhumi Lewis TSHon 07-24-2022 TSH 2.303 uIU/mL Normal 0.358-3.[address] [facility] Comment on above: Performed By: #### T SH, LIVER, T7, BNP, BMP #### [facility] [address] [address] [address] Bhumi Lewis Reminderson 05-29-2022 Reminders - From: Hien White LPN To: N - Clinical; Sent: 05/29/2022 13:21:17 EST Show up: 04/26/2032 07:00:00 EST Subject: colonoscopy recall Due Date/Time: 05/27/2032 07:00:00 EST Reminder/Recall Patient is due for screening colonoscopy 05/27/2032. Normal [facility] Outside Colonoscopyon 2022 Outside Colonoscopy [id number] .[id number]:127 Normal [facility] Consent for Procedure/Surger yon 04-27-2022 Consent for Procedure/Surgery [id number]:127 Normal [facility] XR DEXA BONE DENSITYon 02-25 XR [...] - Low Fracture Risk Electronically authenticated by: RUHT CARTER Date: 2022-02-25 08:56 Normal [facility] Physician Referralon 022 Physician Referral [id number] .[id number]:127 Normal [facility] INSULINon 12-03-2021 Insulin 10.4 uIU/mL Normal 2.6-24.9 [facility] Comment on above: Performed By: #### I NSULIN ####[facility] [address] [address]Dr. Bhumi Lewis T4, T3U, FTI [facility] 12-03 Free Thyroxine Index 1.4 Normal 1.2-4.9 [facility] Comment on above: Performed By: #### T HYLC #### [facility] [address] [place], [place] [address] Dr. Bhumi Lewis T3 Uptake 23 % Critically low 24-39 [facility] Comment on above: Performed By: #### T HYLC #### [facility] [address] [address] [address] Bhumi Lewis T4 [Mass/Vol] 6.2 ug/dL Normal 4.5-12.0 [facility] Comment on above: Performed By: #### T HYLC #### [facility] [id number] Bhumi Lewis VIT D 25-OH [facility]on 2021 Vitamin D, 25-Hydroxy 34.6 ng/mL Normal 30.0-100.0 [facility] Comment on above: Result Comment: Romy min D deficiency has been defined by the [place] [employer] and an Endocrine Society practice guideline as a level of serum 25-OH vitamin D less than 20 ng/mL (1,2). The Endocrine Society went on to further define vitamin D insufficiency as a level between 21 and 29 ng/mL (2). 1. IOM ([place] [employer]). 2010. Dietary reference intakes for calcium and D. [place]: The National Academies Press. 2. Elizabeth MF, Bora CHISHOLM, Yumi JAIMES, et al. Evaluation, treatment, and prevention of vitamin D deficiency: an Endocrine Society clinical practice guideline. JCEM. 2010; 96(7):1911-30. Performed By: #### V ITADLC ####[facility] [address] [address]DrSuzy Lewis BNPon 12-02-2021 Natriuretic peptide B (Bld) [Mass/Vol] 225.0 pg/mL Normal <=900.0 [facility] Comment on above: Performed By: #### T SH, BNP, CMP, LIPID ####[facility] [address] [place], [place] [address]GnSuzy Lewis CBC AUTO DIFFon 12-02-2021 BASO # 0.0 103/ul Normal 0.0-0.1 [facility] Comment on above: Performed By: #### C BC ####[facility] [address] [id number] Lewis Basophils/100 WBC (Bld) 0.2 % Normal 0.2-2.0 [facility] Comment on above: Performed By: #### C BC ####[facility] [address] [address]Dr[address] Bhumi Lewis EO # 0.1 103/ul Normal 0.0-0.7 [facility] Comment on above: Performed By: #### C BC ####[facility] T[address]wyom[address] [place], [place] [address]Dr. Bhumi Lewis Eosinophils/100 WBC (Bld) 2.9 % Normal 0.9-7.0 [facility] Comment on above: Performed By: #### C BC ####[facility] Cldszkiawm[address] [place], [place] [address]Dr. Bhumi Lewis Erythrocyte distribution width (RBC) [Ratio] 13.2 % Normal 11.0-15.0 [facility] Comment on above: Performed By: #### C BC ####[facility] Edezvmxm[address] [place], [place] [address]Dr. Bhumi Lewis Hematocrit (Bld) [Volume fraction] 41.6 % Normal 36.0-48.0 [facility] Comment on above: Performed By: #### C BC ####[facility] We[address]adf[address] [place], [place] [address]Dr. Bhumi Lewis Hemoglobin (Bld) [Mass/Vol] 13.4 g/dL Normal 12.0-16.0 [facility] Comment on above: Performed By: #### C BC ####[facility] Resjlbblpx[address] [place], [place] [address]Dr. Bhumi Lewis IG # 0.01 10e3/ul Normal 0.00-0.03 [facility] Comment on above: Performed By: #### C BC ####[facility] Jwstdmiuzz[address] [place], [place] [address]Dr. Bhumi Lewis IG % 0.2 % Normal 0.0-0.5 [facility] Comment on above: Performed By: #### C BC ####[facility] Isfbmpfknc[address] [place], [place] [address]Dr. Bhumi Lewis LYMPH # 1.5 103/ul Normal 1.2-3.8 [facility] Comment on above: Performed By: #### C BC ####[facility] [address]cxbfkkklg8054 [place] [id number]. Bhumi Lewis Lymphocytes/100 WBC (Bld) 32.2 % Normal 20.5-60.0 [facility] Comment on above: Performed By: #### C BC ####[facility] Bnpxylvbwd6053 [place] [id number]. Bhumi Lewis MANUAL DIFF REQ NO Normal [facility] Comment on above: Performed By: #### C BC ####[facility] Dyfzrdxlbn0966 [place] [address]Dr. Bhumi Joshua MCH (RBC) [Entitic mass] 31.7 pg Normal 26.7-34.0 [facility] Comment on above: Performed By: #### C BC ####[facility] Gutpswyeb[address] [place], [place] [address]Dr. Bhumi Lewis MCHC (RBC) [Mass/Vol] 32.2 g/dL Normal 29.9-35.2 [facility] Comment on above: Performed By: #### C BC ####[facility] [address] [place], [place] [address]Dr. Bhumi Lewis MCV (RBC) [Entitic vol] 98.3 fL Normal 81.0-99.0 [facility] Comment on above: Performed By: #### C BC ####[facility] Ar[address]grsrof[address] [place], [place] [address]Dr. Bhumi Joshua MONO # 0.4 103/ul Normal 0.3-0.8 [facility] Comment on above: Performed By: #### C BC ####[facility] Lerwxyndba[address] [place], [place] [address]Dr. Bhumi Lewis Monocytes/100 WBC (Bld) 7.4 % Normal 1.7-12.0 [facility] Comment on above: Performed By: #### C BC ####[facility] [address]ngelcwwkf[address] [place], [place] [address]Dr. Kortneynanette Lewis NEUT # 2.7 103/ul Normal 1.4-6.5 [facility] Comment on above: Performed By: #### C BC ####[facility] Izirrjysjw7437 [place] [address]Dr. Bhumi Lewis Neutrophils/100 WBC (Bld) 57.1 % Normal 43.0-75.0 [facility] Comment on above: Performed By: #### C BC ####[facility] Edlfecqthn5974 [place] [phone]. Bhumi Lewis Platelet mean volume (Bld) [Entitic vol] 9.1 fL Critically low 9.5-13.5 [facility] Comment on above: Performed By: #### C BC ####[facility] Jayalyikgv7104 [place] [address]Dr. Bhumi Lewis PLT 243 103/ul Normal 150-450 [facility] Comment on above: Performed By: #### C BC ####[facility] Oyhnsywbxj[address] [place] [address]Dr. Bhumi Lewis RBC 4.23 106/ul Normal 4.20-5.40 [facility] Comment on above: Performed By: #### C BC ####[facility] Aqkgreweic[address] [place], [place] [address]Dr. Bhumi Lewis WBC 4.8 103/ul Normal 4.0-11.0 [facility] Comment on above: Performed By: #### C BC ####[facility] Nodhavxobl8185 [place] [address]Dr. Bhumi Lewis GLYCOHEMOGLOBIN A1Con 2021 ADA RECOMMENDATION SEE BELOW Normal [facility] Comment on above: Result Comment: ADA RECOMMENDED LIMIT 4.0 - 6.0 ADA THERAPEUTIC TARGET < 7.0 ACTION SUGGESTED > 7.0 Performed By: #### A 1C ####[facility] [address] [place], [place] [address]Dr. Bhumi Lewis Glucose [Mass/Vol] 120 mg/dL Normal [facility] Comment on above: Performed By: #### A 1C ####[facility] Jbrjmurnui1593 [place] [id number]. Bhumi Lewis HbA1c (Bld) [Mass fraction] 5.8 % Normal 4.5-6.2 [facility] Comment on above: Performed By: #### A 1C ####[facility] [address]ay[address]fe[address]372 [place], [place] [address]Dr. Bhumi Lewis IRONon 12-02-2021 Iron [Mass/Vol] 95.0 ug/dL Normal 50.0-170.0 [facility] Comment on above: Performed By: #### I HIWOT #### [facility] [address] [place], [place] [address] Dr. Bhumi Lewis LIPID PROFILEon 12-02-2021 CHOL-HDL RATIO NORM SEE BELOW Normal [facility] Comment on above: Result Comment: 3.3 - 4.4 LOW RISK 4.4 - 7.1 AVERAGE RISK 7.1 - 11.0 MODERATE RISK >11.0 HIGH RISK Performed By: #### T SH, BNP, CMP, LIPID ####[facility] Ojgeynpfdh8794 [place] [id number] Lewis Cholesterol [Mass/Vol] 218 mg/dL Critically high <=200 [facility] Comment on above: Performed By: #### T SH, BNP, CMP, LIPID ####[facility] Brbyjlxhkt6757 [place], [place] [address]XjDr. Bhumi Lewis Cholesterol in HDL [Mass/Vol] 62 mg/dL Critically high 40-60 [facility] Comment on above: Performed By: #### T SH, BNP, CMP, LIPID ####[facility] Cnsrppvnne7[address] [place], [place] [address]KbSuzy Lewis Cholesterol in LDL [Mass/Vol] 126.6 mg/dL Normal [facility] Comment on above: Performed By: #### T SH, BNP, CMP, LIPID ####[facility] Nioyklctus8839 [place], [place] [address]XmDr. Bhumi Lewis Cholesterol.total/Ch olesterol in HDL [Mass ratio] 3.5 {ratio} Normal [facility] Comment on above: Performed By: #### T SH, BNP, CMP, LIPID ####[facility] Bthbtqirpy40[address] [place], [place] [address]TsSuzy Lewis HDL NORMAL > or = 60 mg/dl - LO W CARDIOVASCULAR RISK <40 mg/dl - HIGH CARDIOVASCULAR RISK Normal [facility] Comment on above: Performed By: #### T SH, BNP, CMP, LIPID ####[facility] Udfjykppex65[address] [place] [id number]. Bhumi Lewis LDL CALC NORMAL SEE BELOW Normal [facility] Comment on above: Result Comment: <100 mg/dl OPTIMAL 100 - 129 mg/dl NEAR OR ABOVE OPTIMAL 130 - 159 mg/dl BORDERLINE HIGH 160 - 189 mg/dl HIGH >190 mg/dl VERY HIGH Performed By: #### T SH, BNP, CMP, LIPID ####[facility] Whxfoorhfp5998 [place] [id number]. Bhumi Lewis Triglyceride [Mass/Vol] 147 mg/dL Normal <=150 [facility] Comment on above: Performed By: #### T SH, BNP, CMP, LIPID ####[facility] Xosdejqpcj6224 [place] [address]Dr. Bhumi Lewis VLDL CALC 29.4 mg/dL Normal [facility] Comment on above: Performed By: #### T SH, BNP, CMP, LIPID ####[facility] Hgfqfkjsrt6229 [place] [address]Dr. Bhumi Lewis PROF 14(COMP METB)on 022 Albumin [Mass/Vol] 3.6 g/dL Normal 3.4-5.0 [facility] Comment on above: Performed By: #### T SH, BNP, CMP, LIPID ####[facility] Fyysvsvwhx18[address] [place] [address]Dr. Bhumi Lewis Albumin/Globulin [Mass ratio] 1.0 {ratio} Normal [facility] Comment on above: Performed By: #### T SH, BNP, CMP, LIPID ####[facility] Posjqrcsvd7253 [place] [address]Dr. Bhumi Lewis ALP [Catalytic activity/Vol] 64 U/L Normal 46-116 [facility] Comment on above: Performed By: #### T SH, BNP, CMP, LIPID ####[facility] Romhhwfmum09[address] [place] [address]Dr. Bhumi Lewis ALT [Catalytic activity/Vol] 21 U/L Normal 14-59 [facility] Comment on above: Performed By: #### T SH, BNP, CMP, LIPID ####[facility] Ouirwwsgye6[address] [place] [address]Dr. Bhumi Lewis Anion gap [Moles/Vol] 13.5 mmol/L Normal [facility] Comment on above: Performed By: #### T SH, BNP, CMP, LIPID ####[facility] Iksjkpxydw7542 [place] [address]Dr. Bhumi Lewis AST [Catalytic activity/Vol] 21 U/L Normal 15-37 [facility] Comment on above: Performed By: #### T SH, BNP, CMP, LIPID ####[facility] Lgmnzcpikp6196 [place] [address]Dr. Bhumi Lewis Bilirubin [Mass/Vol] 0.4 mg/dL Normal 0.2-1.0 [facility] Comment on above: Performed By: #### T SH, BNP, CMP, LIPID ####[facility] Snkklwdxty3055 [place] [address]Dr. Bhumi Lewis Calcium [Mass/Vol] 9.0 mg/dL Normal 8.5-10.1 [facility] Comment on above: Performed By: #### T SH, BNP, CMP, LIPID ####[facility] Wnlefcwldu1914 [place] [address]Dr. Bhumi Lewis Chloride [Moles/Vol] 105 mmol/L Normal 98-107 [facility] Comment on above: Performed By: #### T SH, BNP, CMP, LIPID ####[facility] Eittgnxipe8[address] [place] [address]Dr. Bhumi Lewis CO2 [Moles/Vol] 24.7 mmol/L Normal 21.0-32.0 [facility] Comment on above: Performed By: #### T SH, BNP, CMP, LIPID ####[facility] Emtrizcxuz8016 [place] [address]Dr. Bhumi Lewis Creatinine [Mass/Vol] 1.04 mg/dL Critically high 0.55-1.02 [facility] Comment on above: Performed By: #### T SH, BNP, CMP, LIPID ####[facility] Kvjknlgyda6[address] [place] [address]Dr. Bhumi Lewis EGFR-AF BOTSWANAN >60 Normal >=60 [facility] Comment on above: Performed By: #### T SH, BNP, CMP, LIPID ####[facility] Aopkywqvpx1073 [place] [address]Dr. Bhumi Lewis EGFR-NON AF BOTSWANAN 52 mL/min/1.73m2 Critically low >=60 [facility] Comment on above: Performed By: #### T SH, BNP, CMP, LIPID ####[facility] Tzkrdbygcu9574 [place] [address]Dr. Bhumi Lewis Globulin (S) [Mass/Vol] 3.6 g/dL Normal [facility] Comment on above: Performed By: #### T SH, BNP, CMP, LIPID ####[facility] Vbfegiqowp3968 [place] [address]Dr. Bhumi Lewis Glucose [Mass/Vol] 96 mg/dL Normal 74-106 [facility] Comment on above: Performed By: #### T SH, BNP, CMP, LIPID ####[facility] Adfpzovshi6957 [place] [address]Dr. Bhumi Lewis Potassium [Moles/Vol] 4.2 mmol/L Normal 3.5-5.1 [facility] Comment on above: Performed By: #### T SH, BNP, CMP, LIPID ####[facility] Ccnrcnomsb6691 [place] [address]Dr. Bhumi Lewis Protein [Mass/Vol] 7.2 g/dL Normal 6.4-8.2 [facility] Comment on above: Performed By: #### T SH, BNP, CMP, LIPID ####[facility] Xkzozdkbag1878 [place] [address]Dr. Bhumi Lewis Sodium [Moles/Vol] 139 mmol/L Normal 136-145 [facility] Comment on above: Performed By: #### T SH, BNP, CMP, LIPID ####[facility] Wsookvybmu5150 [place] [address]Dr. Bhumi Lewis Urea nitrogen [Mass/Vol] 20.0 mg/dL Critically high 7.0-18.0 [facility] Comment on above: Performed By: #### T SH, BNP, CMP, LIPID ####[facility] N[address]zcg03[address] [place], [place] [address]Em. Bhumi Lewis Urea nitrogen/Creatinine [Mass ratio] 19.2 mg/mg Normal [facility] Comment on above: Performed By: #### T SH, BNP, CMP, LIPID ####[facility] Nyruenmdxk1496 [place], [place] [address]Jh. Bhumi Lewis TSHon 12-02-2021 TSH 2.178 uIU/mL Normal 0.358-3.740 [facility] Comment on above: Performed By: #### T SH, BNP, CMP, LIPID ####[facility] Os[address]zflcic34[address] [place], [place] [address]Jr. Bhumi Lewis MRI Shoulder w/o Lefton 09-12 MRI Shoulder w/o Left HISTORY: Lateral left [...] by Claudio Rollins on 10/10/2021 1356 Normal [facility] Rn Quality Ambulatory Visit Summaryon 0 10-08-2021 Ambulatory Visit Summary CORI LEES :1950 Visit Date:10/08/2021 Ambulatory Visit Instructions Your Diagnosis Urethral caruncle Vaginal atrophy Pelvic pain Cervical polyp Tests Performed Urnls Dip Stick Auto w/o Microscopy POC 65250 Your Care Team Attending Physician - Jesus WALSH, Lorena Morocho Primary Care Physician - Kerrie Hammer MD [...] Following Appointments Follow Up with Jesus WALSH, Lorena Morocho, URL, URO When: Where: [address] [place] [address] [phone] Medications What How Much When Instructions Unchanged [...] Urnls Dip Stick Auto w/o Microscopy POC 66112 (10/08/2021) Bilirubin Urine Dipstick - Negative Blood Urine Dipstick - Trace-intact Glucose Urine Dipstick - Negative Ketones Urine Dipstick - Negative Leukocytes Urine Dipstick - Negative Nitrite Urine Dipstick - Negative Protein Urine Dipstick - Negative Specific [place] Urine Dipstick - >=1.030 Urine Appearance Urine [...] these instructions at home: Medicines ? Take smwz-ila-yqnabcb and prescription medicines only as told by [...] belly pain for any changes. ? Take baeu-vny-wlpjjcd and prescription medicines only as told by your do (more content not included)... Normal [facility] Patient Educationon 10-09-19 Patient Education Gastroenterology Abdominal Pain, Adult Many things can cause belly (abdominal) pain. Most times, belly pain is not dangerous. Many cases of belly pain can be watched and treated at home. Sometimes, though, belly pain is serious. Your doctor will try to find the cause of your belly pain. Follow these instructions at home: Medicines ? Take gdeq-xwh-nwzeahh and prescription medicines only as told by [...] belly pain for any changes. ? Take gtap-oht-uawsnub and prescription medicines only as told by [...] 09/14/2008 Document Revised: 08/07/2019 Document Reviewed: 08/07/2019 RxCost Containment Patient Education ? [address] [facility] Urology Office/Clinic Noteon 10-08-2021 Urology Office/Clinic [...] this time. She has not seen her ski instructor as of yet for the cervical polyp. [...] Noted on vaginoscopy has not seen her ski instructor as of yet for the cervical polyp. Educated pt that she needs to see her CHAIR TRIMMER to f/u with this. Follow-up With When Contact Information Jesus WALSH, Lorena Morocho, DOREEN, URO [address], [place] [phone] Additional Instructions: PRN Patient Education Abdominal Pain, Adult, Cqdt-qq-Vsho Beba Senior, personally scribed for Dr. Lee on 10/08/2021 [...] Protein Urine Dipstick: Negative (10/08/21 09:46:00) Specific [place] Urine Dipstick: >=1.030 (10/08/21 09:46:00) Urine Appearance Urine Dipstick: Clear (10/08/21 09:46:00) Urine Color Urine Dipstick: Yellow (10/08/21 09:46:00) Urobilinogen Urine Dipstick: Normal 0.2-1 EU/dl (10/08/21 0 (more content not included)... Normal [facility] Comment on above: Result Comment: Elec tronically Signed By: Lorena Lee MD\.br\Date and Time Signed: 10/08/21 10:13 EDT\.br\Electronically Co-Signed By: Beba Rodriguez MA\.br\Date and Time Co-Signed: 10/08/21 10:06 EDT Consent for Procedure/Surger yon 06-24-2021 Consent for Procedure/Surgery [id number] .[id number]:127 Normal [facility] Urology Office/Clinic Noteon 06-24-2021 Urology Office/Clinic [...] pain) Improved on topical estrogen. Ordered: Cystourethroscopy 89610 4. Cervical polyp (N84.1: Polyp of cervix uteri) Noted on vaginoscopy today. Recommend follow-up with gynecology for further evaluation. Follow-up With When Contact Information Jesus WALSH, Lorena Morocho, URL, URO In 3 months 09/24/2021 EDT Additional Instructions: Patient Education Cystoscopy I, Darlin Moralez, personally scribed for Dr. Lee on 06/24/2021 [...] denies prior gynecologic surgeries or prior abnormal CHAIR TRIMMER workups. Denies vaginal bleeding or spotting. Pelvic pain improved now on topical estrogen, however given new findings on vaginoscopy, recommend further evaluation with Order Desk Caller. Normal [facility] Comment on above: Result Comment: Elec tronically Signed By: Jesus WALSH, Lorena Randhawa.br\Date and Time Signed: 06/24/21 09:27 EDT Formson 06-12-2021 Forms [id number] .[id number]:127 Normal [facility] Physician Referralon 022 Physician Referral [id number]:127 Normal [facility] Vital Signs Date Time Vital Sign Value Performing Clinician Lavern bangura 02-29-2024 13:13-0500 Diastolic blood pressure 74 mm[Hg] Amy Olmos MD Work Phone: [facility] 02-29-2024 13:13-0500 Systolic blood pressure 126 mm[Hg] Aym Olmos MD Work Phone: [facility] 04-24-2022 14:15-0500 Blood Pressure Location Noam LEDESMA [facility] 04-24-2022 14:15-0500 Diastolic blood pressure 76 mm[Hg] Noam LEDESMA [facility] 04-24-2022 14:15-0500 Heart rate 68 /min Noam LEDESMA [facility] 04-24-2022 14:15-0500 Respiratory rate 16 /min Noam LEDESMA [facility] 04-24-2022 14:15-0500 Systolic blood pressure 120 mm[Hg] Noam VALENCIAL [facility] 10-08-2021 09:47-0400 Blood Pressure Location Lorena Umanae [facility] 10-08-2021 09:47-0400 Diastolic blood pressure 67 mm[Hg] Lorena Lue [facility] 10-08-2021 09:47-0400 Heart rate 61 /min Lorena Lue [facility] 10-08-2021 09:47-0400 Respiratory rate 16 /min Lorena Lue [facility] 10-08-2021 09:47-0400 Systolic blood pressure 130 mm[Hg] Lorena Lue [facility] Encounters Encounter Date Encounter Type Care Provider Facility Start: 02-29-2024 End: 02-29-2024 Emily Olmos MD Work Phone: [facility] Start: 02-29-2024 End: 02-29-2024 Moiséso flowskendra Olmos MD Work Phone: [facility] Start: 02-29-2024 End: 02-29-2024 Office outpatient new 45 minutes Amy Olmos MD Work Phone: [facility] Comment on above: Bilateral tinnitus ( Primary Dx); Sensorineural hearing loss (SNHL), bilateral; BPPV (benign paroxysmal positional vertigo), right Start: 02-23-2024 End: 02-23-2024 ambulatory ALIX Braydon PONCE Not Available Start: 07-25-2022 End: 07-25-[address] KERRIE HAMMER . Facility:[facility] Start: 07-24-2022 End: 07-25-[address] KERRIE HAMMER . Facility:[facility] Start: 05-27-2022 End: 05-28-2022 ambulatory Noam LEDESMA Facility:CD:[id number] Start: 04-24-2022 End: 04-25-2022 ambulatory Kerrie Hammer Facility:[facility] Start: 04-24-2022 End: 04-24-2022 Patient encounter procedure Noam LEDESMA [facility] Start: 02-25-2022 End: 02-26-[address] KERRIE HAMMER . Facility: Start: 02-13-2022 ambulatory Kerrie Hammer Facility:[facility] Start: 12-02-2021 End: 12-03-[address] KERRIE HAMMER . Facility: Start: 10-08-2021 End: 10-09-2021 ambulatory Lorena Lee Facility:[facility] Start: 10-08-2021 End: 10-08-2021 Patient encounter procedure Lorena Lee [facility] Start: 10-03-2021 ambulatory Lorena Lee Facility:[facility] Start: 09-26-2021 ambulatory Lorena Lee Facility:[facility] Start: 06-24-2021 ambulatory Kerrie Hammer Facility:[facility] Start: 06-24-2021 End: 06-25-2021 ambulatory Lorena Lee Facility:[facility] Start: 06-23-2021 ambulatory Kerrie Hammer Facility:[facility] Procedures Date Procedure Procedure Detail Performing Clinician Start: 06-24-2021 Cystoscopy Lorena Lee Start: 10-12-2007 Colonoscopy Amy ambriz MD Work Phone: Start: 10-12-2007 Colonoscopy Noam WOLF Cholecystectomy Lorena Lee Colonoscopy Lorena Lee Decompression of med greta nerve Noam NILL Hammer toe operation Noam NILL History of nasal sin us surgery Noam NILL Insertion of hip prosthesis Lorena Lee Repair of hip Noam NILL Plan of Treatment Date Care Activity Detail Author Start: 02-29-2024 End: 02-29-2024 Patient encounter procedure 02/29/2024 1:10 PM EST Office Visit [facility] [address] [facility] [address] [place] [address] Amy Olmos MD [address] [facility] [address] [place] [address] Arrived [facility] Comment on above: Arrived Start: 10-11-2017 Screening for malign ant neoplasm of colon [facility] Start: 08-25-2017 Pneumococcal Vaccine : 65+ Years (2 of 2 - PCV) Pneumococcal Vaccine: 65+ Years (2 of 2 - PCV) [facility] Start: 1950 Screening for malign ant neoplasm of colon [facility] Immunizations Immunization Date Immunization Notes Care Provider [facility] 01-08-2022 SARS-CoV-2 (COVID-19 ) mRNAMUL.ORD![id number] Noam LEDESMA [facility] 12-12-2021 influenza virus vaccine, unspecified formulation Noam LEDESMA [facility] 07-22-2021 SARS-CoV-2 (COVID-19 ) mRNA-8353 vaccine Noam NILL [facility] 02-12-2021 SARS-CoV-2 (COVID-19 ) mRNA-1273 vaccine Noam LEDESMA [facility] [place] 01-10-2021 SARS-CoV-2 (COVID-19 ) Ad26 vaccine, recombinant Lorena Lee [facility] 06-10-2020 SARS-CoV-2 (COVID-19 ) Ad26 vaccine, recombinant Lorena Lee [facility] 05-13-2020 SARS-CoV-2 (COVID-19 ) Ad26 vaccine, recombinant Lorena Lee [facility] Payers Date Payer Category Payer Private Health Insurance [facility] [id number] 2013 Medicare MEDICARE [id number] 1959 Medicare [id number] 1959 Unknown [id number] 1950 Unknown [id number] 2.16.840.1.676727.3.579.2 .727 1950 Unknown [id number] 2.16.840.1.730309.3.579.2 .727 1950 Unknown [id number] 2.16.840.1.289561.3.579.2 .727 1950 Unknown [id number] 2.16.840.1.446273.3.579.2 .727 1950 Unknown [id number] 2.16.840.1.263204.3.579.2 .727 1950 Unknown [id number] 2.16.840.1.194598.3.579.2 .727 1950 Unknown [id number] 2.16.840.1.755023.3.579.2 .727 1950 Unknown [id number] 2.16.840.1.332888.3.579.2 .727 1948 Unknown [id number] 2.16.840.1.015704.3.579.2 .593 1950 Unknown [id number] 2.16.840.1.791754.3.579.2 .593 1950 Unknown [id number] 2.16.840.1.734394.3.579.2 .593 1948 Unknown [id number] 2.16.840.1.159384.3.579.2 .593 1948 Unknown [id number] 2.16.840.1.674093.3.579.2 .593 1950 Unknown [id number] 2.16.840.1.789459.3.579.2 .1259 Medicare [id number] Social History Date Type Detail Facility Start: 06-04-2021 End: 11-19-2024 Tobacco smoking status Never smoked tobacco (finding) [facility] Tobacco smoking status Never [facility] Start: 11-10-2022 End: 02-29-2024 Sex Assigned At Female [facility] Start: 11-10-2022 Alcoholic beverage intake Lifetime non-drinker (finding) [facility] Start: 11-10-2022 End: 02-29-2024 History of Social function [facility] Start: 1950 Sex assigned at Female [facility] Start: 11-03-2022 Gender identity Identifies as female gender (finding) [facility] Start: 11-03-2022 Sexual orientation Heterosexual (finding) [facility] Start: 02-29-2024 Tobacco use and exposure Smokeless tobacco non-user [facility] Healthcare Start: 02-29-2024 Alcoholic beverage intake Ex-drinker (finding) [facility] Functional Status Date Assessment Result Facility 04-24-2022 Functional Status N/A [facility] 10-08-2021 Functional Status N/A [facility] History of Present illness Narrative 02-29-2024 Amy Olmos MD - 02/29/2024 1:10 PM EST Note Date & Type Note Facility 02-29-2024 History of Presen t illness Narrative Subjective Patient ID: Cori Lees is a 73 y.o. 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 Fluctuates in intensity. Pt also reports she gets periodic vertigo with N/V. Laying in bed with head to RT brings on sx. Has spells at other times that last up to a day. Tx with dyazide and zyrtec. Pt feels dyazide has helped. Audio shows santana mild to moderate downsloping SNHL. Review of Systems All other systems reviewed and are negative. Family History Problem Relation Name Age of Onset Lung cancer Mother Nasreen Echeverria Cancer Mother Nasreen Echeverria Active Ambulatory Problems Diagnosis Date Noted Arthritis 11/10/2022 BMI 40.0-44.9, adult ([facility]) 11/10/2022 Carpal tunnel syndrome 11/10/2022 Hyperlipidemia ([facility]) 11/10/2022 Pure hypercholesterolemia ([facility]) 11/10/2022 Bronchial asthma ([facility]) 02/24/2024 Cervical polyp 02/24/2024 Chronic venous insufficiency of lower extremity 02/24/2024 Complete tear of left rotator cuff 02/24/2024 Dependent edema 02/24/2024 Hypothyroidism ([facility]) 02/24/2024 Screening for malignant neoplasm of colon 02/24/2024 Seasonal allergic rhinitis 02/24/2024 Urethral caruncle 02/24/2024 Vaginal atrophy 02/24/2024 Resolved Ambulatory Problems Diagnosis Date Noted No Resolved Ambulatory Problems Past Medical History: Diagnosis Date Dizziness Hypercholesterolemia ([facility]) Macular degeneration Obesity Tinnitus Past Surgical History: Procedure Laterality Date CARPAL TUNNEL RELEASE Bilateral 2019 CHOLECYSTECTOMY 2006 FOOT SURGERY Hammertoes Pt doesnt recall which toes or date [facility] HIP SURGERY Left 2008 Replacement SINUS SURGERY 2003 Allergies Allergen Reactions Pseudoephedrine Rash Other Reaction(s): Rash Sulfa Antibiotics Rash Current Outpatient Medications on File Prior to Visit Medication Sig Dispense Refill cetirizine (ZyrTEC) 10 MG tablet Take 10 mg by mouth fluticasone (Flonase) 50 MCG/ACT nasal spray Nasal for 90 liothyronine (Cytomel) 5 MCG tablet 1 (one) time each day at the same time Multiple Vitamins-Minerals (ICaps) capsule Take 1 capsule by mouth in the morning. simvastatin (Zocor) 20 MG tablet Take 20 mg by mouth at bedtime. triamterene-hydroCHLOROthiazide (Dyazide) 37.5-25 MG capsule Take 1 capsule by mouth Daily [DISCONTINUED] meloxicam (Mobic) 15 MG tablet Take 15 mg by mouth Daily [DISCONTINUED] tiZANidine (Zanaflex) 4 MG tablet Take 4 mg by mouth at bedtime No current facility-administered medications on file prior to visit. Objective Last Recorded Vitals Vitals: 02/29/24 1313 BP: 126/74 ENT Physical Exam Constitutional Appearance: patient appears well-developed, well-nourished and well-groomed, Constitutional comments: Strongly positive Hiltons-Hallpike to the Right. Head and Face Appearance: head appears normal; bony step-off present; Ear Ear Canals: right ear canal normal; left ear canal normal; Tympanic Membranes: right tympanic membrane normal; left tympanic membrane normal; Nose External Nose: nares patent bilaterally; external nose normal; Internal Nose: septum normal; Oral Cavity/Oropharynx Tongue: normal; Oral mucosa: normal; Hard palate: normal; Soft palate: normal; Tonsils: normal; Neck Neck: neck normal; neck palpation normal; Thyroid: thyroid normal; Respiratory Inspection: breathing unlabored; normal breathing rate; Auscultation: breath sounds are clear; Cardiovascular Inspection: extremities are warm and well perfused; no peripheral edema present; Auscultation: regular rate and rhythm; Assessment/Plan Diagnoses and all orders for this visit: Bilateral tinnitus Sensorineural hearing loss (SNHL), bilateral BPPV (benign paroxysmal positional vertigo), right Pt has santana tinnitus cv/w her santana SNHL. Does not need JAIMES. I agree she may have Meniere's, but she definitely has severe right BPPV. I will arrange for a RT Chon. Hold dyazide for now, as pt has only been taking PRN. I will reassess pt once chon completed and restart Meniere's tx if sx persist.. documented in this encounter [facility] Clinical Note 05-27-2022 Note Date [...] good condition. CC: Kerrie Hammer M.D. [facility] Clinical Note 04-24-2022 Note Date & Type Note Facility 04-24-2022 Note Chief Complaint consultation for colonoscopy HPI Staff 71 year old female presents on consultation from Dr. Hamemr for screening colonoscopy. Denies abdominal or rectal [...] 1 tab(s), Oral, Bedtime Flonase 0.05 mg/inh [place], 1 spray(s), Nasal, BID ICaps AREDS 2 [...] Mother. Immunizations Vaccine Date Status SARS-CoV-2 (COVID-19) [id number] 01/08/2022 Recorded influenza virus vaccine, inactivated 12/12/2021 Recorded SARS-CoV-2 (COVID-19) mRNA-1273 vaccine 07/22/2021 Recorded SARS-CoV-2 (COVID-19) mRNA-1273 vaccine 02/12/2021 Recorded SARS-CoV-2 (COVID-19) Ad26 vaccine 01/2021 Recorded SARS-CoV-2 (COVID-19) Ad26 vaccine 06/2020 Recorded SARS-CoV-2 (COVID-19) Ad26 vaccine 05/2020 Recorded [facility] Comment on above: Result Comment: Elec tronically Signed By: BALTAZAR WALSH, Noam Galindo.sergey\Date and Time Signed: 04/24/22 14:42 EST Hospital Discharge instructions 10-08-2021 Note Date & Type Note Facility 10-08-2021 Hospital Discharg e instructions Patient Education 10/08/2021 10:00:26 Abdominal Pain, Adult, Ihxl-go-Itqz Abdominal Pain, Adult Many things can cause belly (abdominal) pain. Most times, belly pain is not dangerous. Many cases of belly pain can be watched and treated at home. Sometimes, though, belly pain is serious. Your doctor will try to find the cause of your belly pain. Follow these instructions at home: Medicines Take bqfl-sij-jdiwqgm and prescription medicines only as told by [...] your belly pain for any changes. Take qlhw-yow-phydqua and prescription medicines only as told by [...] 09/14/2008 Document Revised: 08/07/2019 Document Reviewed: 08/07/2019 [employer] Containment Patient Education 2019 [employer]. Follow Up Care 09/04/2021 10:44:24 With:Jesus WALSH, Lorena Morocho, URL, URO Address: [address] [place] [phone] When: Unknown [facility] Clinical Note 06-24-2021 Note Date & Type [...] including vitamins, herbs, eye drops, creams, and iykg-dsj-qoieqfn medicines. ? Any problems you or family [...] tells you to take them. ? Taking bffb-jet-lhmvvvq medicines, vitamins, herbs, and supplements. ? Follow [...] these instructions at home: Medicines ? Take vyby-guv-ybdyiyo and prescription medicines only as told by [...] This is importa (more content not included)... [facility] Evaluation + Plan note Note Date & Type Note Facility Evaluation + Plan note No data available for this section [facility] Evaluation note Note Date & Type Note Facility Evaluation note Diagnosis Bilateral tinnitus- Primary Sensorineural hearing loss (SNHL), bilateral BPPV (benign paroxysmal positional vertigo), right documented in this encounter [facility] Hospital Discharge instructions Note Date & Type Note Facility Hospital Discharge instructions No data available for this section General [facility] [place] [facility] note Note Date & Type Note Facility Progress note No data available for this section [facility] Summary Purpose Family History No Family History Records FoundNo Family History Records FoundNo Family History Records FoundNo Family History Records Found Advance Directives No Advanced Directives Records FoundNo Advanced Directives Records FoundNo Advanced Directives Records FoundNo Advanced Directives Records Found Additional Source Comments Care Team (unrecognized sect ion and content) 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 Start Date End Date Kerrie Hammer MD [address] [place] [address] PCP - General Family Medicine 11/10/22 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 Start Date End Date Kerrie Hammer MD [address] [place] [address] PCP - General Family Medicine 11/10/22 INFORMATION SOURCE (unrecogn ized section and content) DATE CREATED AUTHOR 10/11/2021 [facility] dical Specialist DATE CREATED AUTHOR AUTHOR'S ORGANIZ ATION 06/05/2022 Alonzo Gonzales [facility] DATE CREATED AUTHOR AUTHOR'S ORGANIZ ATION 07/30/2022 [facility] DATE CREATED AUTHOR AUTHOR'S ORGANIZ ATION 02/25/2024 [facility] Specialists EPIC Reason for Visit (unrecogniz ed section and content) Reason Comments Tinnitus Audio 02/23/24 FOR RECORDS PERTAINING TO PATIENTS WHO ARE [...] BE BASED ON THE PRIMARY CLINICAL RECORDS. [employer] provides no warranty or guarantee of the accuracy or completeness of information in this document.
== END 2024-03-01 08:50 | disposition home or self-care (01) ==
LOC: RAD 08:49
PROVIDERS: PCP Family Medicine; Visit Provider Family Medicine
DX: E28.39 Other primary ovarian failure (principal)
CPT/HCPCS: 77080

== ENCOUNTER 2024-03-23 10:57 | Outpatient (OUT) | payer MEDICARE, SELFPAY ==
[2024-03-23 12:30] LABS: Anion Gap 9.6; BUN Creatinine Ratio 19.7; Calcium 9.1 mg/dL (8.5-10.1); Carbon Dioxide 32.4 mmol/L (21.0-32.0); Chloride 104 mmol/L (98-107); Estimated GFR (African America 52 (>=60 mL/min/1.73m^2); Estimated GFR (Non-African Ame 43 (>=60 mL/min/1.73m^2); Free T3 3.13 pg/mL (2.18-3.98); Glucose 93 mg/dL (74-106); Sodium 142 mmol/L (136-145); Thyroid Stimulating Hormone 1.525 uIU/mL (0.358-3.740)
== END 2024-03-23 10:58 | disposition home or self-care (01) ==
LOC: LAB 10:58
PROVIDERS: PCP Family Medicine; Visit Provider Family Medicine
DX: E03.9 Hypothyroidism, unspecified (principal); E86.0 Dehydration
CPT/HCPCS: 36415; 80048; 84436; 84443; 84481

== ENCOUNTER 2024-08-23 11:08 | Outpatient (OUT) | payer MEDICARE, SELFPAY ==
--- NOTE | 2024-08-23 11:10 | MM_ITS ---
Patient Name: MAGALI ALDRICH MR#: [id number] : 1950 Exam Date: 08/23/2024 Ordering Doctor: DR KERRIE ALVARES . RADIOLOGY REPORT PROCEDURE: MM TOMOSYNTHESIS SCREENING BI COMPARISON: MM TOMOSYNTHESIS SCREENING BI, 08/06/2023. MG MAMM SCREEN 3D SANTANA CAD, 07/24/2022. MG MAMM SCREEN 3D SANTANA CAD, 07/22/2021. MG MAMM SANTANA SCRN W CAD DIG, 12/27/2013. INDICATIONS: Screening Calculator Name NCI Breast Cancer Risk Assessment Tool 5 Year Breast Cancer Risk 2.00% Lifetime Breast Cancer Risk 4.20% Personal Breast Cancer No Personal Ovarian Cancer No Treatments None Family Cancers Mother with lung cancer at age 80; Grandfather-maternal with colon cancer at age ~90. LOCATION: [facility] BREAST COMPOSITION: The breasts are almost entirely fatty. FINDINGS: DIAGNOSTIC CATEGORY 1--NEGATIVE. RIGHT BREAST: No significant suspicious finding. LEFT BREAST: No significant suspicious finding. RECOMMENDATIONS: ROUTINE MAMMOGRAM AND CLINICAL EVALUATION IN 12 MONTHS. PLEASE NOTE: A NORMAL MAMMOGRAM DOES NOT EXCLUDE THE POSSIBILITY OF BREAST CANCER. A CLINICALLY SUSPICIOUS PALPABLE LUMP SHOULD BE BIOPSIED. Dictated by: Manish Alexander DO on 08/23/2024 at 15:15 Approved by: Manish Alexander DO on 08/23/2024 at 15:19
--- OUTSIDE RECORDS SUMMARY | 2024-08-23 11:18 | XMS_ITS | CCD ---
Author Organization [facility] Care Team Providers Care Supervisor Kennel Name Role Phone Rico Hammer Primary Care Physician [phone] Rico Hammer Referring Unavailable Noam LEDESMA Attending Unavailable Noam LEDESMA Attending Unavailable Lorena Lee Attending Unavailable Lorena Lee Attending Unavailable Lorena Lee Attending Unavailable Lorena [...] Unavailable HOY ., DR SY Consulting Unavailable [facility], DR KENN Loyd Consulting Unavailable HOY ., DR SY Primary Care Unavailable HOY ., DR SY Admitting Unavailable HOY ., DR SY Attending Unavailable HOY ., DR SY Consulting Unavailable Rico Hammer MD Primary Care Provider [phone] REFUGIO BILLINGSLEY Attending Unavailable KITA NI Attending Unavailable RICO HAMMER M Referring Unavailable TIMMIS, KOBE H Attending Unavailable DIA RICO M Referring Unavailable SONAL WORTHY Attending Unavailable TIMMIS, KOBE H Referring Unavailable SONAL WORTHY Attending Unavailable TIMMIS, KOBE H Referring Unavailable WORTHY, SONAL J Attending Unavailable KOBE MARVIN Referring Unavailable SONAL WORTHY Attending Unavailable KOBE MARVIN Referring Unavailable KENN CANALES Attending Unavailable KOBE MARVIN Referring Unavailable Allergies Allergy Classification Reported Allergen(s) Allergy Type Date of Onset Reaction(s) Facility (20 sources) Pseudoephedrine; Translations: [pseudoephedrine] Drug Allergy 4 Eruption (morphologic abnormality), Rash [facility] (3 sources) Sulfonamides (Antibiotic); Translations: [sulfa drugs] Drug allergy Unknown (qualifier value), Eruption of skin (disorder) [facility] (1 source) Pseudoephedrine Drug Allergy [facility] [place] [facility] (1 source) Sulfonamides (Antibiotic) Drug allergy (disorder) [facility] [place] [facility] (19 sources) Sulfonamides (Antibiotic) Drug Allergy 3 Rash [facility] Medications Current Medications Medication Drug Class(es) Dates Sig (Normalized) Sig (Original) cetirizine hydrochloride 10 mg oral tablet (18 sources) Histamine-1 Receptor Antagonist Start: 04-08-2022 cetirizine (ZyrTEC) 10 MG tablet Take 10 mg by mouth 04/08/2022 Active fluticasone propionate 0.05 mg/actuat metered dose nasal spray (20 sources) Corticosteroid Start: 04-08-2022 fluticasone (Flonase) 50 MCG/ACT nasal spray Nasal for 90 04/08/2022 Active Start: 04-08-2022 Flonase 0.05 m g/inh [place] 1 spray(s), Nasal, BID, Refill(s) 0 Start Date: 04/08/22 Status: Ordered Start: 06-04-2021 fluticasone pr opionate Inhalation, Refills(s) 0 Start Date: 06/04/21 Status: Ordered Start: 06-04-2021 fluticasone fu roate 50 mcg inhalation powder Inhalation, q24hr, Refills(s) 0 Start Date: 06/04/21 Status: Ordered hydroCHLOROthiazide 25 mg / triamterene 37.5 mg oral capsule (17 sources) Potassium-sparing Diuretic, Thiazide Diuretic Start: 02-09-2024 take 1 capsule by mouth once daily triamterene-hydroCHLOROthiazide (Dyazide) 37.5-25 MG capsule Take 1 capsule by mouth Daily 02/09/2024 Active ICaps AREDS 2 (2 sources) Start: 06-04-2021 ICaps AREDS 2 Refill(s) 0 St art Date: 06/04/21 Status: Ordered liothyronine sodium 0.005 mg oral tablet (17 sources) l-Triiodothyronine Start: 02-21-2024 liothyronine (Cytomel) 5 MCG tablet 1 (one) time each day at the same time 02/21/2024 Active meloxicam 15 mg oral tablet (3 sources) Nonsteroidal Anti-inflammatory Drug Start: 11-18-2023 End: 02-29-2024 take 1 tablet by mouth once daily meloxicam (Mobic) 15 MG tablet Take 15 mg by mouth Daily 11/18/2023 02/29/2024 Discontinued (Therapy completed) Multiple Vitamins-Minerals (ICaps) capsule (17 sources) take 1 capsule by mouth in the morning Multiple Vitamins-Minerals (ICaps) capsule Take 1 capsule by mouth in the morning. Active predniSONE (1 source) Start: 10-08-2021 predniSONE Oral, Daily, Refills(s) 0 Start Date: 10/08/21 Status: Ordered simvastatin 20 mg oral tablet (20 sources) HMG-CoA Reductase Inhibitor Start: 06-04-2021 take [...] and perineal pain] Onset: 10-08-2021 Episodic Asthma (18 sources) Asthma; Translations: [Unspecified asthma, uncomplicated] Onset: 02-24-2024 04-08-2022 Chronic Conditions associated with dizziness or vertigo (14 sources) Benign paroxysmal positional vertigo; Translations: [Benign paroxysmal vertigo, right ear] Onset: 03-20-2024 02-29-2024 Episodic Congestive heart failure; nonhypertensive (1 source) Unspecified diastolic (congestive) heart failure; Translations: [UNSPECIFIED DIASTOLIC HEART FAILURE] Onset: 07-30-2022 Chronic Disorders of lipid metabolism (20 sources) Hypercholesterolemia ; Translations: [Hyperlipidemia] Onset: 05-28-2022 [...] [OTHER FATIGUE] Onset: 07-25-2022 Episodic Menopausal disorders (20 sources) Atrophic vaginitis; Translations: [Postmenopausal atrophic vaginitis] Onset: 10-08-2021 Chronic Nutritional deficiencies (4 sources) Vitamin D deficiency, unspecified; Translations: [VITAMIN D DEFICIENCY UNSPECIFIED] Onset: 12-02-2021 Chronic Osteoarthritis (20 sources) Arthritis; Translations: [Unspecified osteoarthritis, unspecified site] Onset: 05-28-2022 06-04-2021 Chronic Other aftercare (1 source) 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; Translations: [OTH FRINGE MAKER CURRENT DRUG THERAPY] Onset: 05-28-2022 Episodic Other connective tissue disease (17 sources) Full thickness rotator cuff tear; Translations: [Complete rotator cuff tear or rupture of left shoulder, not specified as traumatic] Onset: 02-24-2024 02-24-2024 Episodic Other diseases of bladder and urethra (20 sources) Urethral caruncle; Translations: [Urethral caruncle] Onset: 10-08-2021 Episodic Other diseases of veins and lymphatics (18 sources) Venous insufficiency of leg; Translations: [Venous insufficiency (chronic) (peripheral)] Onset: 02-24-2024 04-08-2022 Episodic Other diseases of veins and lymphatics (1 source) Other specified disorders of veins; Translations: [OTHER SPECIFIED DISORDERS OF VEINS] Onset: 05-28-2022 Episodic Other diseases of veins and lymphatics (1 source) Venous insufficiency (chronic) (peripheral); Translations: [VENOUS INSUFF CHRONIC PERIPHERAL] Onset: 05-28-2022 Episodic Other ear and sense organ disorders (3 sources) Sensorineural hearing loss, bilateral; Translations: [Sensorineural hearing loss, bilateral] 02-29-2024 Chronic Other ear and sense organ disorders (3 sources) Bilateral tinnitus; Translations: [Tinnitus, bilateral] 02-29-2024 Episodic Other female genital disorders (1 source) Adenomatous polyp of cervix; Translations: [Polyp of cervix uteri] Onset: 10-08-2021 Episodic Other female genital disorders (19 sources) Polyp of cervix; Translations: [Polyp of cervix uteri] Onset: 02-24-2024 06-24-2021 Episodic Other nervous system disorders (19 sources) Carpal tunnel syndrome; Translations: [Carpal tunnel syndrome, unspecified upper limb] Onset: 11-10-2022 11-10-2022 Chronic Other nutritional; endocrine; and metabolic disorders (1 source) Body mass index 30+ - obesity 06-04-2021 Chronic Other nutritional; endocrine; and metabolic disorders (20 sources) Body mass index 40+ - severely obese; Translations: [Body mass index (BMI) 40.0-44.9, adult] Onset: 11-10-2022 04-24-2022 Chronic Other screening for suspected conditions (not mental disorders or infectious disease) (20 sources) Screening for malignant neoplasm of colon done; Translations: [Encounter for screening for malignant neoplasm of colon] Onset: 04-24-2022 Episodic Other skin disorders (2 sources) Seborrheic keratosis; Translations: [Other seborrheic keratosis] 05-16-2024 Episodic Other skin disorders (2 sources) Actinic keratosis; Translations: [Actinic keratosis] 05-16-2024 Episodic Other upper respiratory disease (18 sources) Seasonal allergic rhinitis; Translations: [Other seasonal allergic rhinitis] Onset: 11-14-2024 12-28-2022 Chronic Prolapse of female genital organs (2 sources) Cystocele 06-24-2021 Chronic Residual codes; unclassified (18 sources) Dependent edema; Translations: [Edema, unspecified] Onset: [...] DIGESTV TRACT] Onset: 05-28-2022 Episodic Thyroid disorders (17 sources) Hypothyroidism; Translations: [Hypothyroidism, unspecified] Onset: 02-24-2024 [...] Test Name Value Interpretation Reference Range Facility No Panel Informationon 05-16 [facility] Auditory function testson Right Ear: Mild to moderate sensorineural hearing loss above 3K Hz Left Ear: Mild to moderate sensorineural hearing loss above 2K Hz [facility] C. DIFF PCRon 07-25-2022 C. DIFFICILE PCR Negative Normal NEGATIVE [facility] Comment on above: Performed By: #### C DIFPO #### [facility] [address] [place] [address] Dr. Bhumi Lewis BNPon 07-24-2022 Natriuretic peptide B (Bld) [Mass/Vol] 381.0 pg/mL Normal <=900.0 [facility] Comment on above: Performed By: #### T SH, LIVER, T7, BNP, BMP #### [facility] [address] [place] [address] Dr. Bhumi Lewis CBC AUTO DIFFon 07-24-2022 BASO # 0.0 103/ul Normal 0.0-0.1 [facility] Comment on above: Performed By: #### C BC #### [facility] [address] [place] [address] Dr. Bhumi Lewis Basophils/100 WBC (Bld) 0.4 % Normal 0.2-2.0 [facility] Comment on above: Performed By: #### C BC #### [facility] [address] [place] [address] Dr. Bhumi Lewis EO # 0.1 103/ul Normal 0.0-0.7 [facility] Comment on above: Performed By: #### C BC #### [facility] [address] [place] [address] Dr. Bhumi Lewis Eosinophils/100 WBC (Bld) 2.7 % Normal 0.9-7.0 [facility] Comment on above: Performed By: #### C BC #### [facility] [address] [place] [address] Dr. Bhumi Lewis Erythrocyte distribution width (RBC) [Ratio] 13.1 % Normal 11.0-15.0 [facility] Comment on above: Performed By: #### C BC #### [facility] [address] [place] [address] Dr. Bhumi Lewis Hematocrit (Bld) [Volume fraction] 40.0 % Normal 36.0-48.0 [facility] Comment on above: Performed By: #### C BC #### [facility] [address] [place] [address] Dr. Bhumi Lewis Hemoglobin (Bld) [Mass/Vol] 13.2 g/dL Normal 12.0-16.0 [facility] Comment on above: Performed By: #### C BC #### [facility] [address] [address] [address] Bhumi Lewis IG # 0.02 10e3/ul Normal 0.00-0.03 [facility] Comment on above: Performed By: #### C BC #### [facility] [address] [place] [address] Dr. Bhumi Lewis IG % 0.4 % Normal 0.0-0.5 [facility] Comment on above: Performed By: #### C BC #### [facility] [address] [place] [address] Dr. Bhumi Lewis LYMPH # 1.4 103/ul Normal 1.2-3.8 [facility] Comment on above: Performed By: #### C BC #### [facility] [address] [place] [address] Dr. Bhumi Lewis Lymphocytes/100 WBC (Bld) 30.3 % Normal 20.5-60.0 [facility] Comment on above: Performed By: #### C BC #### [facility] [address] [place] [address] Dr. Bhumi Lewis MANUAL DIFF REQ NO Normal [facility] Comment on above: Performed By: #### C BC #### [facility] [address] [place] [address] Dr. Bhumi Lewis MCH (RBC) [Entitic mass] 31.1 pg Normal 26.7-34.0 [facility] Comment on above: Performed By: #### C BC #### [facility] [address] [place] [address] Dr. Bhumi Lewis MCHC (RBC) [Mass/Vol] 33.0 g/dL Normal 29.9-35.2 [facility] Comment on above: Performed By: #### C BC #### [facility] [address] [place] [address] Dr. Bhumi Lewis MCV (RBC) [Entitic vol] 94.3 fL Normal 81.0-99.0 [facility] Comment on above: Performed By: #### C BC #### [facility] [address] [place] [address] Dr. Bhumi Lewis MONO # 0.4 103/ul Normal 0.3-0.8 [facility] Comment on above: Performed By: #### C BC #### [facility] [address] [place] [address] Dr. Bhumi Lewis Monocytes/100 WBC (Bld) 9.3 % Normal 1.7-12.0 [facility] Comment on above: Performed By: #### C BC #### [facility] [address] [place] [address] Dr. Bhumi Lewis NEUT # 2.6 103/ul Normal 1.4-6.5 [facility] Comment on above: Performed By: #### C BC #### [facility] [address] [place] [address] Dr. Bhumi Lewis Neutrophils/100 WBC (Bld) 56.9 % Normal 43.0-75.0 [facility] Comment on above: Performed By: #### C BC #### [facility] [address] [place] [address] Dr. Bhumi Lewis Platelet mean volume (Bld) [Entitic vol] 9.2 fL Critically low 9.5-13.5 [facility] Comment on above: Performed By: #### C BC #### [facility] [address] [place] [address] Dr. Bhumi Lewis PLT 249 103/ul Normal 150-450 [facility] Comment on above: Performed By: #### C BC #### [facility] [address] [place] [address] Dr. Bhumi Lewis RBC 4.24 106/ul Normal 4.20-5.40 [facility] Comment on above: Performed By: #### C BC #### [facility] [address] [place] [address] Dr. Bhumi Lewis WBC 4.5 103/ul Normal 4.0-11.0 [facility] Comment on above: Performed By: #### C BC #### [facility] [address] [place] [address] Dr. Bhumi Lewis FREE THYROXINE INDEX T7on FTI 2.18 Normal 1.30-4.50 [facility] Comment on above: Performed By: #### T SH, LIVER, T7, BNP, BMP #### [facility] [address] [place] [address] Dr. Bhumi Lewis T3U 33.0 % Normal 30.0-39.0 [facility] Comment on above: Performed By: #### T SH, LIVER, T7, BNP, BMP #### [facility] [address] [place] [address] Dr. Bhumi Lewis T4 [Mass/Vol] 6.60 ug/dL Normal 4.80-13.90 [facility] Comment on above: Performed By: #### T SH, LIVER, T7, BNP, BMP #### [facility] [address] [place] [address] Dr. Bhumi Lewis LIVER PROFILEon 07-24-2022 Albumin [Mass/Vol] 3.4 g/dL Normal 3.4-5.0 [facility] Comment on above: Performed By: #### T SH, LIVER, T7, BNP, BMP #### [facility] [address] [address] [address] Bhumi Lewis Albumin/Globulin [Mass ratio] 0.9 {ratio} Normal [facility] Comment on above: Performed By: #### T SH, LIVER, T7, BNP, BMP #### [facility] [address] [place] [address] Dr. Bhumi Lewis ALP [Catalytic activity/Vol] 66 U/L Normal 46-116 [facility] Comment on above: Performed By: #### T SH, LIVER, T7, BNP, BMP #### [facility] [address] [address] [address] Bhumi Lewis ALT [Catalytic activity/Vol] 26 U/L Normal 14-59 [facility] Comment on above: Performed By: #### T SH, LIVER, T7, BNP, BMP #### [facility] [address] [address] [address] Bhumi Lewis AST [Catalytic activity/Vol] 21 U/L Normal 15-37 [facility] Comment on above: Performed By: #### T SH, LIVER, T7, BNP, BMP #### [facility] [address] [address] [address] Bhumi DILLONI, CONJUGATED 0.1 mg/dL Normal 0.0-0.2 [facility] Comment on above: Performed By: #### T SH, LIVER, T7, BNP, BMP #### [facility] [address] [place] [address] Dr. Bhumi Lewis Bilirubin [Mass/Vol] 0.2 mg/dL Normal 0.2-1.0 [facility] Comment on above: Performed By: #### T SH, LIVER, T7, BNP, BMP #### [facility] [address] [place] [address] Dr. Bhumi Lewis Globulin (S) [Mass/Vol] 4.0 g/dL Normal [facility] Comment on above: Performed By: #### T SH, LIVER, T7, BNP, BMP #### [facility] [address] [place] [address] Dr. Bhumi Lewis Protein [Mass/Vol] 7.4 g/dL Normal 6.4-8.2 [facility] Comment on above: Performed By: #### T SH, LIVER, T7, BNP, BMP #### [facility] [address] [place] [address] Dr. Bhumi Lewis MAMM SCREEN 3D SILVANA CADon 07-24-2022 MG MAMM SCREEN 3D SILVANA CAD Patient: CORI LEES Exam Date: 07/24/2022 : 1950 Gender:F Ordering : DR RICO HAMMER . Admission #: [id number] Family : Order #: [id number] CLICK HERE TO VIEW EXAM RADIOLOGY REPORT PROCEDURE: MAMMOGRAM SCREENING 3D BILATERAL CAD COMPARISON: MG MAMM SCREEN 3D SILVANA CAD, 07/16/2020. MG MAMM SCREEN 3D SILVANA CAD, 07/22/2021. INDICATIONS: Screening mammography Calculator Name NCI Breast Cancer Risk Assessment Tool 5 Year Breast Cancer Risk 2.00% Lifetime Breast Cancer Risk 4.80% Personal Breast Cancer No Personal Ovarian Cancer No Treatments None Family Cancers Mother with lung cancer at age 80; Grandfather-maternal with colon cancer at age 90. LOCATION: [facility] BREAST COMPOSITION: Almost entirely fatty. FINDINGS: [...] MD on 07/27/2022 at 09:52 Normal [facility] PROF CHEM 8 (BAS METB)on Anion gap [Moles/Vol] 15.0 mmol/L Normal [facility] Comment on above: Performed By: #### T SH, LIVER, T7, BNP, BMP #### [facility] [address] [place] [address] Dr. Bhumi Lewis Calcium [Mass/Vol] 9.0 mg/dL Normal 8.5-10.1 [facility] Comment on above: Performed By: #### T SH, LIVER, T7, BNP, BMP #### [facility] [address] [place] [address] Dr. Bhumi Lewis Chloride [Moles/Vol] 107 mmol/L Normal 98-107 [facility] Comment on above: Performed By: #### T SH, LIVER, T7, BNP, BMP #### [facility] [address] [place] [address] Dr. Bhumi Lewis CO2 [Moles/Vol] 26.7 mmol/L Normal 21.0-32.0 [facility] Comment on above: Performed By: #### T SH, LIVER, T7, BNP, BMP #### [facility] [address] [place] [address] Dr. Bhumi Lewis Creatinine [Mass/Vol] 1.01 mg/dL Normal 0.55-1.02 [facility] Comment on above: Performed By: #### T SH, LIVER, T7, BNP, BMP #### [facility] [address] [address] [address] Bhumi Lewis EGFR-AF MOLDOVAN >60 Normal >=60 [facility] Comment on above: Performed By: #### T SH, LIVER, T7, BNP, BMP #### [facility] [address] [address] [address] Bhumi Lewis EGFR-NON AF MOLDOVAN 54 mL/min/1.73m2 Critically low >=60 [facility] Comment on above: Performed By: #### T SH, LIVER, T7, BNP, BMP #### [facility] [address] [place] [address] Dr. Bhumi Lewis Glucose [Mass/Vol] 100 mg/dL Normal 74-106 [facility] Comment on above: Performed By: #### T SH, LIVER, T7, BNP, BMP #### [facility] [address] [place] [address] Dr. Bhumi Lewis Potassium [Moles/Vol] 4.7 mmol/L Normal 3.5-5.1 [facility] Comment on above: Performed By: #### T SH, LIVER, T7, BNP, BMP #### [facility] [address] [place] [address] Dr. Bhumi Lewis Sodium [Moles/Vol] 144 mmol/L Normal 136-145 [facility] Comment on above: Performed By: #### T SH, LIVER, T7, BNP, BMP #### [facility] [address] [place] [address] Dr. Bhumi Lewis Urea nitrogen [Mass/Vol] 22.0 mg/dL Critically high 7.0-18.0 [facility] Comment on above: Performed By: #### T SH, LIVER, T7, BNP, BMP #### [facility] [address] [place] [address] Dr. Bhumi Lewis Urea nitrogen/Creatinine [Mass ratio] 21.8 mg/mg Normal [facility] Comment on above: Performed By: #### T SH, LIVER, T7, BNP, BMP #### [facility] [address] [place] [address] Dr. Bhumi Lewis TSHon 07-24-2022 TSH 2.303 uIU/mL Normal 0.358-3.740 [facility] Comment on above: Performed By: #### T SH, LIVER, T7, BNP, BMP #### [facility] [address] [place], [place] [address] Dr. Bhumi Lewis Reminderson 05-29-2022 Reminders - From: Hien White LPN To: GSN - Clinical; Sent: 05/29/2022 13:21:17 EST Show up: 04/26/2032 07:00:00 EST Subject: colonoscopy recall Due Date/Time: 05/27/2032 07:00:00 EST Reminder/Recall Patient is due for screening colonoscopy 05/27/2032. Normal [facility] Outside Colonoscopyon 2022 Outside Colonoscopy [id number] .[id number]:127 Normal [facility] Consent for Procedure/Surger yon 04-27-2022 Consent for Procedure/Surgery [id number] .[id number]:127 Normal [facility] XR DEXA BONE DENSITYon 02-25 XR [...] by: RUTH CARTER Date: 2022-02-25 08:56 Normal [facility] Physician Referralon 022 Physician Referral [id number]:127 Normal [facility] INSULINon 12-03-2021 Insulin 10.4 uIU/mL Normal 2.6-24.9 [facility] Comment on above: Performed By: #### I NSULIN ####[facility] [address] [place], [place] [address]LvDr. Bhumi Lewis T4, T3U, FTI [facility] 12-03 Free Thyroxine Index 1.4 Normal 1.2-4.9 [facility] Comment on above: Performed By: #### T HYLC #### [facility] [address] [address] [address] Bhumi Lewis T3 Uptake 23 % Critically low 24-39 [facility] Comment on above: Performed By: #### T HYLC #### [facility] [address] [address] [address] Bhumi Lewis T4 [Mass/Vol] 6.2 ug/dL Normal 4.5-12.0 [facility] Comment on above: Performed By: #### T HYLC #### [facility] [address] [address] [address] Bhumi Lewis VIT D 25-OH [facility] 2021 Vitamin D, 25-Hydroxy 34.6 ng/mL Normal 30.0-100.0 [facility] Comment on above: Result Comment: Romy min D deficiency has been defined by the [employer] of [employer] and an Endocrine Society practice guideline as a level of serum 25-OH vitamin D less than 20 ng/mL (1,2). The Endocrine Society went on to further define vitamin D insufficiency as a level between 21 and 29 ng/mL (2). 1. IOM ([employer] of [employer]). 2010. Dietary reference intakes for calcium and D. [place]: The National Academies Press. 2. Elizabeth MF, Bora [place], Yumi JAIMES, et al. Evaluation, treatment, and prevention of vitamin D deficiency: an Endocrine Society clinical practice guideline. JCEM. 2010; 96(7):1911-30. Performed By: #### V ITADLC ####[facility] [address] [place], [place] [address]Dr. Bhumi Lewis BNPon 12-02-2021 Natriuretic peptide B (Bld) [Mass/Vol] 225.0 pg/mL Normal <=900.0 [facility] Comment on above: Performed By: #### T SH, BNP, CMP, LIPID ####[facility] [address] [place], [place] [address]Dr. Bhumi Joshua CBC AUTO DIFFon 12-02-2021 BASO # 0.0 103/ul Normal 0.0-0.1 [facility] Comment on above: Performed By: #### C BC ####[facility] [address] [place], [place] [address]Dr. Bhumi Lewis Basophils/100 WBC (Bld) 0.2 % Normal 0.2-2.0 [facility] Comment on above: Performed By: #### C BC ####[facility] [address] [place], [place] [address]Dr. Bhumi Lewis EO # 0.1 103/ul Normal 0.0-0.7 [facility] [facility] Comment on above: Performed By: #### C BC ####[facility] Pdgsijw[address] [place], [place] [address]Dr. Bhumi Lewis Eosinophils/100 WBC (Bld) 2.9 % Normal 0.9-7.0 [facility] Comment on above: Performed By: #### C BC ####[facility] Ekklrbkynf[address] [place], [place] [address]Dr. Bhumi Lewis Erythrocyte distribution width (RBC) [Ratio] 13.2 % Normal 11.0-15.0 [facility] Comment on above: Performed By: #### C BC ####[facility] Ebilauayhe[address] [place], [place] [address]Dr. Bhumi Lewis Hematocrit (Bld) [Volume fraction] 41.6 % Normal 36.0-48.0 [facility] Comment on above: Performed By: #### C BC ####[facility] [address] [place] [id number]. Bhumi Lewis Hemoglobin (Bld) [Mass/Vol] 13.4 g/dL Normal 12.0-16.0 [facility] Comment on above: Performed By: #### C BC ####[facility] Fdjszmqgpg[address] [place] [id number]. Bhumi Lewis IG # 0.01 10e3/ul Normal 0.00-0.03 [facility] Comment on above: Performed By: #### C BC ####[facility] Gsp[address]muicps[address] [place] [address]Dr. Bhumi Lewis IG % 0.2 % Normal 0.0-0.5 [facility] Comment on above: Performed By: #### C BC ####[facility] [address] [place] [address]Dr. Bhumi Lewis LYMPH # 1.5 103/ul Normal 1.2-3.8 [facility] Comment on above: Performed By: #### C BC ####[facility] J[address]fgxnl[address] [place] [id number]. Bhumi Lewis Lymphocytes/100 WBC (Bld) 32.2 % Normal 20.5-60.0 [facility] Comment on above: Performed By: #### C BC ####[facility] Demxtknrfd6[address] [place] [address]Dr. Bhumi Lewis MANUAL DIFF REQ NO Normal [facility] Comment on above: Performed By: #### C BC ####[facility] S[address]ius[address] [place] [id number]. Bhumi Lewis MCH (RBC) [Entitic mass] 31.7 pg Normal 26.7-34.0 [facility] Comment on above: Performed By: #### C BC ####[facility] Gkybqkjswk[address] [place] [address]Dr. Bhumi Lewis MCHC (RBC) [Mass/Vol] 32.2 g/dL Normal 29.9-35.2 [facility] Comment on above: Performed By: #### C BC ####[facility] Hbphwtqxrs[address] [place] [address]Dr. Bhumi Lewis MCV (RBC) [Entitic vol] 98.3 fL Normal 81.0-99.0 [facility] Comment on above: Performed By: #### C BC ####[facility] [address]cl[address] [place] [address]Dr. Bhumi Lewis MONO # 0.4 103/ul Normal 0.3-0.8 [facility] Comment on above: Performed By: #### C BC ####[facility] Weqq[address]exqb[address] [place] [address]Dr. Bhumi Joshua Monocytes/100 WBC (Bld) 7.4 % Normal 1.7-12.0 [facility] Comment on above: Performed By: #### C BC ####[facility] Ghmnuhwmts[address] [place], [place] [address]Dr. Bhumi Lewis NEUT # 2.7 103/ul Normal 1.4-6.5 [facility] Comment on above: Performed By: #### C BC ####[facility] Phortbyozk[address] [place], [place] [address]Dr. Bhumi Joshua Neutrophils/100 WBC (Bld) 57.1 % Normal 43.0-75.0 [facility] Comment on above: Performed By: #### C BC ####[facility] Ictfv[address]zfu[address] [place], [place] [address]Dr. Bhumi Joshua Platelet mean volume (Bld) [Entitic vol] 9.1 fL Critically low 9.5-13.5 [facility] Comment on above: Performed By: #### C BC ####[facility] Dbddoxvnms[address] [place], [place] [address]Dr. Bhumi Joshua PLT 243 103/ul Normal 150-450 [facility] Comment on above: Performed By: #### C BC ####[facility] Emnq[address]zywh[address] [place], [place] [address]Dr. Bhumi Joshua RBC 4.23 106/ul Normal 4.20-5.40 [facility] Comment on above: Performed By: #### C BC ####[facility] Ibjb[address] [place], [place] [address]DrSuzy Lewis WBC 4.8 103/ul Normal 4.0-11.0 [facility] Comment on above: Performed By: #### C BC ####[facility] [address]vxbqz[address] [place] [id number]. Buhmi Lewis GLYCOHEMOGLOBIN A1Con 2021 ADA RECOMMENDATION SEE BELOW Normal [facility] Comment on above: Result Comment: ADA RECOMMENDED LIMIT 4.0 - 6.0 ADA THERAPEUTIC TARGET < 7.0 ACTION SUGGESTED > 7.0 Performed By: #### A 1C ####[facility] [address] [place] [address]DrSuzy Lewis Glucose [Mass/Vol] 120 mg/dL Normal [facility] Comment on above: Performed By: #### A 1C ####[facility] [address]ujloh[address] [place] [address]DrSuzy Lewis HbA1c (Bld) [Mass fraction] 5.8 % Normal 4.5-6.2 [facility] Comment on above: Performed By: #### A 1C ####[facility] Tinpat[address]ny[address] [place] [address]DrSuzy Lewis IRONon 12-02-2021 Iron [Mass/Vol] 95.0 ug/dL Normal 50.0-170.0 [facility] Comment on above: Performed By: #### I HIWOT #### [facility] [address] [place], [place] [address] Dr. Bhumi Lewis LIPID PROFILEon 12-02-2021 CHOL-HDL RATIO NORM SEE BELOW Normal [facility] Comment on above: Result Comment: 3.3 - 4.4 LOW RISK 4.4 - 7.1 AVERAGE RISK 7.1 - 11.0 MODERATE RISK >11.0 HIGH RISK Performed By: #### T SH, BNP, CMP, LIPID ####[facility] [address]qvde[address] [place] [phone] Lewis Cholesterol [Mass/Vol] 218 mg/dL Critically high <=200 [facility] Comment on above: Performed By: #### T SH, BNP, CMP, LIPID ####[facility] Z[address]udouv[address] [place] [address]Dr. Bhumi Lewis Cholesterol in HDL [Mass/Vol] 62 mg/dL Critically high 40-60 [facility] Comment on above: Performed By: #### T SH, BNP, CMP, LIPID ####[facility] Tzfgthpjyj[address] [place] [address]Dr. Bhumi Lewis Cholesterol in LDL [Mass/Vol] 126.6 mg/dL Normal [facility] Comment on above: Performed By: #### T SH, BNP, CMP, LIPID ####[facility] [address]zd[address]gr[address] [place] [address]Dr. Bhumi Lewis Cholesterol.total/Ch olesterol in HDL [Mass ratio] 3.5 {ratio} Normal [facility] Comment on above: Performed By: #### T SH, BNP, CMP, LIPID ####[facility] [address] [place] [address]Dr. Bhumi Lewis HDL NORMAL > or = 60 mg/dl - LO W CARDIOVASCULAR RISK <40 mg/dl - HIGH CARDIOVASCULAR RISK Normal [facility] Comment on above: Performed By: #### T SH, BNP, CMP, LIPID ####[facility] [address]tf[address] [place] [address]Dr. Bhumi Lewis LDL CALC NORMAL SEE BELOW Normal [facility] Comment on above: Result Comment: <100 mg/dl OPTIMAL 100 - 129 mg/dl NEAR OR ABOVE OPTIMAL 130 - 159 mg/dl BORDERLINE HIGH 160 - 189 mg/dl HIGH >190 mg/dl VERY HIGH Performed By: #### T SH, BNP, CMP, LIPID ####[facility] Vagiabyzzm[address] [place] [phone]. Bhumi Lewis Triglyceride [Mass/Vol] 147 mg/dL Normal <=150 [facility] Comment on above: Performed By: #### T SH, BNP, CMP, LIPID ####[facility] Bk[address]fjhi[address] [place] [address]Dr. Bhumi Lewis VLDL CALC 29.4 mg/dL Normal [facility] Comment on above: Performed By: #### T SH, BNP, CMP, LIPID ####[facility] Ak[address]ch[address]hx[address] [place] [address]Dr. Bhumi Lewis PROF 14(COMP METB)on 022 Albumin [Mass/Vol] 3.6 g/dL Normal 3.4-5.0 [facility] Comment on above: Performed By: #### T SH, BNP, CMP, LIPID ####[facility] Xxdjlyacvr3[address] [place] [address]Dr. Bhumi Lewis Albumin/Globulin [Mass ratio] 1.0 {ratio} Normal [facility] Comment on above: Performed By: #### T SH, BNP, CMP, LIPID ####[facility] Glpclzrxon[address] [place], [place] [address]Dr. Bhumi Lewis ALP [Catalytic activity/Vol] 64 U/L Normal 46-116 [facility] Comment on above: Performed By: #### T SH, BNP, CMP, LIPID ####[facility] Xcoxjmtuyi[address] [place], [place] [address]Dr. Bhumi Lewis ALT [Catalytic activity/Vol] 21 U/L Normal 14-59 [facility] Comment on above: Performed By: #### T SH, BNP, CMP, LIPID ####[facility] L[address]btqpkxia[address] [place], [place] [address]Dr. Bhumi Lewis Anion gap [Moles/Vol] 13.5 mmol/L Normal [facility] Comment on above: Performed By: #### T SH, BNP, CMP, LIPID ####[facility] Nvuknnbmap[address] [place], [place] [address]Dr. Bhumi Lewis AST [Catalytic activity/Vol] 21 U/L Normal 15-37 [facility] Comment on above: Performed By: #### T SH, BNP, CMP, LIPID ####[facility] [address]vcztvmrg[address] [place] [address]Dr. Bhumi Lewis Bilirubin [Mass/Vol] 0.4 mg/dL Normal 0.2-1.0 [facility] Comment on above: Performed By: #### T SH, BNP, CMP, LIPID ####[facility] J[address]wurlmvdm[address] [place], [place] [address]Dr. Bhumi Lewis Calcium [Mass/Vol] 9.0 mg/dL Normal 8.5-10.1 [facility] Comment on above: Performed By: #### T SH, BNP, CMP, LIPID ####[facility] [address] [place] [address]Dr. Bhumi Lewis Chloride [Moles/Vol] 105 mmol/L Normal 98-107 [facility] Comment on above: Performed By: #### T SH, BNP, CMP, LIPID ####[facility] Gigquctcqe[address] [place] [address]Dr. Bhumi Lewis CO2 [Moles/Vol] 24.7 mmol/L Normal 21.0-32.0 [facility] Comment on above: Performed By: #### T SH, BNP, CMP, LIPID ####[facility] [address]xpzyx[address] [place] [address]Dr. Bhumi Lewis Creatinine [Mass/Vol] 1.04 mg/dL Critically high 0.55-1.02 [facility] Comment on above: Performed By: #### T SH, BNP, CMP, LIPID ####[facility] [address]blah[address] [place] [address]Dr. Bhumi Lewis EGFR-AF MOLDOVAN >60 Normal >=60 [facility] Comment on above: Performed By: #### T SH, BNP, CMP, LIPID ####[facility] [address]dzxqlopt[address] [place] [address]Dr. Bhumi Lewis EGFR-NON AF MOLDOVAN 52 mL/min/1.73m2 Critically low >=60 [facility] Comment on above: Performed By: #### T SH, BNP, CMP, LIPID ####[facility] [address]zsrm[address] [place] [address]Dr. Bhumi Lewis Globulin (S) [Mass/Vol] 3.6 g/dL Normal [facility] Comment on above: Performed By: #### T SH, BNP, CMP, LIPID ####[facility] [address]obf[address] [place] [address]Dr. Bhumi Lewis Glucose [Mass/Vol] 96 mg/dL Normal 74-106 [facility] Comment on above: Performed By: #### T SH, BNP, CMP, LIPID ####[facility] T[address]ryhxg[address] [place] [address]Dr. Bhumi Lewis Potassium [Moles/Vol] 4.2 mmol/L Normal 3.5-5.1 [facility] Comment on above: Performed By: #### T SH, BNP, CMP, LIPID ####[facility] Eztvwtdldu[address] [place] [address]Dr. Bhumi Lewis Protein [Mass/Vol] 7.2 g/dL Normal 6.4-8.2 [facility] Comment on above: Performed By: #### T SH, BNP, CMP, LIPID ####[facility] [address]zpubvif[address] [place] [address]Dr. Bhumi Lewis Sodium [Moles/Vol] 139 mmol/L Normal 136-145 [facility] Comment on above: Performed By: #### T SH, BNP, CMP, LIPID ####[facility] [address]foqilz[address] [place] [address]Dr. Bhumi Lewis Urea nitrogen [Mass/Vol] 20.0 mg/dL Critically high 7.0-18.0 [facility] Comment on above: Performed By: #### T SH, BNP, CMP, LIPID ####[facility] [address]rc[address] [place] [address]Dr. Bhumi Lewis Urea nitrogen/Creatinine [Mass ratio] 19.2 mg/mg Normal [facility] Comment on above: Performed By: #### T SH, BNP, CMP, LIPID ####[facility] [address] [place] [address]Dr. Bhumi Lewis TSHon 12-02-2021 TSH 2.178 uIU/mL Normal 0.358-3.740 [facility] Comment on above: Performed By: #### T SH, BNP, CMP, LIPID ####[facility] [address] [place] [address]Dr. Bhumi Lewis MRI Shoulder w/o Lefton 09-12 [...] by Claudio Rollins on 10/10/2021 1356 Normal [facility] Ambulatory Visit Summaryon 0 10-08-2021 Ambulatory Visit Summary CORI LEES :1950 Visit Date:10/08/2021 Ambulatory Visit Instructions Your Diagnosis Urethral caruncle Vaginal atrophy Pelvic pain Cervical polyp Tests Performed Urnls Dip Stick Auto w/o Microscopy POC 92157 Your Care Team Attending Physician - Lorena Lee MD Primary Care Physician - Rico Hammer MD This Is Your Medications List [...] Story, URO When: Where: [address] [place] [phone] Medications What How Much When Instructions Unchanged [...] Urnls Dip Stick Auto w/o Microscopy POC 40263 (10/08/2021) Bilirubin Urine Dipstick - Negative Blood Urine Dipstick - Trace-intact Glucose Urine Dipstick - Negative Ketones Urine Dipstick - Negative Leukocytes Urine Dipstick - Negative Nitrite Urine Dipstick - Negative Protein Urine Dipstick - Negative Specific [place] Urine Dipstick - >=1.030 Urine Appearance Urine [...] these instructions at home: Medicines ? Take kjkt-ayb-dlwrvhe and prescription medicines only as told by [...] belly pain for any changes. ? Take ckaa-ikl-doumdos and prescription medicines only as told by your do (more content not included)... Normal [facility] Patient Educationon 10-09-19 Patient Education Gastroenterology Abdominal Pain, Adult Many things can cause belly (abdominal) pain. Most times, belly pain is not dangerous. Many cases of belly pain can be watched and treated at home. Sometimes, though, belly pain is serious. Your doctor will try to find the cause of your belly pain. Follow these instructions at home: Medicines ? Take zftz-vja-gkerfgb and prescription medicines only as told by [...] belly pain for any changes. ? Take jpjc-wha-iukiybu and prescription medicines only as told by [...] Document Reviewed: 08/07/2019 Elsevier Patient Education ? 2019 [employer]. Mehul Rosado [facility] Urology Office/Clinic Noteon 10-08-2021 Urology Office/Clinic [...] this time. She has not seen her sulfuric acid plant operator as of yet for the cervical polyp. [...] Noted on vaginoscopy has not seen her sulfuric acid plant operator as of yet for the cervical polyp. Educated pt that she needs to see her HEALTH TEACHER to f/u with this. Follow-up With When Contact Information Jesus WALSH, Lorena Morocho, URL, URO [address], [place] [phone] Additional Instructions: PRN Patient Education Abdominal Pain, Adult, Eccw-gf-Iquj I, Beba Rodriguez, personally scribed for Dr. [...] Protein Urine Dipstick: Negative (10/08/21 09:46:00) Specific [place] Urine Dipstick: >=1.030 (10/08/21 09:46:00) Urine Appearance Urine Dipstick: Clear (10/08/21 09:46:00) Urine Color Urine Dipstick: Yellow (10/08/21 09:46:00) Urobilinogen Urine Dipstick: Normal 0.2-1 EU/dl (10/08/21 0 (more content not included)... [facility] Comment on above: Result Comment: Elec tronically Signed By: Lorena Lee MD\.br\Date and Time Signed: 10/08/21 10:13 EDT\.br\Electronically Co-Signed By: Beba Rodriguez MA\.br\Date and Time Co-Signed: 10/08/21 10:06 EDT Consent for Procedure/Surger yon 06-24-2021 Consent for Procedure/Surgery [id number] .00CD:127 [facility] Urology Office/Clinic Noteon 06-24-2021 Urology Office/Clinic Note [...] pain) Improved on topical estrogen. Ordered: Cystourethroscopy 70609 4. Cervical polyp (N84.1: Polyp of cervix [...] denies prior gynecologic surgeries or prior abnormal HEALTH TEACHER workups. Denies vaginal bleeding or spotting. Pelvic pain improved now on topical estrogen, however given new findings on vaginoscopy, recommend further evaluation with Polymer Chemist. Normal [facility] Comment on above: Result Comment: Elec tronically Signed By: Jesus WALSH, Lorena Randhawa.esrgey\Date and Time Signed: 06/24/21 09:27 EDT Formson 06-12-2021 Forms [id number] .00CD:127 Normal [facility] Physician Referralon 022 Physician Referral [id number] 1.00CD:127 Normal [facility] Vital Signs Date Time Vital Sign Value Performing Clinician Lavern bangura 02-29-2024 13:13-0500 Diastolic blood pressure 74 mm[Hg] Kobe Marvin MD Work Phone: [facility] 02-29-2024 13:13-0500 Systolic blood pressure 126 mm[Hg] Kobe Marvin MD Work Phone: [facility] 04-24-2022 14:15-0500 Blood Pressure Location Noam N[facility] 04-24-2022 14:15-0500 Diastolic blood pressure 76 mm[Hg] Noam N[facility] 04-24-2022 14:15-0500 Heart rate 68 /min Noam NILL [facility] 04-24-2022 14:15-0500 Respiratory rate 16 /min Noam N[facility] 04-24-2022 14:15-0500 Systolic blood pressure 120 mm[Hg] Noam N[facility] 10-08-2021 09:47-0400 Blood Pressure Location Lorena Lue [facility] 10-08-2021 09:47-0400 Diastolic blood pressure 67 mm[Hg] Lorena Lue [facility] 10-08-2021 09:47-0400 Heart rate 61 /min Lorena Lue [facility] 10-08-2021 09:47-0400 Respiratory rate 16 /min Lorena Lue [facility] 10-08-2021 09:47-0400 Systolic blood pressure 130 mm[Hg] [facility] Date Encounter Type Care Provider Facility Start: 05-16-2024 End: 05-16-2024 Bamboo flowsheet Refugio Bryson Felter CREDIT INVESTIGATOR-TELEVISION SCRIPT WRITER Work Phone: [facility] Start: 05-16-2024 End: 05-16-2024 Bamboo flowsheet Refugio Bryson Felter CREDIT INVESTIGATOR-TELEVISION SCRIPT WRITER Work Phone: [facility] Start: 05-16-2024 End: 05-16-2024 Office outpatient new 20 minutes Refugio Bryson Felter CREDIT INVESTIGATOR-TELEVISION SCRIPT WRITER Work Phone: [facility] Comment on above: Seborrheic keratosis (Primary Dx); Actinic keratosis Start: 05-16-2024 End: 05-16-2024 ambulatory REFUGIO ANGUIANOER Not Available Start: 03-23-2024 End: 03-23-2024 Telephone encounter Kenn Canales PT Work Phone: [facility] Start: 03-21-2024 End: 03-21-2024 Bamboo flowsheet Kenn Canales PT Work Phone: [facility] Start: 03-21-2024 End: 03-21-2024 Bamboo flowsheet Kenn Canales PT Work Phone: [facility] Start: 03-21-2024 End: 03-21-2024 ambulatory Kenn Canales PT Work Phone: [facility] Comment on above: BPPV (benign paroxys mal positional vertigo), right (Primary Dx) Start: 03-17-2024 End: 03-17-2024 Bamboo flowsheet Sonal Worthy PT Work Phone: [facility] Start: 03-17-2024 End: 03-17-2024 Bamboo flowsheet Sonal Worthy PT Work Phone: [facility] Start: 03-17-2024 End: 03-17-2024 ambulatory Sonal Worthy PT Work Phone: [facility] Comment on above: BPPV (benign paroxys mal positional vertigo), right (Primary Dx) Start: 03-14-2024 End: 03-14-2024 Bamboo flowsheet Sonal Worthy PT Work Phone: [facility] Start: 03-14-2024 End: 03-14-2024 Bamboo flowsheet Sonal Worthy PT Work Phone: [facility] Start: 03-14-2024 End: 03-14-2024 ambulatory Sonal Worthy PT Work Phone: [facility] Comment on above: BPPV (benign paroxys mal positional vertigo), right (Primary Dx) Start: 03-06-2024 End: 03-06-2024 Bamboo flowsheet Sonal Worthy PT Work Phone: [facility] Start: 03-06-2024 End: 03-06-2024 Bamboo flowsheet Sonal Worthy PT Work Phone: [facility] Start: 03-06-2024 End: 03-06-2024 ambulatory Sonal Worthy PT Work Phone: [facility] Comment on above: BPPV (benign paroxys mal positional vertigo), right (Primary Dx) Start: 03-02-2024 End: 03-02-2024 Bamboo flowsheet Sonal Worthy PT Work Phone: [facility] Start: 03-02-2024 End: 03-02-2024 Bamboo flowsheet Sonal Worthy PT Work Phone: [facility] Start: 03-02-2024 End: 03-02-2024 ambulatory Sonal Worthy PT Work Phone: [facility] Comment on above: BPPV (benign paroxys mal positional vertigo), right Start: 02-29-2024 End: 02-29-2024 Bamboo flowsheet Kobe Marvin MD Work Phone: [facility] Start: 02-29-2024 End: 02-29-2024 Bamboo flowsheet Kobe Marvin MD Work Phone: [facility] Start: 02-29-2024 End: 02-29-2024 Office outpatient new 45 minutes Kobe Marvin MD Work Phone: [facility] Comment on above: Bilateral tinnitus ( Primary Dx); Sensorineural hearing loss (SNHL), bilateral; BPPV (benign paroxysmal positional vertigo), right Start: 02-29-2024 End: 02-29-2024 ambulatory KOBE MARVIN Not Available Start: 02-23-2024 End: 02-23-2024 Bamboo flowsheet Kita Braydon Raine CCC-A Work Phone: [facility] Start: 02-23-2024 End: 02-23-2024 Bamboo flowsheet Kita Braydon GumGum CCC-A Work Phone: [facility] Start: 02-23-2024 End: 02-23-2024 Clinical Support Kita Braydon Raine CCC-A Work Phone: [facility] Comment on above: Sensorineural hearin g loss, bilateral (Primary Dx); Tinnitus, bilateral Start: 07-25-2022 End: 07-25-[address] RICO HAMMER . Facility: Start: 07-24-2022 End: 07-25-[address] RICO HAMMER . Facility:[facility] Start: 05-27-2022 End: 05-28-2022 ambulatory Noam LEDESMA Facility:CD:[id number] Start: 04-24-2022 End: 04-25-2022 ambulatory Rico Hammer Facility:[facility] Start: 04-24-2022 End: 04-24-2022 Patient encounter procedure Noam LEDESMA [facility] Start: 02-25-2022 End: 02-26-[address] RICO HAMMER . Facility: Start: 02-13-2022 ambulatory Rico Hammer Facility:[facility] Start: 12-02-2021 End: 12-03-[address] RICO HAMMER . Facility: Start: 10-08-2021 End: 10-09-2021 ambulatory Lorena Lee Facility:[facility] Start: 10-08-2021 End: 10-08-2021 Patient encounter procedure Lorena Lee [facility] Start: 10-03-2021 ambulatory Lorena Lee Facility:[facility] Start: 09-26-2021 ambulatory Lorena Lee Facility:[facility] [place] Start: 06-24-2021 ambulatory Rico Hammer Facility:[facility] Start: 06-24-2021 End: 06-25-2021 ambulatory Lorena Lee Facility:[facility] Start: 06-23-2021 ambulatory Rico Hammer Facility:[facility] Procedures Date Procedure Procedure Detail Performing Clinician Start: 05-16-2024 CRYOTHERAPY SKIN LESION Refugio Billingsley CREDIT INVESTIGATOR-TELEVISION SCRIPT WRITER Work Phone: Start: 02-23-2024 AUDITORY FUNCTION TESTS Kita Ni [facility] Work Phone: Start: 06-24-2021 Cystoscopy Lorena Lee Start: 10-12-2007 Colonoscopy Kobe ambriz MD Work Phone: Start: 10-12-2007 Colonoscopy Noam NI LL Cholecystectomy Lorena Lue Colonoscopy Lorena Lue Decompression of med greta nerve Noam NILL Hammer toe operation Noam NILL History of nasal sin us surgery Noam NILL Insertion of hip prosthesis Lorena Lee Repair of hip Noam LEDESMA Plan of Treatment Date Care Activity Detail Author Start: 05-16-2024 End: 05-16-2024 Patient encounter procedure 05/16/2024 8:40 AM EST Office Visit [facility] [address] [place] [phone] ChasRefugio flores, CREDIT INVESTIGATOR-TELEVISION SCRIPT WRITER [address] [place] [address] Arrived [facility] Comment on above: Arrived Start: 03-24-2024 End: 03-24-2024 ambulatory 03/24/2024 11:00 AM EST Treatment [facility] [address] [place] [phone] Kenn Canales, PT [address] [place] [address] [facility] Start: 03-21-2024 End: 03-21-2024 ambulatory [facility] Comment on above: BPPV (benign paroxys mal positional vertigo), right (Primary Dx) Start: 03-17-2024 End: 03-17-2024 ambulatory 03/17/2024 8:00 AM EST Treatment [facility] [address] [place] [address] Sonal Worthy, PT [address] [place], [place] [id number] [facility] Start: 03-14-2024 End: 03-14-2024 ambulatory [facility] Comment on above: Arrived Start: 03-02-2024 End: 03-02-2024 ambulatory [facility] Comment on above: BPPV (benign paroxys mal positional vertigo), right Start: 02-29-2024 End: 02-29-2024 Patient encounter procedure 02/29/2024 1:10 PM EST Office Visit [facility] [address] [place] [id number] Kobe Marvin MD [address] [place] [address] Arrived [facility] Comment on above: Arrived Start: 10-11-2017 Screening for malign ant neoplasm of colon [facility] Start: 08-25-2017 Pneumococcal Vaccine : 65+ Years (2 of 2 - PCV) Pneumococcal Vaccine: 65+ Years (2 of 2 - PCV) [facility] Start: 1950 Screening for malign ant neoplasm of colon [facility] Immunizations Immunization Date Immunization Notes Care Provider Fa cility 01-08-2022 SARS-CoV-2 (COVID-19 ) [id number].[id number] Noam LEDESMA [facility] 12-12-2021 influenza virus vaccine, unspecified formulation Noam LEDESMA [facility] 07-22-2021 SARS-CoV-2 (COVID-19 ) mRNA-1273 vaccine Noam LEDESMA [facility] 02-12-2021 SARS-CoV-2 (COVID-19 ) mRNA-1273 vaccine Noam LEDESMA [facility] 01-10-2021 SARS-CoV-2 (COVID-19 ) Ad26 vaccine, recombinant Lorena Lue [facility] 06-10-2020 SARS-CoV-2 (COVID-19 ) Ad26 vaccine, recombinant Lorena Lue [facility] 05-13-2020 SARS-CoV-2 (COVID-19 ) Ad26 vaccine, recombinant Lorena Lue [facility] Payers Date Payer Category Payer Private Health Insurance AARP mber [id number] 2013 Medicare MEDICARE [id number] 1959 Medicare [id number] 1959 Unknown [id number] 1948 Unknown [id number] 2.16.840.1.126588.3.579.2 1948 Unknown [id number] 2.840.1.767396.3.579.2 1948 Unknown [id number] 2.16840.1.055303.3.579.2 1948 Unknown [id number] 2.16840.1.055351.3.579.2 1948 Unknown [id number] 2.16.840.1.637596.3.579.2 1948 Unknown [id number] 2.16840.1.089502.3.579.2 1948 Unknown [id number] 2.16.840.1.602172.3.579.2 9 Unknown [id number] 2.16.840.1.114179.3.579.2 .727 1948 Unknown [id number] 2.16.840.1.640929.3.579.2 .593 1948 Unknown [id number] 2.16.840.1.703714.3.579.2 .593 1948 Unknown [id number] 2.16.840.1.200641.3.579.2 .593 1948 Unknown [id number] 2.16.840.1.181061.3.579.2 .593 1948 Unknown [id number] 2.16.840.1.965576.3.579.2 .593 1948 Unknown [id number] 2.16.840.1.025758.3.579.2 .1259 1948 Unknown [id number] 2.16.840.1.191626.3.579.2 .1259 1948 Unknown [id number] 2.16.840.1.413328.3.579.2 .1259 1948 Unknown [id number] 2.16.840.1.819077.3.579.2 .1259 1948 Unknown [id number] 2.16840.1.272876.3.579.2 .125 1948 Unknown [id number] 2.16.840.1.625334.3.579.2 .1259 1948 Unknown [id number] 2.16840.1.560516.3.579.2 .125 1948 Unknown [id number] 2.16.840.1.533748.3.579.2 .1259 Medicare [id number] Social History Date Type Detail Facility Start: 06-04-2021 End: 02-29-2024 Tobacco smoking status Never smoked tobacco (finding) [facility] Tobacco smoking status Never [facility] Start: 11-10-2022 End: 05-16-2024 Sex Assigned At Female [facility] Start: 11-10-2022 Alcoholic beverage intake Lifetime non-drinker (finding) [facility] Start: 11-10-2022 End: 05-16-2024 History of Social function [facility] Start: 1950 Sex assigned at Female [facility] Start: 11-03-2022 Gender identity Identifies as female gender (finding) [facility] Start: 11-03-2022 Sexual orientation Heterosexual (finding) [facility] Start: 02-29-2024 Tobacco use and exposure Smokeless tobacco non-user [facility] Start: 02-29-2024 End: 05-16-2024 Alcoholic beverage intake Ex-drinker (finding) [facility] Functional Status Date Assessment Result Facility 04-24-2022 Functional Status N/A [facility] 10-08-2021 Functional Status N/A [facility] Clinical Notes 06-24-2021 to 05-16-2024 Refugio Billingsley, CREDIT INVESTIGATOR-TELEVISION SCRIPT WRITER - 05/16/2024 8:40 AM Nimesh Canales, PT - 03/23/2024 6:12 PM Nimesh Canales PT - 03/21/2024 8:15 AM Romeo Worthy, PT - 03/17/2024 8:00 AM EST Note Date & Type Note Facility 05-16-2024 History of Present illness Narrative Lesions: Location: face Duration: on going Quality: denies pain, denies itch, denies bleeding Associated symptoms: non-healing, rough Treatments: none New patient All pertinent medical history, medications, and allergies were reviewed. General Exam: alert, oriented to person, place, and time, normal affect, well appearing Unaccompanied A focused exam completed based on patient reported problems, see below: 1. Seborrheic keratosis Head - Anterior (Face) Stuck on verrucous, variably pigmented papules and plaques. Patient was counseled regarding these benign growths. Removal is normally not necessary, but they may be removed if they are symptomatic or for cosmetic reasons. 2. Actinic keratosis (2) Left Forehead, Left Zygomatic Area Erythematous scaly papules Patient was counseled regarding these sun-induced growths that can develop into squamous cell carcinoma if left untreated. Discussed treatment with cryotherapy. It was emphasized that any treated lesions that fail to resolve should be re-evaluated. Cryotherapy performed today; see procedure note Diagnosis: Actinic keratosis Indication: Precancerous Location: see skin exam Consent: Verbal consent was obtained and risks were discussed, including, but not limited to risks of scarring, darker or black mill operator pigmentary changes, recurrence, incomplete removal and infection. Method: Liquid nitrogen was used to treat the lesion(s) with two 5-10 second freeze-thaw cycles. Number of lesions treated: 2 Post-procedure instructions: Instructions were given orally and in writing. The office will be contacted if the lesion fails to resolve despite treatment, or if a side effect develops such as abnormal crusting, scabbing, redness or tenderness Cryotherapy, skin lesion - Left Forehead, Left Zygomatic Area Next Visit: rec pt schedule FBSE documented in this encounter [facility] 03-23-2024 History of Present illness Narrative Patient called and cancelled next appointment indicating that her dizziness/vertigo has completely resolved and that she is back to normal. No additional PT is needed at this time-Kenn Canales, PT documented in this encounter [facility] 03-21-2024 History of Present illness Narrative 1Physical Therapy Physical Therapy Treatment Visit Patient Name: Cori Lees Today's Date: 03/21/2024 Encounter Diagnoses Name Primary? BPPV (benign paroxysmal positional vertigo), right Yes Time In: 8:15 am Time Out: 9:00 am Supervised Time: 45 min Total Time: 45 min Visit Number: 5 Medicare Chief Complaint: H81.11: BPPV Right side Precautions: History of Tinnitus, bilateral sensorineural hearing loss Subjective Mechanism of injury: Has history of recurrent vertigo and Meniere's Disease. Started feeling light headed pre-dizzy x 1-2 weeks prior to initial evaluation with PT. Mild nausea. Worse with roll to right. Has history of pinched nerve C-spine right side. Treated with chin tucks, cause mild nausea also. History of right CTS. Progress: Reports no spinning vertigo but has not attempted to lay flat (fear of reproduction). Overall has had minimal symptoms and is pleased with progress. Objective Negative Mexican Hat-hallpike bilaterally today. 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 4. Home program in place to manage symptoms indep. PT Assessment:: The patient has participated in 5 outpatient sessions since start of care on 03/02/24 for BPPV and cervicogenic vertigo. Reports no spinning vertigo but has not attempted to lay flat (fear of reproduction). Overall has had minimal symptoms and is pleased with progress. Demonstrates negative Ashlee Hallpike on the left. Positive Ashlee Hallpike on the left. Incomplete resolution with the Left Sunday and BBQ Roll X2 with negative retest. Patient additionally benefited from cervical distraction and occipital release. Asymptomatic at completion of session. Patient encouraged to do normal neck stretches and attempt to sleep in bed tonight. Tomorrow morning is to roll in bed to attempt to bring on vertigo. If absent, would indicate successful resolution of BPPV. Patient is scheduled Wednesday if necessary. Continue per PT POC. Plan: Recommend outpatient PT 1-3/week for 4-8 weeks per above PT POC pending patient progress and PE) I hereby deem this POC medically necessary. Please sign below and fax back to the number below. Physician Signature: Date: documented in this encounter [facility] 03-17-2024 History of Present illness Narrative Time In: 8:05 am Time Out: 8:50 am Supervised Time: 35 min Total Time: 45 min Visit Number: 4, Medicare Chief Complaint: H81.11: BPPV Right side Precautions: History of Tinnitus, bilateral sensorineural hearing loss Subjective Mechanism of injury: Has history of recurrent vertigo and Meniere's Disease. Started feeling light headed pre-dizzy x 1-2 weeks prior to initial evaluation with PT. Mild nausea. Worse with roll to right. Has history of pinched nerve C-spine right side. Treated with chin tucks, cause mild nausea also. History of right CTS. Progress: Better after last treatment. 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 4. Home program in place to manage symptoms indep. Assessment: pt has received 4 treatments of physical therapy from 03/02/24 to today. Negative Mexican Hat Hallpike today and negative horizontal canal testing. Addressed cervical spine today, mild vertigo during treatment. Pt is completing postural exercises and gaze stabilization ex. Plan: PT 1-2x/week x 3-4 weeks I hereby deem this POC medically necessary. Please sign below and fax back to the number below. Physician Signature: Date: documented in this encounter [facility] 03-14-2024 History of Present illness Narrative Time In: 12:15 pm Time Out: 1:00 am Supervised Time: 35 min Total Time: 45 min Visit Number: 3, Medicare Chief Complaint: H81.11: BPPV Right side Precautions: History of Tinnitus, bilateral sensorineural hearing loss Subjective Mechanism of injury: Has history of recurrent vertigo and Meniere's Disease. Started feeling light headed pre-dizzy x 1-2 weeks prior to initial evaluation with PT. Mild nausea. Worse with roll to right. Has history of pinched nerve C-spine right side. Treated with chin tucks, cause mild nausea also. History of right CTS. Progress: Lay flat in bed last night, woke with mild BPPV. Had been sleeping in recliner. Objective Negative Mexican Hat-hallpike bilaterally today. 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 4. Home program in place to manage symptoms indep. Assessment: pt has received 3 treatments of physical therapy from 03/02/24 to today. Negative Ashlee Hallpike today but positive horizontal canal testing. Addressed with repositioining log roll technique with positive results Plan: PT 1-2x/week x 3-4 weeks I hereby deem this POC medically necessary. Please sign below and fax back to the number below. Physician Signature: Date: documented in this encounter [facility] 03-06-2024 History of Present illness Narrative Time In: 9:15 am Time Out: 10:05 am Supervised Time: 40 min Total Time: 50 min Visit Number: 2, Medicare Chief Complaint: H81.11: BPPV Right side Precautions: History of Tinnitus, bilateral sensorineural hearing loss Subjective Mechanism of injury: Has history of recurrent vertigo and Meniere's Disease. Started feeling light headed pre-dizzy x 1-2 weeks prior to initial evaluation with PT. Mild nausea. Worse with roll to right. Has history of pinched nerve C-spine right side. Treated with chin tucks, cause mild nausea also. History of right CTS. Progress: Still feels light headed. No vertigo recently. Has decreased salt in diet to address Meniere's Disease. Pt states Zyrtec medication decreases feeling of dizziness also. Objective Negative Ashlee-hallpike bilaterally today Addressed cervical restrictions in PT today, added postural exercises. Continued gaze stabilization exercises. 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 4. Home program in place to manage symptoms indep. Assessment: pt has received 2 treatments of physical therapy from 03/02/24 to today. Negative Ashlee Hallpike today. Addressed possible cervicogenic vertigo. Will re-assess next visit. Plan: PT 1-2x/week x 3-4 weeks I hereby deem this POC medically necessary. Please sign below and fax back to the number below. Physician Signature: Date: documented in this encounter [facility] 02-29-2024 History of Present illness Narrative Subjective Patient ID: Cori Lees is a 73 y.o. female who presents for Tinnitus (Audio 02/23/24) Pt reports a long h/o silvana HPNPT. Fluctuates in intensity. Pt also reports she gets periodic vertigo with N/V. Laying in bed with head to RT brings on sx. Has spells at other times that last up to a day. Tx with dyazide and zyrtec. Pt feels dyazide has helped. Audio shows silvana mild to moderate downsloping SNHL. Review of Systems All other systems reviewed and are negative. Family History Problem Relation Name Age of Onset Lung cancer Mother Nasreen Echeverria Cancer Mother Nasreen Echeverria Active Ambulatory Problems Diagnosis Date Noted Arthritis 11/10/2022 BMI 40.0-44.9, adult ([facility]) 11/10/2022 Carpal tunnel syndrome 11/10/2022 Hyperlipidemia ([facility]) 11/10/2022 Pure hypercholesterolemia ([facility]) 11/10/2022 Bronchial asthma ([facility]) 02/24/2024 Cervical polyp 02/24/2024 Chronic venous insufficiency of lower extremity 02/24/2024 Complete tear of left rotator cuff 02/24/2024 Dependent edema 02/24/2024 Hypothyroidism ([facility]) 02/24/2024 Screening for malignant neoplasm of colon 02/24/2024 Seasonal allergic rhinitis 02/24/2024 Urethral caruncle 02/24/2024 Vaginal atrophy 02/24/2024 Resolved Ambulatory Problems Diagnosis Date Noted No Resolved Ambulatory Problems Past Medical History: Diagnosis Date Dizziness Hypercholesterolemia (CMS/HCC) Macular degeneration Obesity Tinnitus Past Surgical History: Procedure Laterality Date CARPAL TUNNEL RELEASE Bilateral 2019 CHOLECYSTECTOMY 2005 FOOT SURGERY Hammertoes Pt doesnt recall which toes or date [facility] HIP SURGERY Left 2008 Replacement SINUS SURGERY 2002 Allergies Allergen Reactions Pseudoephedrine Rash Other Reaction(s): [...] well-nourished and well-groomed, Constitutional comments: Strongly positive Ashlee-Hallpike to the Right. Head and Face Appearance: [...] (benign paroxysmal positional vertigo), right Pt has silvana tinnitus cv/w her silvana SNHL. Does not need JAIMES. I agree she may have Meniere's, but she definitely has severe right BPPV. I will arrange for a RT Sunday. Hold dyazide for now, as pt has only been taking PRN. I will reassess pt once sunday completed and restart Meniere's tx if sx persist.. documented in this encounter [facility] 02-23-2024 History of Present illness Narrative History: Pt was referred to ENT because of tinnitus. Pt reports slight ringing tinnitus, onset years ago. In December pt heard squeaking sounds in her ears and noticed tinnitus is louder. Pt also reports periodic episodes of vertigo and balance issues. Pt has not noticed any changes in her hearing. Otoscopic Exam: Ear canal clear and TM intact AU Pure Tone Audiometry Right Ear: Mild to moderate sensorineural hearing loss above 3K Hz Left Ear: Mild to moderate sensorineural hearing loss above 2K Hz Speech Audiometry Right SRT = 15 dB and word discrimination score at 50 dBHL = 100% Left SRT = 20 dB and word discrimination score at 50 dBHL = 100% Tympanometry Right Ear: Type B tympanogram Left Ear: Type tympanogram documented in this encounter [facility] 05-27-2022 Note OPERATIVE NOTE OPERATION DATE: 05/27/2022 [...] to recovery room in good condition. CC: Rico Hammer M.D. [facility] 04-24-2022 Note Chief Complaint consultation for colonoscopy [...] 1 tab(s), Oral, Bedtime Flonase 0.05 mg/inh [place], 1 spray(s), Nasal, BID ICaps AREDS 2 [...] Mother. Immunizations Vaccine Date Status SARS-CoV-2 (COVID-19) [id number].[id number] 01/08/2022 Recorded influenza virus vaccine, inactivated 12/12/2021 Recorded SARS-CoV-2 (COVID-19) mRNA-1273 vaccine 07/22/2021 Recorded SARS-CoV-2 (COVID-19) mRNA-1273 vaccine 02/12/2021 Recorded SARS-CoV-2 (COVID-19) Ad26 vaccine 01/2021 Recorded SARS-CoV-2 (COVID-19) Ad26 vaccine 06/2020 Recorded SARS-CoV-2 (COVID-19) Ad26 vaccine 05/2020 Recorded [facility] Comment on above: Result Comment: Elec tronically Signed By: CORAL WALSH, Noam Galindo.sergey\Date and Time Signed: 04/24/22 14:42 EST 10-08-2021 Hospital Discharge instructions Patient Education 10/08/2021 10:00:26 Abdominal Pain, Adult, Hkna-bs-Zegl Abdominal Pain, Adult Many things can cause belly (abdominal) pain. Most times, belly pain is not dangerous. Many cases of belly pain can be watched and treated at home. Sometimes, though, belly pain is serious. Your doctor will try to find the cause of your belly pain. Follow these instructions at home: Medicines Take gyhn-fmk-xqkkdat and prescription medicines only as told by [...] your belly pain for any changes. Take sted-gik-uhwkxaa and prescription medicines only as told by [...] 09/14/2008 Document Revised: 08/07/2019 Document Reviewed: 08/07/2019 [employer] Patient Education 2020 [employer] Follow Up Care 09/04/2021 10:44:24 With:Jesus WALSH, DOREEN Story, [facility] Address: [address] [place] [phone] When: Unknown [facility] 06-24-2021 Note Urology Cystoscopy Cystoscopy is a [...] including vitamins, herbs, eye drops, creams, and dsal-dsm-urnqkmw medicines. ? Any problems you or family [...] tells you to take them. ? Taking fjph-qjw-wfoelsu medicines, vitamins, herbs, and supplements. ? Follow [...] these instructions at home: Medicines ? Take syly-bvs-zptlhdn and prescription medicines only as told by [...] This is importa (more content not included)... [facility] Evaluation + Plan note No data available for this section [facility] Evaluation note Diagnosis Bilateral tinnitus- Primary Sensorineural hearing loss (SNHL), bilateral BPPV (benign paroxysmal positional vertigo), right [facility] Diagnosis Sensorineural hearing loss, bilateral- Primary Tinnitus, bilateral Unspecified tinnitus [facility] Diagnosis BPPV (benign paroxysmal positional vertigo), right [facility] Diagnosis BPPV (benign paroxysmal positional vertigo), right- Primary documented in this encounter [facility]* Diagnosis BPPV (benign paroxysmal positional vertigo), right- Primary documented in this encounter [facility]* Diagnosis BPPV (benign paroxysmal positional vertigo), right- Primary BPPV (benign paroxysmal positional vertigo), right- Primary [facility] Diagnosis BPPV (benign paroxysmal positional vertigo), right- Primary documented in this encounter [facility]* Diagnosis Seborrheic keratosis- Primary Actinic keratosis documented in this encounter [facility] Discharge instructions No data available for this section General Surgery [facility] Progress note No data available for this section [facility] reason for visit Narrative* Rehabilitation - Outpatient (Routine) - Authorized Specialty Diagnoses / Procedures Referred By Contac t Referred To Contact Physical Therapy Diagnoses BPPV (benign paroxysmal positional vertigo), right Procedures OK OFFICE/OUTPATIENT [facility] Kobe Marvin MD [address] [facility] [address] [place] [address] Phone: tel: fax: Kenn Canales, PT [address] [place] [address] Phone: tel: fax: Referral ID Status Reason Start Date Expiration Date Visits Requested Visits Authorized [id number] Authorized Consult and Treat 02/29/2024 08/27/2024 20 20 [facility] - Outpatient (Routine) - Authorized Specialty Diagnoses / Procedures Referred By Derik t Referred To Contact Physical Therapy Diagnoses BPPV (benign paroxysmal positional vertigo), right Procedures OK OFFICE/OUTPATIENT [facility] Kobe Marvin MD [address] [facility] [address] [place] [address] Phone: tel: fax: Kenn Canales, PT [address] [place] [address] Phone: tel: fax: Referral ID Status Reason Start Date Expiration Date Visits Requested Visits Authorized [id number] Authorized Consult and Treat 02/29/2024 04/11/2024 20 20 [facility] Summary Purpose Family History No Family History Records FoundNo Family History Records FoundNo Family History Records FoundNo Family History Records Found Advance Directives No Advanced Directives Records FoundNo Advanced Directives Records FoundNo Advanced Directives Records FoundNo Advanced Directives Records Found Additional Source Comments Care Team (unrecognized sect ion and content) Supervisor Kennel Relationship Specialty Start Date End Date Rico Hammer MD [address] [place] [address] PCP - General Family Medicine 11/10/22 Supervisor Kennel Relationship Specialty Start Date End Date Rico Hammer MD [address] [place] [address] PCP - General Family Medicine 11/10/22 Supervisor Kennel Relationship Specialty Start Date End Date Rico Hammer MD [address] [place] [address] PCP - General Family Medicine 11/10/22 Supervisor Kennel Relationship Specialty Start Date End Date Rico Hammer MD [address] [facility] [place] [address] PCP - General Family Medicine 11/10/22 Supervisor Kennel Relationship Specialty Start Date End Date Rico Hammer MD [address] [facility] [place] [address] PCP - General Family Medicine 11/10/22 Supervisor Kennel Relationship Specialty Start Date End Date Rico Hammer MD [address] [facility], [id number] PCP - General Family Medicine 11/10/22 Supervisor Kennel Relationship Specialty Start Date End Date Rico Hammer MD [address] [facility], [id number] PCP - General Family Medicine 11/10/22 Supervisor Kennel Relationship Specialty Start Date End Date Rico Hammer MD [address] [facility], [phone] PCP - General Family Medicine 11/10/22 Supervisor Kennel Relationship Specialty Start Date End Date Rico Hammer MD [address] [facility], [id number] PCP - General Family Medicine 11/10/22 Supervisor Kennel Relationship Specialty Start Date End Date Rico Hammer MD [address] [facility] [place] [address] PCP - General Family Medicine 11/10/22 Supervisor Kennel Relationship Specialty Start Date End Date Rico Hammer MD [address] [facility] [place] [address] PCP - General Family Medicine 11/10/22 Supervisor Kennel Relationship Specialty Start Date End Date Rico Hmamer MD [address] [facility] [place] [address] PCP - General Family Medicine 11/10/22 INFORMATION SOURCE (unrecogn ized section and content) DATE CREATED AUTHOR 10/11/2021 [facility] dical Specialist DATE CREATED AUTHOR AUTHOR'S ORGANIZ ATION 06/05/2022 [facility] DATE CREATED AUTHOR AUTHOR'S ORGANIZ ATION 07/30/2022 [facility] DATE CREATED AUTHOR AUTHOR'S ORGANIZ ATION 05/17/2024 [facility] dical Specialists EPIC Reason for Visit (unrecogniz ed section and content) Reason Comments Tinnitus Audio 02/23/24 Reason Comments Suspicious Skin Lesion FOR RECORDS PERTAINING TO PATIENTS WHO ARE [...] BE BASED ON THE PRIMARY CLINICAL RECORDS. [facility] [employer] [facility]. provides no warranty or guarantee of the accuracy or completeness of information in this document.
== END 2024-08-23 11:09 | disposition home or self-care (01) ==
LOC: MAMMO 11:08
PROVIDERS: PCP Family Medicine; Visit Provider Family Medicine
DX: Z12.31 Encounter for screening mammogram for malignant neoplasm of breast (principal); Z80.1 Family history of malignant neoplasm of trachea, bronchus and lung; Z80.0 Family history of malignant neoplasm of digestive organs
CPT/HCPCS: 77063; 77067